=== PATIENT | male | born 1935 | race Caucasian/White ===

== ENCOUNTER → 2019-02-07 16:45 | Outpatient (CLI) | payer OTHER, SELFPAY ==
--- NOTE | 2019-02-07 16:49 | DI.RAD.S_ITS ---
PROCEDURE: XR CHEST 2V INDICATIONS: shortness of breath TECHNIQUE: 2 views of the chest were acquired. COMPARISON: [facility], RG, XR UGI AIR CONTRAST WITH KUB, 05/27/2005, 8:33. [facility], RG, XR CXR 2 VIEW, 08/20/2003, 8:34. FINDINGS: Surgical changes and devices: None. Lungs and pleura: Lungs are clear. No pleural effusions or pneumothorax. The lungs are hyperexpanded, with flattening of the hemidiaphragms seen. Mediastinum: Mediastinal contours are normal. Heart size is normal. There is a large retrocardiac hiatal hernia seen. Bones and chest wall: No suspicious bony abnormalities. Age-appropriate bony degenerative changes are seen. Soft tissues appear unremarkable. IMPRESSION: Hyperexpanded lungs, without an acute cardiopulmonary process identified. Large retrocardiac hiatal hernia again identified. Dictated by: Jaylan James M.D. on 02/07/2019 at 16:04 Approved by: Jaylan James M.D. on 02/07/2019 at 16:04
== END ==
PROVIDERS: Visit Provider Physician Assistant
DX: R06.02 Shortness of breath (principal); K44.9 Diaphragmatic hernia without obstruction or gangrene
CPT/HCPCS: 71046

== ENCOUNTER 2019-02-07 17:51 | Emergency (ER) | payer OTHER, SELFPAY ==
[2019-02-07 17:55] VITALS: BP 108/82; PULSE 82; RESP 15; TEMP 36.7; O2SAT 93; BMI 27.1
--- NOTE | 2019-02-07 18:44 | ED.URI ---
HPI - URI/Sore Throat <STEVE Ziegler - Last Filed: 02/07/19 20:03> General Chief Complaint: Upper Respiratory Symptoms Stated Complaint: SENT BY [facility] Time Seen by Provider: 02/07/19 18:10 Source: patient and family Mode of arrival: ambulatory Limitations: no limitations History of Present Illness HPI Narrative: The patient is an 83-year-old female former smoker who presents with his for chief complaint of generalized fatigue and rhinorrhea. He states that he was seen at the walk-in clinic today, an x-ray was taken. He later received a phone call to come to the emergency department to have his heart evaluated. He denies any chest pain, cough, shortness of breath. He states his primary concern is fatigue, which has been ongoing since he went to a wedding in [place] this weekend. He denies any fevers. Denies any cough. He does complain of nasal congestion. Denies any nausea vomiting or diarrhea. Denies any abdominal pain. Denies any ear pain. Denies any sore throat. Related Data Home Medications Medication Instructions Recorded Confirmed aspirin 81 mg PO QDAY #0 08/13/12 latanoprost [Xalatan] 1 gtt OU HS #0 08/13/12 Allergies Allergy/AdvReac Type Severity Reaction Status Date / Time No Known Drug Allergies Allergy Verified 02/07/19 18:02 Review of Systems <STEVE Ziegler - Last Filed: 02/07/19 20:03> Review of Systems GENERAL: See HPI HEENT: See HPI RESPIRATORY: Denies dyspnea, cough, wheezing, hemoptysis, sputum. CARDIOVASCULAR: Denies chest pain, palpitations, orthopnea, edema, GASTROINTESTINAL: Denies nausea, vomiting, abdominal pain, diarrhea, constipation, melena. : Denies dysuria, frequency, incontinence, hematuria, urinary retention. MUSCULOSKELETAL: denies weakness, joint pain, or bony pain SKIN: Denies rash, skin lesions, or other NEUROLOGIC: Denies weakness, headache, numbness, change in speech, confusion, seizures, incoordination. PSYCHIATRIC: No concerning psychosocial issues. 12 point review of systems is negative except for those stated above PFSH <STEVE Ziegler - Last Filed: 02/07/19 20:03> Social History Smoking Status: Former smoker Social History Smoking Status: Former smoker Exam <STEVE Ziegler - Last Filed: 02/07/19 20:03> Narrative Exam Narrative: GENERAL: This obese patient, in no acute distress HEAD: Atraumatic. Normocephalic. No temporal or scalp tenderness. No pain is sinus palpation EYES: Pupils equal round and reactive. Extraocular motions intact. No scleral icterus. No injection or drainage. ENT: Nose without bleeding, purulent drainage or septal hematoma. Throat without erythema, tonsillar hypertrophy or exudate. Uvula midline. Airway patent. Bilateral TMs pearly og NECK: Trachea midline. No JVD or lymphadenopathy. Supple, nontender, no meningeal signs. CARDIOVASCULAR: Regular rate and rhythm RESPIRATORY: Clear to auscultation. Breath sounds equal bilaterally. No wheezes, rales, or rhonchi. No cough. No increased respiratory effort. No accessory muscle use. No stridor. GASTROINTESTINAL: Abdomen soft, non-tender, nondistended. No hepato-splenomegaly, or palpable masses. No guarding. EXTREMITIES: No clubbing, cyanosis, or edema. No joint tenderness, effusion, or edema noted. BACK: Nontender without deformity or crepitance. No flank tenderness. NEURO: AOx3. SKIN: No rash or erythema. Initial Vital Signs Initial Vital Signs: Vital Signs Temperature 98.1 F 02/07/19 17:55 Pulse Rate 82 02/07/19 17:55 Respiratory Rate 15 02/07/19 17:55 Blood Pressure 108/82 02/07/19 17:55 Pulse Oximetry 93 02/07/19 17:55 <Pablo Emanuel DO - Last Filed: 02/07/19 21:12> Initial Vital Signs Initial Vital Signs: Vital Signs Temperature 98.1 F 02/07/19 17:55 Pulse Rate 82 02/07/19 17:55 Respiratory Rate 15 02/07/19 17:55 Blood Pressure 108/82 02/07/19 17:55 Pulse Oximetry 93 02/07/19 17:55 Course <STEVE Ziegler - Last Filed: 05/22/19 20:03> Orders Ordered: ED Orders 02/07/19 18:26 EKG-12 Lead Stat 02/07/19 19:00 B Type Natriuretic Peptide Stat Complete Blood Count AUTO DIFF Stat Comprehensive Metabolic Panel Stat Prothrombin Time INR Stat Troponin & CK Cardiac Panel Stat Vital Signs - 8 hr 02/07/19 17:55 02/07/19 19:51 Temperature 98.1 F Pulse Rate 82 72 Respiratory Rate 15 20 Blood Pressure 108/82 Blood Pressure [Left Arm] 124/55 L Pulse Oximetry 93 95 <Pablo Emanuel DO - Last Filed: 02/07/19 21:12> Orders Ordered: ED Orders 02/07/19 18:26 EKG-12 Lead Stat 02/07/19 19:00 B Type Natriuretic Peptide Stat Complete Blood Count AUTO DIFF Stat Comprehensive Metabolic Panel Stat Prothrombin Time INR Stat Troponin & CK Cardiac Panel Stat Vital Signs - 8 hr 02/07/19 17:55 02/07/19 19:51 Temperature 98.1 F Pulse Rate 82 72 Respiratory Rate 15 20 Blood Pressure 108/82 Blood Pressure [Left Arm] 124/55 L Pulse Oximetry 93 95 MDM - URI/Sore Throat <ABRAHAM Ziegler-BC - Last Filed: 02/07/19 20:03> Lab Data Result diagrams: 02/07/19 19:00 02/07/19 19:00 Lab Results 02/07/19 02/07/19 02/07/19 Range/Units 19:00 19:00 19:00 WBC 4.9 (4.5-11.0) X10^3/uL RBC 4.96 (4.5-5.9) X10^6/uL Hgb 15.2 (13.5-17.5) g/dL Hct 46.4 (41-53) % MCV 93.5 (80-100) fL MCH 30.6 (26-34) PG MCHC 32.7 (30-36) % RDW 13.7 (11.6-14.8) % Plt Count 134 L (150-400) X10^3/uL Neut % (Auto) 75.4 H (50-75) % Lymph % (Auto) 11.1 L (25-40) % [place] % (Auto) 10.7 (3-14) % Eos % (Auto) 2.3 (2-4) % Baso % (Auto) 0.5 (0-2) % Neut # (Auto) 3700 (1350-3170) /uL Lymph # (Auto) 500 L (4082-4807) /uL [place] # (Auto) 500 (0-900) /uL Eos # (Auto) 100 (0-450) /uL Baso # (Auto) 0 (0-100) /uL PT 13.2 H (10.1-12.7) SECONDS INR 1.1 (0.9-1.3) Sodium 138 (137-145) mmol/L Potassium 4.3 (3.4-5.1) mmol/L Chloride 104 (98-107) mmol/L Carbon Dioxide 25 (22-32) mmol/L BUN 25 H (9-20) mg/dL Creatinine 1.30 H (0.66-1.25) mg/dL Estimated GFR 53.0 L (>60) mL/min BUN/Creatinine Ratio 19.2 (6-22) Glucose 95 (80-110) mg/dL Calcium 8.6 (8.4-10.2) mg/dL Total Bilirubin 0.7 (0.2-1.3) mg/dL AST 22 (17-59) IU/L ALT 20 L (21-72) IU/L Alkaline Phosphatase 63 (38-126) U/L Total Creatine Kinase 64 (55-170) U/L CK-MB (CK-2) TNP CK-MB (CK-2) Rel Index TNP Troponin I < 0.012 (0.01-0.034) ng/mL B-Natriuretic Peptide 140 H (<100) Total Protein 7.1 (6.3-8.2) g/dL Albumin 3.7 (3.5-5.0) g/dL Globulin 3.4 (1.7-4.1) g/dL Albumin/Globulin Ratio 1.1 (1.0-2.8) ECG Data Attestation: I personally reviewed and interpreted this ECG as follows: Interpretation: Sinus rhythm. Ventricular rate 77. Left bundle branch noted. No ectopy noted. viewed by Dr Adelfo ELLSWORTH Narrative Medical decision making narrative: The patient is an 83-year-old male who presents with sinus congestion and fatigue. He was evaluated at the walk-in clinic earlier today, and sent here for further cardiac rule out. His chest x-ray from earlier today had no abnormality other than hyperinflation, as well as his known hiatal hernia. I did not repeat his chest x-ray. I did do basic labs as well as an EKG. The patient and his requested to leave multiple times during his stay in the emergency department. He has some slightly decreased renal function, but no elevation of troponin. I discussed at length that he needs to follow up with primary care physician and gave him contact information for the health district resource officer. Coming going back to the emergency department for chest pain or shortness of breath or other acute concerns. Regarding his URI symptoms, I encouraged trial of nasal rinse as well as Flonase and vakr-kjr-[id number] medications. Encouraged the patient to follow up with a primary care provider multiple times. <Pablo Emanuel DO - Last Filed: 02/07/19 21:12> Lab Data Lab Results 02/07/19 02/07/19 02/07/19 Range/Units 19:00 19:00 19:00 WBC 4.9 (4.5-11.0) X10^3/uL RBC 4.96 (4.5-5.9) X10^6/uL Hgb 15.2 (13.5-17.5) g/dL Hct 46.4 (41-53) % MCV 93.5 (80-100) fL MCH 30.6 (26-34) PG MCHC 32.7 (30-36) % RDW 13.7 (11.6-14.8) % Plt Count 134 L (150-400) X10^3/uL Neut % (Auto) 75.4 H (50-75) % Lymph % (Auto) 11.1 L (25-40) % [place] % (Auto) 10.7 (3-14) % Eos % (Auto) 2.3 (2-4) % Baso % (Auto) 0.5 (0-2) % Neut # (Auto) 3700 (6370-0027) /uL Lymph # (Auto) 500 L (8044-7434) /uL [place] # (Auto) 500 (0-900) /uL Eos # (Auto) 100 (0-450) /uL Baso # (Auto) 0 (0-100) /uL PT 13.2 H (10.1-12.7) SECONDS INR 1.1 (0.9-1.3) Sodium 138 (137-145) mmol/L Potassium 4.3 (3.4-5.1) mmol/L Chloride 104 (98-107) mmol/L Carbon Dioxide 25 (22-32) mmol/L BUN 25 H (9-20) mg/dL Creatinine 1.30 H (0.66-1.25) mg/dL Estimated GFR 53.0 L (>60) mL/min BUN/Creatinine Ratio 19.2 (6-22) Glucose 95 (80-110) mg/dL Calcium 8.6 (8.4-10.2) mg/dL Total Bilirubin 0.7 (0.2-1.3) mg/dL AST 22 (17-59) IU/L ALT 20 L (21-72) IU/L Alkaline Phosphatase 63 (38-126) U/L Total Creatine Kinase 64 (55-170) U/L CK-MB (CK-2) TNP CK-MB (CK-2) Rel Index TNP Troponin I < 0.012 (0.01-0.034) ng/mL B-Natriuretic Peptide 140 H (<100) Total Protein 7.1 (6.3-8.2) g/dL Albumin 3.7 (3.5-5.0) g/dL Globulin 3.4 (1.7-4.1) g/dL Albumin/Globulin Ratio 1.1 (1.0-2.8) Discharge Plan Departure Patient Disposition: Home Clinical Impression: Upper respiratory infection Qualifiers: URI type: unspecified viral URI Qualified Code(s): J06.9 - Acute upper respiratory infection, unspecified Discharge Date/Time: 02/07/19 19:59 Interventions: ED Discharge Assessment Last Done: 02/07/19 19:59 Instructions: DI for Viral Upper Respiratory Infection -- Adult Activity Restrictions/Additional Instructions: Please follow up with primary care provider. I have given you contact information to the health district resource officer at [facility]. They can help you find a primary care provider. Your kidney function is slightly reduced. I suggest a combination of Flonase, Esteban med sinus rinse and/or Neti pot. You can use [id number]-[id number] medications as needed and able. Please come back to the emergency department for any acute concerns such as chest pain, shortness of breath, concern of heart attack or stroke Prescriptions: No Action latanoprost [Xalatan] 0.005 % drops 1 gtt OU HS Qty: 0 RF: 0 aspirin 81 MG tablet,chewable 81 mg PO QDAY Qty: 0 RF: 0 Referrals: [facility] [Outside] <Pablo Emanuel DO - Last Filed: 02/07/19 21:12> Cosign ED Attending Lloyd Attestation: I was available for consultation during this patient's emergency department encounter
[2019-02-07 19:10] LABS: Add Manual Diff / Slide Review NO; Basophils Absolute Auto 0 /uL (0-100); Basophils Percent Auto 0.5 % (0-2); Eosinophils Absolute Auto 100 /uL (0-450); Eosinophils Percent Auto 2.3 % (2-4); Hematocrit 46.4 % (41-53); Hemoglobin 15.2 g/dL (13.5-17.5); Lymphocytes Absolute Auto 500 /uL (1100-4500); Lymphocytes Percent Auto 11.1 % (25-40); Mean Corpuscular HGB Conc 32.7 % (30-36); Mean Corpuscular Hemoglobin 30.6 PG (26-34); Mean Corpuscular Volume 93.5 fL (80-100); Monocytes Absolute Auto 500 /uL (0-900); Monocytes Percent Auto 10.7 % (3-14); Neutrophils Absolute Auto 3700 /uL (1500-7000); Neutrophils Percent Auto 75.4 % (50-75); Platelet Count 134 X10^3/uL (150-400); Red Blood Cell Count 4.96 X10^6/uL (4.5-5.9); Red Cell Distribution Width 13.7 % (11.6-14.8); White Blood Cell Count 4.9 X10^3/uL (4.5-11.0)
--- NOTE | 2019-02-07 19:11 | PC.NURSE ---
Pt states the yoanna huang is working.
[2019-02-07 19:17] LABS: INR 1.1 (0.9-1.3); Prothrombin Time 13.2 SECONDS (10.1-12.7)
[2019-02-07 19:22] LABS: Alanine Aminotransferase 20 IU/L (21-72); Albumin 3.7 g/dL (3.5-5.0); Albumin Globulin Ratio 1.1 (1.0-2.8); Alkaline Phosphatase 63 U/L (38-126); Aspartate Aminotransferase 22 IU/L (17-59); BUN Creatinine Ratio 19.2 (6-22); Bilirubin Total 0.7 mg/dL (0.2-1.3); Blood Urea Nitrogen 25 mg/dL (9-20); Calcium 8.6 mg/dL (8.4-10.2); Carbon Dioxide 25 mmol/L (22-32); Chloride 104 mmol/L (98-107); Creatine Kinase 64 U/L (55-170); Globulin 3.4 g/dL (1.7-4.1); Glucose 95 mg/dL (80-110); HEMOLYSIS < 15 (0-50); Potassium 4.3 mmol/L (3.4-5.1); Sodium 138 mmol/L (137-145); Total Protein 7.1 g/dL (6.3-8.2)
[2019-02-07 19:29] LABS: B Type Natriuretic Peptide 140 (<100)
[2019-02-07 19:34] LABS: Troponin I < 0.012 ng/mL (0.01-0.034)
[2019-02-07 19:51] VITALS: BP 124/55; PULSE 72; RESP 20; O2SAT 95
== END 2019-02-07 19:59 | disposition home or self-care (01) ==
PROVIDERS: Emergency Provider Nurse Practitioner Family
DX: J06.9 Acute upper respiratory infection, unspecified (principal); R53.83 Other fatigue
CPT/HCPCS: 36415; 71046; 80053; 82550; 83880; 84484; 85025; 85610; 93005; 93010; 99282; 99284

== ENCOUNTER 2023-02-08 11:06 | Inpatient (IN) | payer OTHER, SELFPAY ==
[2023-02-08] VITALS (44 sets, daily range): BP systolic 103–158; BP diastolic 58–125; PULSE 61–131; RESP 14–34; TEMP 36.3–36.8; O2SAT 91–98; BMI 28.0
--- NOTE | 2023-02-08 11:27 | DI.RAD.S_ITS ---
PROCEDURE: XR CHEST 1V INDICATIONS: Shortness of breath TECHNIQUE: One view of the chest was acquired. COMPARISON: [facility], CR, XR CHEST 2V, 02/07/2019, 16:52. FINDINGS: Surgical changes and devices: None. Lungs and pleura: [id number] diffuse lung disease. This is increased from prior imaging. Mediastinum: Borderline enlarged heart. Suspected hiatal hernia. Bones and chest wall: No suspicious bony lesions. Overlying soft tissues appear unremarkable. IMPRESSION: [id number]-[id number] infectious or inflammatory lung disease, versus edema. Consider future imaging surveillance to assess for resolution. Dictated by: Damion Porras M.D. on 02/08/2023 at 12:15 Approved by: Damion Porras M.D. on 02/08/2023 at 12:16
[2023-02-08] MEDS: ALBUTEROL/IPRATROPIUM 3 ML AMPUL INH (11:48)
[2023-02-08 11:53] LABS: Add Manual Diff / Slide Review NO; Basophils Absolute Auto 100 /uL (0-100); Basophils Percent Auto 0.7 % (0-2); Eosinophils Absolute Auto 300 /uL (0-450); Eosinophils Percent Auto 4.6 % (2-4); Hematocrit 46.5 % (41-53); Hemoglobin 15.5 g/dL (13.5-17.5); Lymphocytes Absolute Auto 1200 /uL (1100-4500); Lymphocytes Percent Auto 16.6 % (25-40); Mean Corpuscular HGB Conc 33.3 % (30-36); Mean Corpuscular Hemoglobin 31.5 PG (26-34); Mean Corpuscular Volume 94.5 fL (80-100); Monocytes Absolute Auto 700 /uL (0-900); Monocytes Percent Auto 9.7 % (3-14); Neutrophils Absolute Auto 5100 /uL (1500-7000); Neutrophils Percent Auto 68.4 % (50-75); Platelet Count 197 X10^3/uL (150-400); Red Blood Cell Count 4.92 X10^6/uL (4.5-5.9); Red Cell Distribution Width 14.1 % (11.6-14.8); White Blood Cell Count 7.4 X10^3/uL (4.5-11.0)
[2023-02-08 12:00] LABS: D Dimer 971 ng/ml (<500)
[2023-02-08 12:04] LABS: INR 1.2 (0.9-1.3); Prothrombin Time 13.2 SECONDS (10.1-12.7)
[2023-02-08 12:08] LABS: Alanine Aminotransferase 29 IU/L (<50); Albumin 4.1 g/dL (3.5-5.0); Albumin Globulin Ratio 1.2 (1.0-2.8); Alkaline Phosphatase 91 U/L (38-126); Aspartate Aminotransferase 32 IU/L (17-59); BUN Creatinine Ratio 18.9 (6-22); Bilirubin Total 1.1 mg/dL (0.2-1.3); Blood Urea Nitrogen 33 mg/dL (9-20); Calcium 8.9 mg/dL (8.4-10.2); Carbon Dioxide 25 mmol/L (22-32); Chloride 104 mmol/L (98-107); Estimated Glomerular Filt Rate 38 mL/min (>60); Globulin 3.5 g/dL (1.7-4.1); Glucose 128 mg/dL (80-110); Lactate (Lactic Acid) 1.4 mmol/L (0.7-2.1); Potassium 4.8 mmol/L (3.4-5.1); Sodium 140 mmol/L (137-145); Total Protein 7.6 g/dL (6.3-8.2)
[2023-02-08 12:21] LABS: HEMOLYSIS < 15 (0-50); NT-proBNP (BNP-Adult 18+) 10400 pg/mL (<450); Troponin I 0.013 ng/mL (0.01-0.034)
[2023-02-08 13:13] LABS: Adenovirus Not Detected (Not Detect); B. parapertussis Not Detected (Not Detecte); Bordetella pertussis Not Detected (Not Detecte); Chlamydophila pneumoniae Not Detected (Not Detect); Coronavirus 229E Not Detected (Not Detect); Coronavirus HKU1 Not Detected (Not Detect); Coronavirus NL 63 Not Detected (Not Detect); Coronavirus OC43 Not Detected (Not Detect); Human Metapneumovirus Not Detected (Not Detect); Human Rhinovirus/Enterovirus Not Detected (Not Detect); Influenza A Not Detected (Not Detect); Influenza B Not Detected (Not Detect); Mycoplasma pneumoniae Not Detected (Not Detect); Parainfluenza Virus 1 Not Detected (Not Detect); Parainfluenza Virus 2 Not Detected (Not Detect); Parainfluenza Virus 3 Not Detected (Not Detect); Parainfluenza Virus 4 Not Detected (Not Detect); Respiratory Syncytial Virus Not Detected (Not Detect); SARS- CoV-2 Not Detected (Not Detecte)
--- NOTE | 2023-02-08 14:07 | ED_ITS ---
HPI - SOB/Dyspnea General Chief Complaint: Shortness of Breath/Dyspnea Stated Complaint: shortness of breath Time Seen by Provider: 02/08/23 13:53 Source: patient Mode of arrival: Ambulatory Limitations: no limitations History of Present Illness HPI Narrative: This is an 87-year-old male with history of stroke and former tobacco use who presents with complaint of shortness of breath for the past week and a half that has been increasing, orthopnea which is, patient states he is able to ambulate and feels better when he ambulates but has had decreased energy. He is not appreciate a lot of swelling in his lower extremities. He does had chest pain often off intermittently. It is becoming more frequent. He states it is substernal does not radiate. Patient states not present at this moment. He denies cough, he denies fevers or chills. He denies nausea or vomiting, no syncope, no bowel movements or urinary issues. Patient states he is on a baby aspirin daily for his prior stroke. He states no other daily medications. Denies any prior surgeries. No known drug allergies. Quit tobacco around 1999, no active alcohol use, no illicit. Dr. Paulino is his primary care. He is accompanied by his and daughters. Related Data Home Medications Medication Instructions Recorded Confirmed aspirin 81 mg chewable tablet 81 mg PO QDAY ##0 08/13/12 02/08/23 latanoprost 0.005 % eye drops 1 gtt OU HS ##0 08/13/12 02/08/23 (Xalatan) Allergies Allergy/AdvReac Type Severity Reaction Status Date / Time No Known Drug Allergies Allergy Verified 02/08/23 11:23 Review of Systems Review of Systems ROS Unobtainable: All systems reviewed & are unremarkable except as noted in HPI and below Patient History Social History household members: spouse Smoking Status: Former smoker alcohol intake: former Smoking Status: Former smoker alcohol intake frequency: holidays/special occasions only Substance Use Type: does not use Exam Narrative Exam Narrative: GENERAL: Alert and oriented x three, elderly male in mild distress. HEENT: Head normocephalic, atraumatic, EOMI, pupils reactive, face symmetric, moist mucous membranes NECK: Supple, full range of motion CARDIOVASCULAR: Slightly tachycardic, occasionally irregularly irregular rate and rhythm without murmurs, rubs or gallops. No swelling bilateral lower extremities. Mild JVD. RESPIRATORY: Breath sounds equal bilaterally, no wheezes, no rhonchi. Bilateral crackles in the bases. Mild tachypnea. No accessory muscle use. Patient does speak 4-5 word sentences. ABDOMEN: Soft, nontender. Normoactive bowel sounds all 4 quadrants. No guarding or rebound, rigidity, no mass : No CVA tenderness EXTREMITIES: Normal range of motion, no clubbing or edema. Neurovascularly intact NEUROLOGICAL: Cranial nerves II through XII grossly intact. Moving all extremities SKIN: Warm, dry, no petechiae, no rashes or lesions. Initial Vital Signs Initial Vital Signs: Vital Signs Pulse Rate 126 H 02/08/23 11:21 Respiratory Rate 27 H 02/08/23 11:21 Pulse Oximetry 93 02/08/23 11:21 Course Orders Ordered: ED Orders 02/08/23 11:27 XR chest 1V Stat EKG-12 Lead Stat Measure peak expiratory flow ONCE RT Consult Eval and Treat NOW 02/08/23 11:35 EKG-12 Lead Routine 02/08/23 11:45 Complete Blood Count AUTO DIFF Stat Comprehensive Metabolic Panel Stat D Dimer Stat Lactate (Lactic Acid) Stat NT-proBNP (BNP-Adult 18+) Stat Prothrombin Time INR Stat Troponin I Stat 02/08/23 12:06 Respiratory Panel (Film Array) Stat 02/08/23 14:26 CT angio chest PE protocol Stat 02/08/23 14:32 Magnesium Stat Trop I [Troponin I] Stat 02/08/23 15:48 EC echo doppler complete Stat 02/08/23 22:00 PTT Partial Thromboplastin Abisai Q6H 02/09/23 04:00 PTT Partial Thromboplastin Abisai Q6H 02/09/23 05:00 Hemoglobin and Hematocrit DAILY Platelet Count DAILY 02/09/23 10:00 PTT Partial Thromboplastin Abisai Q6H 02/10/23 05:00 Hemoglobin and Hematocrit DAILY Platelet Count DAILY Heparin Sodium/Dextrose (Heparin Drip) 25,000 unit in 500 mls @ 20 mls/hr IV CONT BART; Protocol Last Admin: 02/08/23 17:28 Dose: 1,000 units/hr, 20 mls/hr Documented By: CLP Co-signed By: TLS Discontinued Medications Albuterol/Ipratropium (Albuterol/Ipratropium 3 Ml Ampul) 3 ml INH NOW ONE Stop: 02/08/23 11:44 Last Admin: 02/08/23 11:48 Dose: 3 ml Documented By: REGINE Aspirin (Aspirin 81 Mg Chew Tab) 324 mg PO NOW ONE Stop: 02/08/23 14:27 Last Admin: 02/08/23 14:53 Dose: 324 mg Documented By: NR Heparin Sodium (Porcine) (Heparin 5,000 Unit/Ml Vial) 6,900 unit 80 unit/kg (6900 unit) IV NOW ONE Stop: 02/08/23 15:49 Last Admin: 02/08/23 17:04 Dose: 6,900 unit Documented By: NR Furosemide 60 mg/ Sodium (Chloride) 56 mls @ 112 mls/hr IV NOW ONE Stop: 02/08/23 14:27 Last Infusion: 02/08/23 15:34 Dose: 0 mls/hr Documented By: Admin: 02/08/23 14:54 Dose: 112 mls/hr Documented By: NATALIIA Pantoprazole Sodium (Pantoprazole 40 Mg Vial) 40 mg IV NOW ONE Stop: 02/08/23 15:49 Last Admin: 02/08/23 17:04 Dose: 40 mg Documented By: NATALIIA Vital Signs Vital signs: Vital Signs - 8 hr 02/08/23 11:23 02/08/23 11:53 02/08/23 11:21 Temperature 98.2 F Pulse Rate 126 H 126 H Respiratory Rate 32 H 27 H Blood Pressure 151/85 H Pulse Oximetry 94 91 93 Oxygen Delivery Method Room Air Room Air 02/08/23 11:30 02/08/23 11:30 02/08/23 11:45 Temperature Pulse Rate 127 H 127 H Respiratory Rate 32 H 34 H Blood Pressure 139/78 Pulse Oximetry 94 93 Oxygen Delivery Method 02/08/23 12:00 02/08/23 12:02 02/08/23 12:02 Temperature Pulse Rate 124 H 122 H Respiratory Rate 14 30 H Blood Pressure 118/73 Pulse Oximetry 95 95 Oxygen Delivery Method Room Air 02/08/23 12:15 02/08/23 12:15 02/08/23 12:30 Temperature Pulse Rate 107 H 113 H Respiratory Rate 29 H 29 H Blood Pressure 134/78 Pulse Oximetry 91 91 Oxygen Delivery Method 02/08/23 12:31 02/08/23 12:31 02/08/23 12:45 Temperature Pulse Rate 113 H Respiratory Rate 30 H Blood Pressure 110/84 123/90 Pulse Oximetry 91 Oxygen Delivery Method Room Air 02/08/23 12:45 02/08/23 13:00 02/08/23 13:07 Temperature Pulse Rate 116 H 117 H Respiratory Rate 25 H 27 H Blood Pressure 149/98 H Pulse Oximetry 92 Oxygen Delivery Method 02/08/23 13:07 02/08/23 13:15 02/08/23 13:15 Temperature Pulse Rate 113 H 123 H Respiratory Rate 29 H 28 H Blood Pressure 139/92 H Pulse Oximetry 93 Oxygen Delivery Method 02/08/23 13:30 02/08/23 13:30 02/08/23 13:45 Temperature Pulse Rate 119 H Respiratory Rate 29 H Blood Pressure 125/89 127/94 H Pulse Oximetry 93 Oxygen Delivery Method 02/08/23 13:45 02/08/23 14:00 02/08/23 14:00 Temperature Pulse Rate 121 H 109 H Respiratory Rate 30 H 32 H Blood Pressure 155/125 H Pulse Oximetry 94 94 Oxygen Delivery Method Room Air 02/08/23 14:08 02/08/23 14:08 02/08/23 14:15 Temperature Pulse Rate 122 H 118 H Respiratory Rate 30 H 30 H Blood Pressure 147/80 H Pulse Oximetry 93 94 Oxygen Delivery Method 02/08/23 14:16 02/08/23 14:16 02/08/23 14:30 Temperature Pulse Rate 115 H 120 H Respiratory Rate 29 H 32 H Blood Pressure 151/83 H Pulse Oximetry 94 94 Oxygen Delivery Method 02/08/23 14:43 02/08/23 14:43 02/08/23 14:45 Temperature Pulse Rate 124 H Respiratory Rate 31 H Blood Pressure 103/75 105/84 Pulse Oximetry 95 Oxygen Delivery Method 02/08/23 14:45 02/08/23 15:00 02/08/23 15:00 Temperature Pulse Rate 126 H 125 H Respiratory Rate 29 H 27 H Blood Pressure 117/93 H Pulse Oximetry 94 91 Oxygen Delivery Method 02/08/23 15:15 02/08/23 15:15 02/08/23 15:30 Temperature Pulse Rate 121 H Respiratory Rate 26 H Blood Pressure 129/103 H 145/116 H Pulse Oximetry 94 Oxygen Delivery Method 02/08/23 15:30 02/08/23 15:45 02/08/23 15:45 Temperature Pulse Rate 124 H 110 H Respiratory Rate 32 H 29 H Blood Pressure 158/105 H Pulse Oximetry 93 93 Oxygen Delivery Method Room Air 02/08/23 16:00 02/08/23 16:00 Temperature Pulse Rate 122 H Respiratory Rate 33 H Blood Pressure 155/91 H Pulse Oximetry 95 Oxygen Delivery Method MDM - SOB/Dyspnea Lab Data 02/08/23 11:45 02/08/23 11:45 Labs: Lab Results 02/08/23 02/08/23 02/08/23 Range/Units 11:45 11:45 11:45 WBC 7.4 (4.5-11.0) X10^3/uL RBC 4.92 (4.5-5.9) X10^6/uL Hgb 15.5 (13.5-17.5) g/dL Hct 46.5 (41-53) % MCV 94.5 (80-100) fL MCH 31.5 (26-34) PG MCHC 33.3 (30-36) % RDW 14.1 (11.6-14.8) % Plt Count 197 (150-400) X10^3/uL Neut % (Auto) 68.4 (50-75) % Lymph % (Auto) 16.6 L (25-40) % [place] % (Auto) 9.7 (3-14) % Eos % (Auto) 4.6 H (2-4) % Baso % (Auto) 0.7 (0-2) % Neut # (Auto) 5100 (6242-8191) /uL Lymph # (Auto) 1200 (0183-2493) /uL [place] # (Auto) 700 (0-900) /uL Eos # (Auto) 300 (0-450) /uL Baso # (Auto) 100 (0-100) /uL PT 13.2 H (10.1-12.7) SECONDS INR 1.2 (0.9-1.3) D-Dimer (<500) ng/ml Sodium 140 (137-145) mmol/L Potassium 4.8 (3.4-5.1) mmol/L Chloride 104 (98-107) mmol/L Carbon Dioxide 25 (22-32) mmol/L BUN 33 H (9-20) mg/dL Creatinine 1.75 H (0.66-1.25) mg/dL Estimated GFR 38 L (>60) mL/min BUN/Creatinine Ratio 18.9 (6-22) Glucose 128 H (80-110) mg/dL Lactate (0.7-2.1) mmol/L Calcium 8.9 (8.4-10.2) mg/dL Magnesium (1.6-2.3) mg/dL Total Bilirubin 1.1 (0.2-1.3) mg/dL AST 32 (17-59) IU/L ALT 29 (<50) IU/L Alkaline Phosphatase 91 (38-126) U/L Troponin I 0.013 (0.01-0.034) ng/mL NT-Pro-B Natriuret Pep 72696 H (<450) pg/mL Total Protein 7.6 (6.3-8.2) g/dL Albumin 4.1 (3.5-5.0) g/dL Globulin 3.5 (1.7-4.1) g/dL Albumin/Globulin Ratio 1.2 (1.0-2.8) Chlamy pneumoniae PCR (Not Detect) Adenovirus (PCR) (Not Detect) B. pertussis DNA (PCR) (Not Detecte) B.parapertussis DNA PCR (Not Detecte) Coronavirus OC43 (PCR) (Not Detect) Coronavirus HKU1 (PCR) (Not Detect) Coronavirus 229E (PCR) (Not Detect) SARS-CoV-2 (PCR) (Not Detecte) Coronavirus NL63 (PCR) (Not Detect) Human Metapneumovir PCR (Not Detect) Influenza Type A (PCR) (Not Detect) Influenza Type B (PCR) (Not Detect) M. pneumoniae (PCR) (Not Detect) Parainfluenza 1 (PCR) (Not Detect) Parainfluenza 2 (PCR) (Not Detect) Parainfluenza 3 (PCR) (Not Detect) Parainfluenza 4 (PCR) (Not Detect) RSV (PCR) (Not Detect) Entero/Rhino (PCR) (Not Detect) 02/08/23 02/08/23 02/08/23 Range/Units 11:45 11:45 12:06 WBC (4.5-11.0) X10^3/uL RBC (4.5-5.9) X10^6/uL Hgb (13.5-17.5) g/dL Hct (41-53) % MCV (80-100) fL MCH (26-34) PG MCHC (30-36) % RDW (11.6-14.8) % Plt Count (150-400) X10^3/uL Neut % (Auto) (50-75) % Lymph % (Auto) (25-40) % [place] % (Auto) (3-14) % Eos % (Auto) (2-4) % Baso % (Auto) (0-2) % Neut # (Auto) (7072-2781) /uL Lymph # (Auto) (2952-7220) /uL [place] # (Auto) (0-900) /uL Eos # (Auto) (0-450) /uL Baso # (Auto) (0-100) /uL PT (10.1-12.7) SECONDS INR (0.9-1.3) D-Dimer 971 H (<500) ng/ml Sodium (137-145) mmol/L Potassium (3.4-5.1) mmol/L Chloride (98-107) mmol/L Carbon Dioxide (22-32) mmol/L BUN (9-20) mg/dL Creatinine (0.66-1.25) mg/dL Estimated GFR (>60) mL/min BUN/Creatinine Ratio (6-22) Glucose (80-110) mg/dL Lactate 1.4 (0.7-2.1) mmol/L Calcium (8.4-10.2) mg/dL Magnesium (1.6-2.3) mg/dL Total Bilirubin (0.2-1.3) mg/dL AST (17-59) IU/L ALT (<50) IU/L Alkaline Phosphatase (38-126) U/L Troponin I (0.01-0.034) ng/mL NT-Pro-B Natriuret Pep (<450) pg/mL Total Protein (6.3-8.2) g/dL Albumin (3.5-5.0) g/dL Globulin (1.7-4.1) g/dL Albumin/Globulin Ratio (1.0-2.8) Chlamy pneumoniae PCR Not detected (Not Detect) Adenovirus (PCR) Not detected (Not Detect) B. pertussis DNA (PCR) Not detected (Not Detecte) B.parapertussis DNA PCR Not detected (Not Detecte) Coronavirus OC43 (PCR) Not detected (Not Detect) Coronavirus HKU1 (PCR) Not detected (Not Detect) Coronavirus 229E (PCR) Not detected (Not Detect) SARS-CoV-2 (PCR) Not detected (Not Detecte) Coronavirus NL63 (PCR) Not detected (Not Detect) Human Metapneumovir PCR Not detected (Not Detect) Influenza Type A (PCR) Not detected (Not Detect) Influenza Type B (PCR) Not detected (Not Detect) M. pneumoniae (PCR) Not detected (Not Detect) Parainfluenza 1 (PCR) Not detected (Not Detect) Parainfluenza 2 (PCR) Not detected (Not Detect) Parainfluenza 3 (PCR) Not detected (Not Detect) Parainfluenza 4 (PCR) Not detected (Not Detect) RSV (PCR) Not detected (Not Detect) Entero/Rhino (PCR) Not detected (Not Detect) 02/08/23 02/08/23 Range/Units 14:32 14:32 WBC (4.5-11.0) X10^3/uL RBC (4.5-5.9) X10^6/uL Hgb (13.5-17.5) g/dL Hct (41-53) % MCV (80-100) fL MCH (26-34) PG MCHC (30-36) % RDW (11.6-14.8) % Plt Count (150-400) X10^3/uL Neut % (Auto) (50-75) % Lymph % (Auto) (25-40) % [place] % (Auto) (3-14) % Eos % (Auto) (2-4) % Baso % (Auto) (0-2) % Neut # (Auto) (6433-3706) /uL Lymph # (Auto) (4796-6458) /uL [place] # (Auto) (0-900) /uL Eos # (Auto) (0-450) /uL Baso # (Auto) (0-100) /uL PT (10.1-12.7) SECONDS INR (0.9-1.3) D-Dimer (<500) ng/ml Sodium (137-145) mmol/L Potassium (3.4-5.1) mmol/L Chloride (98-107) mmol/L Carbon Dioxide (22-32) mmol/L BUN (9-20) mg/dL Creatinine (0.66-1.25) mg/dL Estimated GFR (>60) mL/min BUN/Creatinine Ratio (6-22) Glucose (80-110) mg/dL Lactate (0.7-2.1) mmol/L Calcium (8.4-10.2) mg/dL Magnesium 2.1 (1.6-2.3) mg/dL Total Bilirubin (0.2-1.3) mg/dL AST (17-59) IU/L ALT (<50) IU/L Alkaline Phosphatase (38-126) U/L Troponin I 0.014 (0.01-0.034) ng/mL NT-Pro-B Natriuret Pep (<450) pg/mL Total Protein (6.3-8.2) g/dL Albumin (3.5-5.0) g/dL Globulin (1.7-4.1) g/dL Albumin/Globulin Ratio (1.0-2.8) Chlamy pneumoniae PCR (Not Detect) Adenovirus (PCR) (Not Detect) B. pertussis DNA (PCR) (Not Detecte) B.parapertussis DNA PCR (Not Detecte) Coronavirus OC43 (PCR) (Not Detect) Coronavirus HKU1 (PCR) (Not Detect) Coronavirus 229E (PCR) (Not Detect) SARS-CoV-2 (PCR) (Not Detecte) Coronavirus NL63 (PCR) (Not Detect) Human Metapneumovir PCR (Not Detect) Influenza Type A (PCR) (Not Detect) Influenza Type B (PCR) (Not Detect) M. pneumoniae (PCR) (Not Detect) Parainfluenza 1 (PCR) (Not Detect) Parainfluenza 2 (PCR) (Not Detect) Parainfluenza 3 (PCR) (Not Detect) Parainfluenza 4 (PCR) (Not Detect) RSV (PCR) (Not Detect) Entero/Rhino (PCR) (Not Detect) Imaging Data Chest x-ray: Radiologist's Impression: [address] [address] XRay Report Signed Patient: Bhanu Arevalo MR#: [id number] : 1935 Acct:[id number] Age/Sex: 87 / M Date of Service: 02/08/23 Loc: ED Accession Number: [id number] ?? Procedure: XR chest 1V Ordering Provider: Taylor Otero D.O. PROCEDURE:? XR CHEST 1V ? INDICATIONS:? Shortness of breath ? TECHNIQUE:? One view of the chest was acquired.? ? COMPARISON:? [facility], CR, XR CHEST 2V, 02/07/2019, 16:52. ? FINDINGS:? ? Surgical changes and devices:? None.? ? Lungs and pleura:? [id number] diffuse lung disease.? This is increased from prior imaging. ? Mediastinum:? Borderline enlarged heart.? Suspected hiatal hernia. ? Bones and chest wall:? No suspicious bony lesions.? Overlying soft tissues appear unremarkable.? ? IMPRESSION:? [id number] infectious or inflammatory lung disease, versus edema.? Consider future imaging surveillance to assess for resolution. ? ? ? Dictated by: Damion Porras M.D. on 02/08/2023 at 12:15 ? ? Approved by: Damion Porras M.D. on 02/08/2023 at 12:16?? CT scan - chest: Radiologist's Impression: Close Chest CTA (Signed) Jonathan Uriarte - 02/08/23 Chest X-Ray (Signed) Damion Porras - 02/08/23 Chest X-Ray (Signed) Jaylan James - 02/07/19 Launch?[address] [address] [address] Scan Report Signed Patient: Bhanu Arevalo MR#: [id number] : 1935 Acct:[id number] Age/Sex: 87 / M Date of Service: 02/08/23 Loc: ED Accession Number: [id number] ?? Procedure: CT angio chest PE protocol Ordering Provider: Taylor Otero D.O. PROCEDURE:? CT ANGIO CHEST PE PROTOCOL ? INDICATIONS:? chf, afib rvr new, dimer elevated. ? TECHNIQUE:? After the administration of intravenous contrast, 2 mm thick sections acquired from the pulmonary apices to the posterior costophrenic angles.? 3-dimensional maximum intensity projection (MIP) coronal and sagittal reformats were then acquired through the thorax.? For radiation dose reduction, the following was used:? automated exposure control, adjustment of mA and/or kV according to patient size.? ? COMPARISON:? None. ? FINDINGS:? Image quality:? Excellent.? ? Pulmonary arteries:? There is complete lack of contrast within the dependent, bilateral lower lobe pulmonary arteries beyond the segmental level.? For instance, the segmental pulmonary artery of the medial right lower lobe on series 4, image 107).? These vessels appear mildly expanded. ? Lungs and pleura:? Moderate right and trace left pleural effusion.? Confluent centrilobular emphysema.? Bronchial thickening.? Smooth interstitial thickening. ? Mediastinum:? Heart size is enlarged, without pericardial effusion.? No mediastinal or hilar adenopathy.? Thoracic aorta is normal in caliber and enhancement.? Esophagus is normal in caliber, with a large hiatal hernia contains the entire stomach.? The left ventricle is greater in size than the right.? Reflux of contrast into the IVC. ? Bones and chest wall:? No suspicious bony lesions.? Ribs and thoracic spine appear intact throughout.? Thyroid gland is unremarkable.? No axillary or supraclavicular adenopathy.? ? Abdomen:? Cirrhosis. ? IMPRESSION:? There is complete lack of contrast within the dependent, bilateral lower lobe pulmonary arteries beyond the segmental level.? These vessels appear mildly expanded.? While the differential includes early contrast timing, vessel expansion favors pulmonary emboli.? No evidence of infarct or heart strain. ? ? Moderate pulmonary edema, given smooth interstitial thickening, moderate right, trace left pleural effusions and bronchial thickening. ? Large hiatal hernia containing the entire stomach. ? Cirrhosis.? ? Dictated by: Jonathan Uriarte M.D. on 02/08/2023 at 14:06 ? ? Approved by: Jonathan Uriarte M.D. on 02/08/2023 at 14:11?? ECG Data Attestation: I personally reviewed and interpreted this ECG as follows: Interpretation: Sinus tachycardia left bundle-branch block, rate of 118 MT 192 QRS of 140 QTC of 510. Patient has prior from 02/07/2019 with prior left bundle-branch appears similar. AFib with a rate of 103 QRS of 140, QTC 484. Patient has left bundle-branch block with no acute or dynamic EKG changes appreciated otherwise. MDM Narrative Medical decision making narrative: This is an 87-year-old gentleman who has had increasing difficulty with breathing for the past week and a half with orthopnea he does not have a lot of swelling in his lower extremities but do suspect some CHF. He has been on aspirin but no other daily medications. He has a left bundle-branch block which is noted on prior EKGs he has been slightly tachycardic throughout his stay sometimes irregular but sometimes regular. Suspect he is flipping in and out of atrial fibrillation which may be contributing does congestive heart failure. Creatinine today is 1.75 appears bumped up from his baseline of 1.3. Hemoglobin appropriate at 15 with a crit 46, no leukocytosis, normal platelets, jorje ctrolytes do not show major changes. Lactate negative, LFTs are negative. BNP is 10,400 no priors for comparison. Initial troponin is negative and was repeated as he is had intermittent chest pain. Second troponin shows Dimer is elevated even when age adjusted and was obtained secondary to no prior CHF history. CT angio was obtained secondary to this shows possible pulmonary emboli and complete lack of contract in the dependent bilateral lower lobe pulmonary arteries below the segmental level differential includes early contrast timing but vessel expansion favors pulmonary emboli no evidence of infarct or heart strain. Moderate pulmonary edema with smooth interstitial thickening moderate right and trace left pleural effusions and bronchial thickening, large hiatal hernia and cirrhosis. Respiratory panel is negative. Patient's chest x-ray shows possible infiltrate versus inflammatory change versus edema and I suspect more edema. Discussed with Dr. Kang, plan for admission, gentle diuresis. Anticoagulation for possible pulmonary emboli, possibility include issue with contrast timing. Discussed with Dr. Loyola who accepts, will do anticoagulation with possible repeat imaging tomorrow. s rescanning tomorrow versus V/Q scan which would require ordering isotope. Patient's heart rate 120-140s during his stay. Critical Care Time Critical Care Time Attestation: The high probability of a clinically significant, sudden or life threatening deterioration of the [cardiac, pulm] system(s) required my full and direct attention, intervention and personal management. The aggregate critical care time was [] minutes. This time is in addition to time spent performing reported procedures but includes the following: [x] Data Review and interpretation [x] Patient assessment and monitoring of vital signs [x] Documentation [x] Medication orders and management Discharge Plan Departure Patient Disposition: Admitted As Inpatient Clinical Impression: Acute exacerbation of CHF (congestive heart failure), Pulmonary embolism, Atrial fibrillation with rapid ventricular response Admit Date/Time: 02/08/23 16:02 Admit Provider: Shabnam Loyola
--- NOTE | 2023-02-08 14:26 | DI.CT.S_ITS ---
PROCEDURE: CT ANGIO CHEST PE PROTOCOL INDICATIONS: chf, afib rvr new, dimer elevated. TECHNIQUE: After the administration of intravenous contrast, 2 mm thick sections acquired from the pulmonary apices to the posterior costophrenic angles. 3-dimensional maximum intensity projection (MIP) coronal and sagittal reformats were then acquired through the thorax. For radiation dose reduction, the following was used: automated exposure control, adjustment of mA and/or kV according to patient size. COMPARISON: None. FINDINGS: Image quality: Excellent. Pulmonary arteries: There is complete lack of contrast within the dependent, bilateral lower lobe pulmonary arteries beyond the segmental level. For instance, the segmental pulmonary artery of the medial right lower lobe on series 4, image 107). These vessels appear mildly expanded. Lungs and pleura: Moderate right and trace left pleural effusion. Confluent centrilobular emphysema. Bronchial thickening. Smooth interstitial thickening. Mediastinum: Heart size is enlarged, without pericardial effusion. No mediastinal or hilar adenopathy. Thoracic aorta is normal in caliber and enhancement. Esophagus is normal in caliber, with a large hiatal hernia contains the entire stomach. The left ventricle is greater in size than the right. Reflux of contrast into the IVC. Bones and chest wall: No suspicious bony lesions. Ribs and thoracic spine appear intact throughout. Thyroid gland is unremarkable. No axillary or supraclavicular adenopathy. Abdomen: Cirrhosis. IMPRESSION: There is complete lack of contrast within the dependent, bilateral lower lobe pulmonary arteries beyond the segmental level. These vessels appear mildly expanded. While the differential includes early contrast timing, vessel expansion favors pulmonary emboli. No evidence of infarct or heart strain. Moderate pulmonary edema, given smooth interstitial thickening, moderate right, trace left pleural effusions and bronchial thickening. Large hiatal hernia containing the entire stomach. Cirrhosis. Dictated by: Jonathan Uriarte M.D. on 02/08/2023 at 14:06 Approved by: Jonathan Uriarte M.D. on 02/08/2023 at 14:11
[2023-02-08] MEDS: ASPIRIN 81 MG CHEW TAB 324 MG PO (14:53)
[2023-02-08] MEDS: FUROSEMIDE 60 MG in SODIUM CHLORIDE 0.9% 50 ML 112 MG IV (14:54)
[2023-02-08 15:13] LABS: Troponin I 0.014 ng/mL (0.01-0.034)
--- NOTE | 2023-02-08 15:48 | DI.ECHO.S_ITS ---
[facility] +---------+ : : [address] : [place] : : : : [id number] : : : : Phone: [phone]+ Echocardiogram Report + + :Name: MARE HANKINS Study Date: 02/09/2023 Height: 69 in : :[facility] ReadingLocation: Weight: 190 lb : : Gender: Male BSA: 2.0 m2 : :: 1935 Age: 87 yrs BP: 119/77 mmHg: :Reason For Study: CONGESTIVE HEART FAILURE : :Ordering Physician: ZAIRE, : :LEANNA Performed By: Hue Rae : :Referring: LEANNA TAI : + + Interpretation Summary The left ventricle is moderately dilated. The ejection fraction is estimated to be 20-25%. Diastolic function could not be accurately assessed due to atrial fibrillation. The left atrium is severely dilated. The right ventricle is mildly dilated. Right ventricular systolic function is mildly reduced. The right atrium is moderately dilated. There is severe mitral regurgitation. There is mild aortic regurgitation. There is moderate tricuspid regurgitation. The right ventricular systolic pressure is estimated to be at least 53 mmHg based on an estimated right atrial pressure of 15 mm Hg. Compared to prior study dated 08/14/2012, the ejection fraction has not significantly decreased. Procedure: A two-dimensional transthoracic echocardiogram with color flow and Doppler was performed. The study quality was technically adequate. Comparison is made with the echocardiogram of 08/14/2012. The patient was in atrial fibrillation with heart rates between 68-85 bpm during the exam. Left Ventricle: There is normal left ventricular wall thickness. The left ventricle is moderately dilated. The ejection fraction is estimated to be 20- 25%. Diastolic function could not be accurately assessed due to atrial fibrillation. Right Ventricle: The right ventricle is mildly dilated. Right ventricular systolic function is mildly reduced. Atria: The left atrium is severely dilated. The right atrium is moderately dilated. There is no Doppler evidence for an interatrial shunt. Mitral Valve: There is mild mitral annular calcification. The mitral valve leaflets appear moderately thickened, but open well. There is severe mitral regurgitation. Aortic Valve: The aortic valve is trileaflet. The aortic valve is mildly calcified. The peak aortic velocity is 2.0 m/sec. The aortic valve mean gradient is 9 mmHg. There is mild aortic regurgitation. Tricuspid Valve: The tricuspid valve leaflets are thickened and/or calcified, but open well. There is moderate tricuspid regurgitation. The right ventricular systolic pressure is estimated to be at least 53 mmHg based on an estimated right atrial pressure of 15 mm Hg. Pulmonic Valve: The pulmonic valve is not well seen, but is grossly normal. There is mild pulmonic regurgitation. Great Vessels: The aortic root is normal size. The dimensions of the ascending aorta are normal. The IVC is dilated (diameter is greater than 2.1 cm) and it collapses less than 50% with a sniff. This suggests a high right atrial pressure of 15 mm Hg. Pericardium/ Pleura There is no pericardial effusion. There is no pleural effusion. MMode/2D Measurements & Calculations LVIDd: 6.5 cm LVOT diam: 2.1 cm LVIDs: 6.0 cm Ao root diam: 3.0 cm FS: 8.5 % asc Aorta Diam: 3.2 cm EPSS: 2.0 cm Ao Arch Diam (Prox Trans): 2.6 cm IVSd: 0.81 cm LVPWd: 0.66 cm LV justin. diameter/BSA (cm/m^2): 3.2 LV sys. diameter/BSA (cm/m^2): 3.0 LA A2 area: 33.0 cm2 RA long axis: 5.9 cm LA A4 area: 29.2 cm2 RA area: 24.7 cm2 LA length (vol): 7.0 cm RA vol: 88.1 ml LA vol: 116.1 ml RA : 43.6 ml/m2 LA vol index: 57.5 ml/m2 IVC diam: 2.1 cm RVD1 (basal): 3.9 cm RVD2 (mid): 3.6 cm TAPSE: 1.6 cm Doppler Measurements & Calculations Ao V2 max: 200.8 cm/sec LVOT Max Magnus: 66.0 cm/sec Ao V2 mean: 141.1 cm/sec LV V1 max P.8 mmHg Ao max P.3 mmHg LV V1 VTI: 12.2 cm Ao mean P.0 mmHg KEVIN(I,D): 1.2 cm2 Ao V2 VTI: 34.0 cm KEVIN(V,D): 1.1 cm2 sev ratio: 0.36 KEVIN indexed to BSA (cm^2/m^2): 0.61 AI P1/2t: 1003 msec AI dec slope: 98.5 cm/sec2 MV E max magnsu: 145.6 cm/sec TR max magnus: 310.0 cm/sec MV A max magnus: 2.0 cm/sec TR max P.4 mmHg MV E/A: 73.1 Med Peak E' Magnus: 5.5 cm/sec E/E' med: 26.7 Lat Peak E' Magnus: 6.1 cm/sec E/E' lat: 23.7 E/e' average: 25.2 MV dec time: 0.13 sec MR ERO: 0.27 cm2 MR PISA: 3.6 cm2 SV(LVOT): 42.0 ml MR flow rate: 130.9 cm3/sec MR PISA radius: 0.75 cm Reading Physician:12:33 PM
[2023-02-08 16:07] LABS: Magnesium 2.1 mg/dL (1.6-2.3)
[2023-02-08] MEDS: PANTOPRAZOLE 40 MG VIAL IV (17:04)
[2023-02-08] MEDS: HEPARIN 5,000 UNIT/ML VIAL 6900 UNIT IV (17:04)
[2023-02-08] MEDS: HEPARIN DRIP 25,000 UNIT/500 ML IV.SOLN 20 UNIT IV (17:28)
--- NOTE | 2023-02-08 18:23 | PC.NURSE ---
Addendum entered by Mario Brown R.N. 02/08/23 19:34: Patient moved to room 231 for transfer orders to ICU for cardizem gtt. Re oriented to room and call light and urinal placed within reach. Report given to BRAND INSPECTOR to assume care at this time. Original Note: Patient brought up from ER to room 220. Oriented to room and call light. Patient denies pain at this time, states he has been short of breath and unable to lay down for 10 days, unable to sleep very much because he can't lay down. Denies swelling or pain in his legs. Per ER nurse patient received heparin gtt bolus and to be maintained on heparin gtt per non cardiac protocol, infusing as ordered. Dr. Loyola notified of patient's arrival, she is currently at bedside with patient. call light and urinal within reach, continue to monitor.
--- NOTE | 2023-02-08 18:41 | P.HP_ITS ---
History of Present Illness History of Present Illness Date Patient Seen: 02/08/23 Time Patient Seen: 18:41 Date of Onset of Symptoms: 01/30/23 Chief complaint: shortness of breath Narrative: This is a very pleasant fairly healthy 87-year-old male who has seen Dr. Guillaume once in June of 2021. He has had little care from physicians. He apparently had a stroke in 2012 and was cared for by Dr. Mcclain. He was placed on aspirin. He had some word-finding difficulties and difficulties and articulation but otherwise really has no residual from this. When he was seen in June of [address] Guillaume started him on a statin but apparently he did not start this. He lives independently with his in his her caregiver as she has dementia. He lives here in [facility] and does all the work for his house. He is 4 adult sons who live in the area. His son and 1 of his [id number] was present at the time that I met with him and they helped with history. The patient has had approximately 10 day history of progressive worsening in shortness of breath including orthopnea to the point that it is progressively worsened any has not been able to lay in his bed and sleep. He actually says that on the day that he 1st noted shortness of breath it was the worst but then he would just get up and sit upright in his chair to sleep. He is not noticed significant edema in his lower extremities. He is not had any chest pain but does feel some chest tightness and possibly some palpitations. He is not had any lightheadedness or dizziness but has had progressively worsening dyspnea with exertion and was feeling so poorly this morning that he wanted to be seen in the emergency room. Past medical history: 2012 CVA Medications: 81 mg of aspirin a day Allergies: No known drug allergies Past surgical history: Unremarkable Family history: Dad at 60 from an acute [place] Mom at 96 No other known family history of arrhythmias or strokes or diabetes Health related behavior: Patient previously smoked but quit about 20 years ago Patient previously used alcohol but quit about 20 years ago Patient is very active Review of systems: Patient denies any chest pain. Patient denies any lightheadedness dizziness, syncope or presyncope Patient denies any changes in his bowel movements. Denies any constipation, bleeding, bright red blood per rectum, diarrhea Patient denies any fevers or chills Patient denies any headaches or chronic cough Patient denies any leg pain or signs or symptoms of claudication Otherwise 12 point review of systems is negative Patient has not been traveling or sedentary for long periods of time PFSH Social History household members: spouse Smoking Status: Former smoker alcohol intake: former Meds Home Medications and Allergies Home Medications Medication Instructions Recorded Confirmed Type aspirin 81 mg chewable tablet 81 mg PO QDAY ##0 08/13/12 02/08/23 History latanoprost 0.005 % eye drops 1 gtt OU HS ##0 08/13/12 02/08/23 History (Xalatan) Allergies Allergy/AdvReac Type Severity Reaction Status Date / Time No Known Drug Allergies Allergy Verified 02/08/23 11:23 Exam Vital Signs (past 8 hours): - 02/08/23 11:23 02/08/23 11:53 02/08/23 11:21 Temperature 98.2 F Pulse Rate 126 H 126 H Respiratory Rate 32 H 27 H Blood Pressure 151/85 H Pulse Oximetry 94 91 93 Oxygen Delivery Method Room Air Room Air Oxygen Flow Rate 02/08/23 11:30 02/08/23 11:30 02/08/23 11:45 Temperature Pulse Rate 127 H 127 H Respiratory Rate 32 H 34 H Blood Pressure 139/78 Pulse Oximetry 94 93 Oxygen Delivery Method Oxygen Flow Rate 02/08/23 12:00 02/08/23 12:02 02/08/23 12:02 Temperature Pulse Rate 124 H 122 H Respiratory Rate 14 30 H Blood Pressure 118/73 Pulse Oximetry 95 95 Oxygen Delivery Method Room Air Oxygen Flow Rate 02/08/23 12:15 02/08/23 12:15 02/08/23 12:30 Temperature Pulse Rate 107 H 113 H Respiratory Rate 29 H 29 H Blood Pressure 134/78 Pulse Oximetry 91 91 Oxygen Delivery Method Oxygen Flow Rate 02/08/23 12:31 02/08/23 12:31 02/08/23 12:45 Temperature Pulse Rate 113 H Respiratory Rate 30 H Blood Pressure 110/84 123/90 Pulse Oximetry 91 Oxygen Delivery Method Room Air Oxygen Flow Rate 02/08/23 12:45 02/08/23 13:00 02/08/23 13:07 Temperature Pulse Rate 116 H 117 H Respiratory Rate 25 H 27 H Blood Pressure 149/98 H Pulse Oximetry 92 Oxygen Delivery Method Oxygen Flow Rate 02/08/23 13:07 02/08/23 13:15 02/08/23 13:15 Temperature Pulse Rate 113 H 123 H Respiratory Rate 29 H 28 H Blood Pressure 139/92 H Pulse Oximetry 93 Oxygen Delivery Method Oxygen Flow Rate 02/08/23 13:30 02/08/23 13:30 02/08/23 13:45 Temperature Pulse Rate 119 H Respiratory Rate 29 H Blood Pressure 125/89 127/94 H Pulse Oximetry 93 Oxygen Delivery Method Oxygen Flow Rate 02/08/23 13:45 02/08/23 14:00 02/08/23 14:00 Temperature Pulse Rate 121 H 109 H Respiratory Rate 30 H 32 H Blood Pressure 155/125 H Pulse Oximetry 94 94 Oxygen Delivery Method Room Air Oxygen Flow Rate 02/08/23 14:08 02/08/23 14:08 02/08/23 14:15 Temperature Pulse Rate 122 H 118 H Respiratory Rate 30 H 30 H Blood Pressure 147/80 H Pulse Oximetry 93 94 Oxygen Delivery Method Oxygen Flow Rate 02/08/23 14:16 02/08/23 14:16 02/08/23 14:30 Temperature Pulse Rate 115 H 120 H Respiratory Rate 29 H 32 H Blood Pressure 151/83 H Pulse Oximetry 94 94 Oxygen Delivery Method Oxygen Flow Rate 02/08/23 14:43 02/08/23 14:43 02/08/23 14:45 Temperature Pulse Rate 124 H Respiratory Rate 31 H Blood Pressure 103/75 105/84 Pulse Oximetry 95 Oxygen Delivery Method Oxygen Flow Rate 02/08/23 14:45 02/08/23 15:00 02/08/23 15:00 Temperature Pulse Rate 126 H 125 H Respiratory Rate 29 H 27 H Blood Pressure 117/93 H Pulse Oximetry 94 91 Oxygen Delivery Method Oxygen Flow Rate 02/08/23 15:15 02/08/23 15:15 02/08/23 15:30 Temperature Pulse Rate 121 H Respiratory Rate 26 H Blood Pressure 129/103 H 145/116 H Pulse Oximetry 94 Oxygen Delivery Method Oxygen Flow Rate 02/08/23 15:30 02/08/23 15:45 02/08/23 15:45 Temperature Pulse Rate 124 H 110 H Respiratory Rate 32 H 29 H Blood Pressure 158/105 H Pulse Oximetry 93 93 Oxygen Delivery Method Room Air Oxygen Flow Rate 02/08/23 16:00 02/08/23 16:00 02/08/23 16:15 Temperature Pulse Rate 122 H 124 H Respiratory Rate 33 H 33 H Blood Pressure 155/91 H Pulse Oximetry 95 95 Oxygen Delivery Method Oxygen Flow Rate 02/08/23 16:30 02/08/23 17:15 02/08/23 18:16 Temperature 97.3 F L Pulse Rate 124 H 61 Respiratory Rate 30 H 24 Blood Pressure 150/75 H Pulse Oximetry 94 95 Oxygen Delivery Method Room Air Oxygen Flow Rate 0 Oxygen Delivery Method Room Air Oxygen Flow Rate 0 Narrative Exam Narrative: Patient is alert and oriented no apparent distress. Patient is resting comfortably without any tachypnea until I do have him perform neurologic testing and even with this exertion he becomes acutely short of breath. He is slight tachypnea and use of accessory muscles but no intercostal retraction or nasal flaring HEENT is otherwise unremarkable Neck: Supple without adenopathy or thyromegaly but he does have 1+ jugular veno us distention. No carotid bruit Cor: Irregularly irregular rhythm with a rate in the 120s with distant S1-S2 and no audible murmur at this time Chest: Patient with bibasilar crackles and decreased breath sounds right greater than left Abdomen: Positive bowel sounds, soft, nontender, nondistended Extremities show trace pitting edema pretibial. Pulses intact and feet are well-perfused Neurologic exam is nonfocal Cranial nerves 2-12 are grossly intact. Sensations intact to light touch Objective Labs 02/08/23 11:45 02/08/23 11:45 Labs: Laboratory Results - last 24 hr 02/08/23 02/08/23 02/08/23 11:45 11:45 11:45 WBC 7.4 RBC 4.92 Hgb 15.5 Hct 46.5 MCV 94.5 MCH 31.5 MCHC 33.3 RDW 14.1 Plt Count 197 Neut % (Auto) 68.4 Lymph % (Auto) 16.6 L [place] % (Auto) 9.7 Eos % (Auto) 4.6 H Baso % (Auto) 0.7 Neut # (Auto) 5100 Lymph # (Auto) 1200 [place] # (Auto) 700 Eos # (Auto) 300 Baso # (Auto) 100 PT 13.2 H INR 1.2 D-Dimer Sodium 140 Potassium 4.8 Chloride 104 Carbon Dioxide 25 BUN 33 H Creatinine 1.75 H Estimated GFR 38 L BUN/Creatinine Ratio 18.9 Glucose 128 H Lactate Calcium 8.9 Magnesium Total Bilirubin 1.1 AST 32 ALT 29 Alkaline Phosphatase 91 Troponin I 0.013 NT-Pro-B Natriuret Pep 91584 H Total Protein 7.6 Albumin 4.1 Globulin 3.5 Albumin/Globulin Ratio 1.2 Chlamy pneumoniae PCR Adenovirus (PCR) B. pertussis DNA (PCR) B.parapertussis DNA PCR Coronavirus OC43 (PCR) Coronavirus HKU1 (PCR) Coronavirus 229E (PCR) SARS-CoV-2 (PCR) Coronavirus NL63 (PCR) Human Metapneumovir PCR Influenza Type A (PCR) Influenza Type B (PCR) M. pneumoniae (PCR) Parainfluenza 1 (PCR) Parainfluenza 2 (PCR) Parainfluenza 3 (PCR) Parainfluenza 4 (PCR) RSV (PCR) Entero/Rhino (PCR) 02/08/23 02/08/23 02/08/23 11:45 11:45 12:06 WBC RBC Hgb Hct MCV MCH MCHC RDW Plt Count Neut % (Auto) Lymph % (Auto) [place] % (Auto) Eos % (Auto) Baso % (Auto) Neut # (Auto) Lymph # (Auto) [place] # (Auto) Eos # (Auto) Baso # (Auto) PT INR D-Dimer 971 H Sodium Potassium Chloride Carbon Dioxide BUN Creatinine Estimated GFR BUN/Creatinine Ratio Glucose Lactate 1.4 Calcium Magnesium Total Bilirubin AST ALT Alkaline Phosphatase Troponin I NT-Pro-B Natriuret Pep Total Protein Albumin Globulin Albumin/Globulin Ratio Chlamy pneumoniae PCR Not detected Adenovirus (PCR) Not detected B. pertussis DNA (PCR) Not detected B.parapertussis DNA PCR Not detected Coronavirus OC43 (PCR) Not detected Coronavirus HKU1 (PCR) Not detected Coronavirus 229E (PCR) Not detected SARS-CoV-2 (PCR) Not detected Coronavirus NL63 (PCR) Not detected Human Metapneumovir PCR Not detected Influenza Type A (PCR) Not detected Influenza Type B (PCR) Not detected M. pneumoniae (PCR) Not detected Parainfluenza 1 (PCR) Not detected Parainfluenza 2 (PCR) Not detected Parainfluenza 3 (PCR) Not detected Parainfluenza 4 (PCR) Not detected RSV (PCR) Not detected Entero/Rhino (PCR) Not detected 02/08/23 02/08/23 14:32 14:32 WBC RBC Hgb Hct MCV MCH MCHC RDW Plt Count Neut % (Auto) Lymph % (Auto) [place] % (Auto) Eos % (Auto) Baso % (Auto) Neut # (Auto) Lymph # (Auto) [place] # (Auto) Eos # (Auto) Baso # (Auto) PT INR D-Dimer Sodium Potassium Chloride Carbon Dioxide BUN Creatinine Estimated GFR BUN/Creatinine Ratio Glucose Lactate Calcium Magnesium 2.1 Total Bilirubin AST ALT Alkaline Phosphatase Troponin I 0.014 NT-Pro-B Natriuret Pep Total Protein Albumin Globulin Albumin/Globulin Ratio Chlamy pneumoniae PCR Adenovirus (PCR) B. pertussis DNA (PCR) B.parapertussis DNA PCR Coronavirus OC43 (PCR) Coronavirus HKU1 (PCR) Coronavirus 229E (PCR) SARS-CoV-2 (PCR) Coronavirus NL63 (PCR) Human Metapneumovir PCR Influenza Type A (PCR) Influenza Type B (PCR) M. pneumoniae (PCR) Parainfluenza 1 (PCR) Parainfluenza 2 (PCR) Parainfluenza 3 (PCR) Parainfluenza 4 (PCR) RSV (PCR) Entero/Rhino (PCR) Assessment & Plan Assessment & Plan narrative: 87-year-old fairly healthy gentleman with previous history of a stroke on a baby aspirin only presents to the ER with shortness of breath and found to have hypoxemia though not requiring oxygen at this time. Assessment 1. Hypoxemia suspect multifactorial. Suspect related to atrial fibrillation with RVR and pulmonary edema and possible pulmonary embolus Plan: Will go ahead and admit to the hospital to the ICU. At this point no evidence of infectious etiology Assessment 2. AFib with RVR Plan: Will go ahead and transfer patient to the ICU and place him on a diltiazem drip. Clearly do not want to put him on a beta-rory orally or calcium gomez eliza rory due to unknown reaction and concern for development of hypotension etc.. Would like to know what underlying heart structure is and worried beta- rory could exacerbate heart failure. We will do a diltiazem drip so that if needed we can turn this off quickly. We will get an echo in the morning. We will continue to do serial troponin and CKs. Thus far negative. We will continue with heparin for anticoagulation. Patient understands the side effects and the rationale for treatment Assessment 3. Pulmonary edema with concern for cardiomyopathy versus rate related due to atrial fibrillation with RVR Plan: Treat with diltiazem drip. Get an echo. 60 mg of Lasix was given in the ER and patient is feeling better. We will reassess in a.m. but if has worsening symptoms overnight will give more Lasix. Will do daily weights and strict I's and O's but will not put a catheter in this time. At this time will have him use a bedside urinal due to exertional dyspnea Assessment 4. Possible pulmonary embolus. CT scan unclear. Certainly could be timing of the scan. History is more supportive of AFib with RVR and pulmonary edema causing hypoxemia. Plan: Continue with IV heparin. Get echo. Repeat labs in the morning. Get bilateral lower extremity venous Doppler to rule out PE. Will consider repeating CT scan tomorrow versus doing a V/Q scan. Assessment 5. Acute exacerbation of chronic kidney disease suspected given previous readings. Plan: He received Lasix. Will reassess tomorrow. Assessment 6. GI prophylaxis especially given his age and giving him the heparin we will go ahead and place him on Protonix 40 mg IV Q 24 hours Assessment 7. Previous CVA without acute symptoms Plan: Will continue to follow Code status is full code. Lengthy discussion with patient with this in details and rationale and encouraged them to fill out a pulse form 75 minutes was spent with patient and discussing with physicians, reviewing his chart in the clinic as well as in the hospital and diagnostic workup as well as meeting with nursing and discussing with them and meeting with family inpatient and formulating a plan and documentation. Quality VTE Deep Vein Thrombosis/Pulmonary Embolism Present on Admission: No
[2023-02-08] MEDS: DILTIAZEM 125 MG/125 ML PIGGYBACK IV (19:15)
--- NOTE | 2023-02-08 21:11 | PC.NURSE ---
Addendum entered by Divya Wolf R.N. 02/09/23 06:19: Patient back into A-fib at 0400, rate <120, but restarted diltiazem gtt at 2mg/hr. No changes to heparin infusion, PTT 88 and 80 within target range. 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 A/Ox4, mild shortness of breath with activity in bed, able to converse with family. HR A-fib RVR 100-130s, multiple PVCs, denies chest pain, pressure, or palpitations. Diltiazem gtt started at 5mg/hr, Heparin gtt already infusing at 1000ubits/hr as ordered. Patient converted to SR, BBB at 2050, multi-focal PVCs continues.
[2023-02-08 21:51] LABS: MRSA (Nasal) PCR Not Detected (Not Detect)
[2023-02-08 22:49] LABS: Creatine Kinase 47 U/L (55-170)
[2023-02-08 22:50] LABS: PTT Partial Thromboplastin Tim 88 SECONDS (26-36)
[2023-02-08 23:01] LABS: Troponin I 0.029 ng/mL (0.01-0.034)
[2023-02-08 23:57] LABS: Thyroid Stimulating Hormone 4.25 uIU/mL (0.47-4.68)
[2023-02-09] VITALS (25 sets, daily range): BP systolic 98–155; BP diastolic 52–86; PULSE 70–99; RESP 17–34; TEMP 36.4–36.6; O2SAT 90–98
[2023-02-09 05:01] LABS: Add Manual Diff / Slide Review NO; Basophils Absolute Auto 100 /uL (0-100); Basophils Percent Auto 1.1 % (0-2); Eosinophils Absolute Auto 500 /uL (0-450); Eosinophils Percent Auto 6.3 % (2-4); Hematocrit 45.1 % (41-53); Hemoglobin 15.3 g/dL (13.5-17.5); Lymphocytes Absolute Auto 2000 /uL (1100-4500); Lymphocytes Percent Auto 27.2 % (25-40); Mean Corpuscular HGB Conc 33.8 % (30-36); Mean Corpuscular Hemoglobin 31.5 PG (26-34); Monocytes Absolute Auto 800 /uL (0-900); Monocytes Percent Auto 10.4 % (3-14); Neutrophils Absolute Auto 4100 /uL (1500-7000); Platelet Count 170 X10^3/uL (150-400); Red Blood Cell Count 4.85 X10^6/uL (4.5-5.9); Red Cell Distribution Width 14.2 % (11.6-14.8); White Blood Cell Count 7.5 X10^3/uL (4.5-11.0)
[2023-02-09 05:10] LABS: Alanine Aminotransferase 27 IU/L (<50); Albumin 3.9 g/dL (3.5-5.0); Albumin Globulin Ratio 1.2 (1.0-2.8); Alkaline Phosphatase 83 U/L (38-126); Aspartate Aminotransferase 25 IU/L (17-59); BUN Creatinine Ratio 18.5 (6-22); Bilirubin Total 1.4 mg/dL (0.2-1.3); Blood Urea Nitrogen 32 mg/dL (9-20); Calcium 8.8 mg/dL (8.4-10.2); Carbon Dioxide 22 mmol/L (22-32); Chloride 105 mmol/L (98-107); Estimated Glomerular Filt Rate 38 mL/min (>60); Globulin 3.2 g/dL (1.7-4.1); Glucose 96 mg/dL (80-110); HEMOLYSIS < 15 (0-50); PTT Partial Thromboplastin Tim 80 SECONDS (26-36); Potassium 4.2 mmol/L (3.4-5.1); Sodium 139 mmol/L (137-145); Total Protein 7.1 g/dL (6.3-8.2)
[2023-02-09 05:13] LABS: Magnesium 2.1 mg/dL (1.6-2.3)
[2023-02-09 05:18] LABS: NT-proBNP (BNP-Adult 18+) 10600 pg/mL (<450)
[2023-02-09] MEDS: SODIUM CHLORIDE 0.9% FLUSH 10 ML IV ×2 (08:10→21:00)
[2023-02-09] MEDS: PANTOPRAZOLE 40 MG VIAL IV (08:10)
--- NOTE | 2023-02-09 09:00 | DI.US.S_ITS ---
PROCEDURE: US PERIPH VENOUS LOW EXTREM BI INDICATIONS: PULMONARY EMBOLISM TECHNIQUE: Real-time imaging, as well as color and pulse Doppler interrogation, were performed of the deep veins of both legs from the inguinal ligament to the popliteal fossa. COMPARISON: None. FINDINGS: Right: The common femoral, femoral and popliteal veins are normally compressible, and free of intraluminal thrombus. Color and pulse Doppler demonstrate normal phasic intravascular flow. There is normal augmentation response to distal compression maneuver. Left: The common femoral, femoral and popliteal veins are normally compressible, and free of intraluminal thrombus. Color and pulse Doppler demonstrate normal phasic intravascular flow. There is normal augmentation response to distal compression maneuver. IMPRESSION: No deep venous thrombosis in the visualized lower extremity. Dictated by: Jonathan Uriarte M.D. on 02/09/2023 at 9:02 Approved by: Jonathan Uriarte M.D. on 02/09/2023 at 9:02
--- NOTE | 2023-02-09 10:50 | DI.NM.S_ITS ---
PROCEDURE: NM PUL VENT AND PERFUSION RADIOPHARMACEUTICAL: 35.5 mCi Tc-99m DTPA aerosol by inhalation and 10.9 mCi Tc-99m MAA intravenously. INDICATIONS: PE TECHNIQUE: Ventilation images were obtained first with Tc-99m DTPA aerosol. Subsequently, perfusion images were acquired after intravenous injection of Tc-99m MAA. Anterior, posterior, CAMPA, IVAN, RPO, LPO, left and right lateral views were obtained. COMPARISON: [facility], CT, CT ANGIO CHEST PE PROTOCOL, 02/08/2023, 14:37. FINDINGS: There is decreased perfusion seen involving the inferior aspect of the left lower lobe. There is decreased ventilation also seen at this site. IMPRESSION: There is a matched perfusion defect seen involving the inferior aspect of the left lower lobe. This patient has known bilateral pulmonary embolism seen on the CT dated 02/08/2023, which are not well seen on this VQ study. - When clinically appropriate, please consider a follow-up dedicated pulmonary embolism CT for further evaluation. Dictated by: Jaylan James M.D. on 02/10/2023 at 10:55 Approved by: Jaylan James M.D. on 02/10/2023 at 11:00
--- NOTE | 2023-02-09 11:11 | P.PN_ITS ---
Subjective Subjective Date Patient Seen: 02/09/23 Time Patient Seen: 11:11 Interval history: Patient had unremarkable night. He continues on the diltiazem drip. He would a brief period of sinus rhythm but is back in AFib. Feels his breathing is much better. He denies any chest pain. He is not been able to get out of bed. He tolerated p.o. without any difficulty 12 point review of systems is otherwise negative Exam Vital Signs (past 8 hours): - 02/09/23 04:00 02/09/23 04:00 02/09/23 04:00 Temperature 97.6 F Pulse Rate 96 H Respiratory Rate 34 H Blood Pressure 119/86 Pulse Oximetry 96 Oxygen Delivery Method Nasal Cannula Oxygen Flow Rate 3 02/09/23 05:00 02/09/23 05:00 02/09/23 06:00 Temperature Pulse Rate 83 Respiratory Rate 17 Blood Pressure 146/64 H 132/78 Pulse Oximetry 97 Oxygen Delivery Method Oxygen Flow Rate 3 02/09/23 06:00 02/09/23 07:00 02/09/23 07:00 Temperature Pulse Rate 87 90 Respiratory Rate 22 21 Blood Pressure 155/81 H Pulse Oximetry 97 98 Oxygen Delivery Method Oxygen Flow Rate 3 02/09/23 08:00 02/09/23 08:01 02/09/23 08:01 Temperature Pulse Rate 77 77 Respiratory Rate 20 17 Blood Pressure 109/55 L Pulse Oximetry 95 97 Oxygen Delivery Method Oxygen Flow Rate 02/09/23 08:33 02/09/23 08:00 02/09/23 09:00 Temperature 97.8 F Pulse Rate 90 Respiratory Rate 26 H Blood Pressure Pulse Oximetry 92 Oxygen Delivery Method Room Air Oxygen Flow Rate 02/09/23 09:01 02/09/23 09:01 02/09/23 10:00 Temperature Pulse Rate 99 H Respiratory Rate 25 H Blood Pressure 120/61 106/70 Pulse Oximetry 92 Oxygen Delivery Method Oxygen Flow Rate 02/09/23 10:00 02/09/23 08:00 Temperature Pulse Rate 82 Respiratory Rate 28 H Blood Pressure Pulse Oximetry 92 94 Oxygen Delivery Method Oxygen Flow Rate 0 Oxygen Delivery Method Room Air Oxygen Flow Rate 0 Narrative Exam Narrative: Patient is alert and oriented x3. Vital signs are stable except for blood pressures are in the low 100s HEENT unremarkable. Breathing is easier Neck: Supple without jugular venous distention Chest: Bibasilar crackles but improved air exchange. No wheezes or rhonchi Cor: Distant S1-S2, irregularly irregular rhythm Abdomen: Positive bowel sounds, soft, nontender, nondistended Extremities: No further edema, pulses intact Neurologic exam nonfocal Objective Labs 02/09/23 04:10 02/09/23 04:10 Labs: Laboratory Results - last 24 hr 02/08/23 02/08/23 02/08/23 11:45 11:45 11:45 WBC 7.4 RBC 4.92 Hgb 15.5 Hct 46.5 MCV 94.5 MCH 31.5 MCHC 33.3 RDW 14.1 Plt Count 197 Neut % (Auto) 68.4 Lymph % (Auto) 16.6 L [place] % (Auto) 9.7 Eos % (Auto) 4.6 H Baso % (Auto) 0.7 Neut # (Auto) 5100 Lymph # (Auto) 1200 [place] # (Auto) 700 Eos # (Auto) 300 Baso # (Auto) 100 PT 13.2 H INR 1.2 APTT D-Dimer Sodium 140 Potassium 4.8 Chloride 104 Carbon Dioxide 25 BUN 33 H Creatinine 1.75 H Estimated GFR 38 L BUN/Creatinine Ratio 18.9 Glucose 128 H Lactate Calcium 8.9 Magnesium Total Bilirubin 1.1 AST 32 ALT 29 Alkaline Phosphatase 91 Total Creatine Kinase CK-MB (CK-2) CK-MB (CK-2) Rel Index Troponin I 0.013 NT-Pro-B Natriuret Pep 12081 H Total Protein 7.6 Albumin 4.1 Globulin 3.5 Albumin/Globulin Ratio 1.2 TSH Nasal Screen MRSA (PCR) Chlamy pneumoniae PCR Adenovirus (PCR) B. pertussis DNA (PCR) B.parapertussis DNA PCR Coronavirus OC43 (PCR) Coronavirus HKU1 (PCR) Coronavirus 229E (PCR) SARS-CoV-2 (PCR) Coronavirus NL63 (PCR) Human Metapneumovir PCR Influenza Type A (PCR) Influenza Type B (PCR) M. pneumoniae (PCR) Parainfluenza 1 (PCR) Parainfluenza 2 (PCR) Parainfluenza 3 (PCR) Parainfluenza 4 (PCR) RSV (PCR) Entero/Rhino (PCR) 02/08/23 02/08/23 02/08/23 11:45 11:45 12:06 WBC RBC Hgb Hct MCV MCH MCHC RDW Plt Count Neut % (Auto) Lymph % (Auto) [place] % (Auto) Eos % (Auto) Baso % (Auto) Neut # (Auto) Lymph # (Auto) [place] # (Auto) Eos # (Auto) Baso # (Auto) PT INR APTT D-Dimer 971 H Sodium Potassium Chloride Carbon Dioxide BUN Creatinine Estimated GFR BUN/Creatinine Ratio Glucose Lactate 1.4 Calcium Magnesium Total Bilirubin AST ALT Alkaline Phosphatase Total Creatine Kinase CK-MB (CK-2) CK-MB (CK-2) Rel Index Troponin I NT-Pro-B Natriuret Pep Total Protein Albumin Globulin Albumin/Globulin Ratio TSH Nasal Screen MRSA (PCR) Chlamy pneumoniae PCR Not detected Adenovirus (PCR) Not detected B. pertussis DNA (PCR) Not detected B.parapertussis DNA PCR Not detected Coronavirus OC43 (PCR) Not detected Coronavirus HKU1 (PCR) Not detected Coronavirus 229E (PCR) Not detected SARS-CoV-2 (PCR) Not detected Coronavirus NL63 (PCR) Not detected Human Metapneumovir PCR Not detected Influenza Type A (PCR) Not detected Influenza Type B (PCR) Not detected M. pneumoniae (PCR) Not detected Parainfluenza 1 (PCR) Not detected Parainfluenza 2 (PCR) Not detected Parainfluenza 3 (PCR) Not detected Parainfluenza 4 (PCR) Not detected RSV (PCR) Not detected Entero/Rhino (PCR) Not detected 02/08/23 02/08/23 02/08/23 14:32 14:32 20:20 WBC RBC Hgb Hct MCV MCH MCHC RDW Plt Count Neut % (Auto) Lymph % (Auto) [place] % (Auto) Eos % (Auto) Baso % (Auto) Neut # (Auto) Lymph # (Auto) [place] # (Auto) Eos # (Auto) Baso # (Auto) PT INR APTT D-Dimer Sodium Potassium Chloride Carbon Dioxide BUN Creatinine Estimated GFR BUN/Creatinine Ratio Glucose Lactate Calcium Magnesium 2.1 Total Bilirubin AST ALT Alkaline Phosphatase Total Creatine Kinase CK-MB (CK-2) CK-MB (CK-2) Rel Index Troponin I 0.014 NT-Pro-B Natriuret Pep Total Protein Albumin Globulin Albumin/Globulin Ratio TSH Nasal Screen MRSA (PCR) Not detected Chlamy pneumoniae PCR Adenovirus (PCR) B. pertussis DNA (PCR) B.parapertussis DNA PCR Coronavirus OC43 (PCR) Coronavirus HKU1 (PCR) Coronavirus 229E (PCR) SARS-CoV-2 (PCR) Coronavirus NL63 (PCR) Human Metapneumovir PCR Influenza Type A (PCR) Influenza Type B (PCR) M. pneumoniae (PCR) Parainfluenza 1 (PCR) Parainfluenza 2 (PCR) Parainfluenza 3 (PCR) Parainfluenza 4 (PCR) RSV (PCR) Entero/Rhino (PCR) 02/08/23 02/08/23 02/08/23 22:30 22:30 22:30 WBC RBC Hgb Hct MCV MCH MCHC RDW Plt Count Neut % (Auto) Lymph % (Auto) [place] % (Auto) Eos % (Auto) Baso % (Auto) Neut # (Auto) Lymph # (Auto) [place] # (Auto) Eos # (Auto) Baso # (Auto) PT INR APTT 88 H* D-Dimer Sodium Potassium Chloride Carbon Dioxide BUN Creatinine Estimated GFR BUN/Creatinine Ratio Glucose Lactate Calcium Magnesium Total Bilirubin AST ALT Alkaline Phosphatase Total Creatine Kinase 47 L CK-MB (CK-2) TNP CK-MB (CK-2) Rel Index TNP Troponin I 0.029 NT-Pro-B Natriuret Pep Total Protein Albumin Globulin Albumin/Globulin Ratio TSH 4.25 Nasal Screen MRSA (PCR) Chlamy pneumoniae PCR Adenovirus (PCR) B. pertussis DNA (PCR) B.parapertussis DNA PCR Coronavirus OC43 (PCR) Coronavirus HKU1 (PCR) Coronavirus 229E (PCR) SARS-CoV-2 (PCR) Coronavirus NL63 (PCR) Human Metapneumovir PCR Influenza Type A (PCR) Influenza Type B (PCR) M. pneumoniae (PCR) Parainfluenza 1 (PCR) Parainfluenza 2 (PCR) Parainfluenza 3 (PCR) Parainfluenza 4 (PCR) RSV (PCR) Entero/Rhino (PCR) 02/09/23 02/09/23 02/09/23 04:10 04:10 04:10 WBC 7.5 RBC 4.85 Hgb 15.3 Hct 45.1 MCV 93.0 MCH 31.5 MCHC 33.8 RDW 14.2 Plt Count 170 Neut % (Auto) 55.0 Lymph % (Auto) 27.2 [place] % (Auto) 10.4 Eos % (Auto) 6.3 H Baso % (Auto) 1.1 Neut # (Auto) 4100 Lymph # (Auto) 2000 [place] # (Auto) 800 Eos # (Auto) 500 H Baso # (Auto) 100 PT INR APTT 80 H* D-Dimer Sodium 139 Potassium 4.2 Chloride 105 Carbon Dioxide 22 BUN 32 H Creatinine 1.73 H Estimated GFR 38 L BUN/Creatinine Ratio 18.5 Glucose 96 Lactate Calcium 8.8 Magnesium Total Bilirubin 1.4 H AST 25 ALT 27 Alkaline Phosphatase 83 Total Creatine Kinase CK-MB (CK-2) CK-MB (CK-2) Rel Index Troponin I NT-Pro-B Natriuret Pep Total Protein 7.1 Albumin 3.9 Globulin 3.2 Albumin/Globulin Ratio 1.2 TSH Nasal Screen MRSA (PCR) Chlamy pneumoniae PCR Adenovirus (PCR) B. pertussis DNA (PCR) B.parapertussis DNA PCR Coronavirus OC43 (PCR) Coronavirus HKU1 (PCR) Coronavirus 229E (PCR) SARS-CoV-2 (PCR) Coronavirus NL63 (PCR) Human Metapneumovir PCR Influenza Type A (PCR) Influenza Type B (PCR) M. pneumoniae (PCR) Parainfluenza 1 (PCR) Parainfluenza 2 (PCR) Parainfluenza 3 (PCR) Parainfluenza 4 (PCR) RSV (PCR) Entero/Rhino (PCR) 02/09/23 04:10 WBC RBC Hgb Hct MCV MCH MCHC RDW Plt Count Neut % (Auto) Lymph % (Auto) [place] % (Auto) Eos % (Auto) Baso % (Auto) Neut # (Auto) Lymph # (Auto) [place] # (Auto) Eos # (Auto) Baso # (Auto) PT INR APTT D-Dimer Sodium Potassium Chloride Carbon Dioxide BUN Creatinine Estimated GFR BUN/Creatinine Ratio Glucose Lactate Calcium Magnesium 2.1 Total Bilirubin AST ALT Alkaline Phosphatase Total Creatine Kinase CK-MB (CK-2) CK-MB (CK-2) Rel Index Troponin I NT-Pro-B Natriuret Pep 21812 H Total Protein Albumin Globulin Albumin/Globulin Ratio TSH Nasal Screen MRSA (PCR) Chlamy pneumoniae PCR Adenovirus (PCR) B. pertussis DNA (PCR) B.parapertussis DNA PCR Coronavirus OC43 (PCR) Coronavirus HKU1 (PCR) Coronavirus 229E (PCR) SARS-CoV-2 (PCR) Coronavirus NL63 (PCR) Human Metapneumovir PCR Influenza Type A (PCR) Influenza Type B (PCR) M. pneumoniae (PCR) Parainfluenza 1 (PCR) Parainfluenza 2 (PCR) Parainfluenza 3 (PCR) Parainfluenza 4 (PCR) RSV (PCR) Entero/Rhino (PCR) [facility] Social History household members: spouse Smoking Status: Former smoker alcohol intake: former Assessment & Plan Assessment & Plan narrative: Assessment & Plan narrative: 87-year-old fairly healthy gentleman with previous history of a stroke on a baby aspirin only presents to the ER with shortness of breath and found to have hy poxemia though not requiring oxygen at this time. Patient did require oxygen overnight as much as 3 L nasal cannula but currently he is on room air Assessment 1. Hypoxemia suspect multifactorial.? Suspect related to atrial fibrillation with RVR and pulmonary edema and possible pulmonary embolus Plan:? Patient is symptomatically improved. We will continue to support. Will ambulate and monitor oxygenation. Will continue to treat underlying causes of AFib with RVR, pulmonary edema and possible pulmonary embolus At this point no evidence of infectious etiology Assessment 2. AFib with RVR Plan: Patient is stable on diltiazem drip. He did have a brief period of converting to sinus rhythm and now is back in AFib with RVR. But controlled with diltiazem drip. We will go ahead and switch to oral diltiazem 30 mg q.6 hours scheduled. Will wean off diltiazem drip. Will allow him to ambulate and will monitor oxygen and heart rate. Echo is currently being done. CK and troponin x3 was negative. TSH was normal. Will continue with IV heparin and pending if he has a pulmonary embolus or not we will need to discuss anticoagulation for stroke prevention with the AFib. Assessment 3. Pulmonary edema with concern for cardiomyopathy versus rate related due to atrial fibrillation with RVR Plan: Clinically doing much better. Currently on room air. Echo is pending. Will give another 40 mg of Lasix. Will continue to monitor. Assessment 4. Possible pulmonary embolus.? CT scan unclear.? Certainly could be timing of the scan.? History is more supportive of AFib with RVR and pulmonary edema causing hypoxemia. Plan: Continue with IV heparin.? Discuss with Radiology and CT angio yesterday was inconclusive. Patient does have a GFR of 38 so I am reticent to give him more contrast with repeat CT scan today so I will proceed with a V/Q scan. Unfortunately they have to order the isotope and so we will not be able to do this till tomorrow. Echo is being done right now. Bilateral lower extremity Doppler was negative. Assessment 5.? Acute exacerbation of chronic kidney disease suspected given previous readings. Plan:? Cautious diuresis.? Will reassess tomorrow. Assessment 6. GI prophylaxis especially given his age and giving him the heparin we will go ahead and place him on Protonix 40 mg IV Q 24 hours Assessment 7. Previous CVA without acute symptoms Plan: Will continue to follow Code status is full code.? Lengthy discussion with patient with this in details and rationale and encouraged them to fill out a pulse form 55 minutes was spent with patient and discussing with physicians, reviewing his chart in the clinic as well as in the hospital and diagnostic workup as well as meeting with nursing and discussing with them and meeting with family inpatient and formulating a plan and documentation. Met today with his , Kym and his [id number] who recorded my plan of care Quality VTE Deep Vein Thrombosis/Pulmonary Embolism Present on Admission: No
[2023-02-09 11:12] LABS: PTT Partial Thromboplastin Tim 75 SECONDS (26-36)
[2023-02-09] MEDS: dilTIAZem 30 MG TABLET PO ×2 (11:53→17:14)
[2023-02-09] MEDS: FUROSEMIDE 40 MG/4 ML VIAL IV (11:53)
--- NOTE | 2023-02-09 13:57 | CM.DANOTE ---
DCP: Patient is a 87yo M here for shortness of breath and unspecified afib. Payer: Human Medicare and self pay PCP: Dr. 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 Per nursing, patient independent in rooms. SOCIOLOGY INSTRUCTOR team entered room and introduced self and roles. Patient was A/Ox4, sitting up in his chair, and reported being eager to go home. 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 Patient reports Kym is staying with daughter in law for the time while patient is in the hospital. Patient reports he is independent at baseline and cares for himself and . Patient has dentures but rarely uses them at this time. Patient drives and manages most of his needs at home, besides the lawn care that his grandchild assist him with. He has four adult sons, three that live in the area that help him and his if needed. Grand daughter is going to pick him up and drive him home when d/c'ed. LESLIE Balderas provided patient with [employer] booklet for more information regarding hiring care givers to help care for him and spouse at home. LESLIE Balderas answered questions regarding pricing, timing, and other logistical concerns patient had in hiring care givers. Patient reported that he had to use the restroom and couldn't find his call light. SOCIOLOGY INSTRUCTOR team alerted nurse and assisted him in finding his call light button. Plan: home with family when medically stable. transport with grand daughter. Patient and family will inquire into hiring care givers to help patient care give for spouse. CM team to continue to follow. LESLIE Atwood Discharge Planning/Care Management Advanced directive, confirm from FAMILY Start: 02/08/23 17:40 Freq: Q24H Status: Complete Protocol: Document 02/08/23 17:54 CLP (Rec: 02/08/23 17:55 CLP [id number]) Advance Directive, confirm on record Time 17:54 Person contacted pat (son) Copy received No Document 02/09/23 08:31 PARDEEP (Rec: 02/09/23 08:31 PARDEEP [id number]) Advance Directive, confirm on record Time 17:54 Person contacted pat (son) Copy received No Time 08:31 Person contacted pt Copy received No CM Discharge Assessment Start: 02/09/23 13:53 Freq: Status: Active Protocol: Document 02/09/23 13:53 SL (Rec: 02/09/23 13:57 SL [id number]) Discharge Planning Assessment Assigned Assistant Refinery Operator LESLIE Atwood DPOA/Assigned Designee Name Kym Arevalo () Contact Information [phone] Advance Directives? Yes Advance Directives on File No: pt has, family instructed to bring. full code. History Provided By Patient,Medical Record Prior Living Arrangements House Household Members spouse Comment three sons live in area and help with care along with grandchildren. additional emergency contact is Tiffanie Arevalo (daughter in law. ) Type of transporation used prior to Drives own vehicle admit Independent with ADL's Yes Is patient alert and oriented? 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 # of Assistant Refinery Operator Review Status In Process Next Review Type Continued Stay Review
[2023-02-09] MEDS: HEPARIN DRIP 25,000 UNIT/500 ML IV.SOLN 20 UNIT IV (18:24)
[2023-02-10] VITALS (11 sets, daily range): BP systolic 106–130; BP diastolic 56–89; PULSE 62–98; RESP 18–27; TEMP 36.2–36.6; O2SAT 85–96
[2023-02-10 04:55] LABS: Add Manual Diff / Slide Review NO; Basophils Absolute Auto 100 /uL (0-100); Basophils Percent Auto 1.3 % (0-2); Eosinophils Absolute Auto 600 /uL (0-450); Eosinophils Percent Auto 7.3 % (2-4); Hematocrit 44.5 % (41-53); Hemoglobin 15.1 g/dL (13.5-17.5); Lymphocytes Absolute Auto 1600 /uL (1100-4500); Lymphocytes Percent Auto 21.9 % (25-40); Mean Corpuscular HGB Conc 33.9 % (30-36); Mean Corpuscular Hemoglobin 31.4 PG (26-34); Mean Corpuscular Volume 92.8 fL (80-100); Monocytes Absolute Auto 800 /uL (0-900); Monocytes Percent Auto 10.9 % (3-14); Neutrophils Absolute Auto 4400 /uL (1500-7000); Neutrophils Percent Auto 58.6 % (50-75); Platelet Count 158 X10^3/uL (150-400); Red Cell Distribution Width 14.3 % (11.6-14.8); White Blood Cell Count 7.5 X10^3/uL (4.5-11.0)
[2023-02-10 05:05] LABS: Alanine Aminotransferase 36 IU/L (<50); Albumin 3.8 g/dL (3.5-5.0); Albumin Globulin Ratio 1.2 (1.0-2.8); Alkaline Phosphatase 87 U/L (38-126); Aspartate Aminotransferase 36 IU/L (17-59); BUN Creatinine Ratio 21.8 (6-22); Bilirubin Total 1.3 mg/dL (0.2-1.3); Blood Urea Nitrogen 38 mg/dL (9-20); Calcium 8.8 mg/dL (8.4-10.2); Carbon Dioxide 25 mmol/L (22-32); Chloride 101 mmol/L (98-107); Estimated Glomerular Filt Rate 38 mL/min (>60); Globulin 3.3 g/dL (1.7-4.1); Glucose 97 mg/dL (80-110); HEMOLYSIS < 15 (0-50); Sodium 135 mmol/L (137-145); Total Protein 7.1 g/dL (6.3-8.2)
[2023-02-10 05:25] LABS: NT-proBNP (BNP-Adult 18+) 5200 pg/mL (<450)
[2023-02-10] MEDS: dilTIAZem 30 MG TABLET PO ×2 (06:22)
--- NOTE | 2023-02-10 06:31 | PC.NURSE ---
Pt became hypoxic into the mid 80% several times during the night when sleeping with RA O2 sat checks. Unable to titrate him down. Pt is open to using home oxygen when sleeping if ordered. 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 The oxygen sats are documented in the vitals flowsheet.
[2023-02-10 08:36] LABS: PTT Partial Thromboplastin Tim 108 SECONDS (26-36)
--- NOTE | 2023-02-10 09:31 | PM.PN.1 ---
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 Exam Vital Signs (past 8 hours): - 02/10/23 02:00 02/10/23 02:00 02/10/23 04:00 Temperature Pulse Rate 75 Respiratory Rate 18 Blood Pressure 113/64 109/58 L Pulse Oximetry 95 Oxygen Delivery Method Oxygen Flow Rate 2 02/10/23 04:00 02/10/23 06:00 02/10/23 06:01 Temperature 97.2 F L Pulse Rate 81 97 H Respiratory Rate 24 19 Blood Pressure 130/71 Pulse Oximetry 91 93 Oxygen Delivery Method Oxygen Flow Rate 2 02/10/23 06:01 02/10/23 04:00 02/10/23 06:22 Temperature Pulse Rate 85 88 Respiratory Rate 24 Blood Pressure Pulse Oximetry 94 Oxygen Delivery Method Nasal Cannula Oxygen Flow Rate 2 02/10/23 08:09 02/10/23 08:04 02/10/23 08:00 Temperature Pulse Rate Respiratory Rate Blood Pressure 116/72 Pulse Oximetry Oxygen Delivery Method Room Air Room Air Oxygen Flow Rate 02/10/23 08:00 02/10/23 08:00 Temperature 97.5 F L Pulse Rate 98 H Respiratory Rate 23 Blood Pressure Pulse Oximetry Oxygen Delivery Method Oxygen Flow Rate Oxygen Delivery Method Room Air Oxygen Flow Rate 2 Narrative Exam Narrative: cheerful alert elder sitting up in bed conversing with nurse Const General: cooperative and comfortable Nutritional Appearance: well nourished HENMI Head: normocephalic and atraumatic Resp Other: moving air well, mild bibasilar crackles doing ok on RA able to speak in complete sentences Cardio Other: regular rate, regular rhythm with some dropped beats 1/2+ pedal edema GI Other: soft nontender active bowel sounds Neuro General: patient alert, patient awake and patient oriented x3 Psych Mental Status: mental status grossly normal Speech and Movement: speech and movement normal Objective Labs 02/10/23 04:07 02/10/23 04:07 Labs: Laboratory Results - last 24 hr 02/09/23 02/10/23 02/10/23 10:52 04:07 04:07 WBC 7.5 RBC 4.80 Hgb 15.1 Hct 44.5 MCV 92.8 MCH 31.4 MCHC 33.9 RDW 14.3 Plt Count 158 Neut % (Auto) 58.6 Lymph % (Auto) 21.9 L [place] % (Auto) 10.9 Eos % (Auto) 7.3 H Baso % (Auto) 1.3 Neut # (Auto) 4400 Lymph # (Auto) 1600 [place] # (Auto) 800 Eos # (Auto) 600 H Baso # (Auto) 100 APTT 75 H* Sodium Potassium Chloride Carbon Dioxide BUN Creatinine Estimated GFR BUN/Creatinine Ratio Glucose Calcium Total Bilirubin AST ALT Alkaline Phosphatase NT-Pro-B Natriuret Pep 5200 H Total Protein Albumin Globulin Albumin/Globulin Ratio 02/10/23 02/10/23 04:07 07:43 WBC RBC Hgb Hct MCV MCH MCHC RDW Plt Count Neut % (Auto) Lymph % (Auto) [place] % (Auto) Eos % (Auto) Baso % (Auto) Neut # (Auto) Lymph # (Auto) [place] # (Auto) Eos # (Auto) Baso # (Auto) APTT 108 H* D Sodium 135 L Potassium 4.0 Chloride 101 Carbon Dioxide 25 BUN 38 H Creatinine 1.74 H Estimated GFR 38 L BUN/Creatinine Ratio 21.8 Glucose 97 Calcium 8.8 Total Bilirubin 1.3 AST 36 ALT 36 Alkaline Phosphatase 87 NT-Pro-B Natriuret Pep Total Protein 7.1 Albumin 3.8 Globulin 3.3 Albumin/Globulin Ratio 1.2 PFSH Social History household members: spouse Smoking Status: Former smoker alcohol intake: former Assessment & Plan Assessment & Plan narrative: 87-year-old fairly healthy gentleman with previous history of a stroke on a baby aspirin only presents to the ER with shortness of breath and found to have hypoxemia though not requiring oxygen at this time.? He is needing 1-3L via NC at night to sleep but is on RA while awake. #systolic congestive heart failure, acute on chronic, present on admission new finding of EF ~20% on echo yesterday which certainly explains some of this symptomatology etiology unclear likely multifactorial denies prior heart failure issues good response to diruesis, likely some element of diastolic sydfunction present also, will continue diuresis today given crackles on auscultation #Hypoxemia suspect multifactorial.? Suspect related to atrial fibrillation with RVR and pulmonary edema and possible pulmonary embolus Patient is symptomatically improved.? We will continue to support.? Will ambulate and monitor oxygenation.? Will continue to treat underlying causes of AFib with RVR, pulmonary edema and possible pulmonary embolus At this point no evidence of infectious etiology #hx of aFib with RVR Rate doing well, converting today from drip to orals 60mg dilt q12.? Will allow him to ambulate and will monitor oxygen and heart rate.? CK and troponin x3 was negative.? TSH was normal.? Will continue with IV heparin and pending V/Q depending if he has a pulmonary embolus or not we will need to discuss anticoagulation for stroke prevention with the AFib. #Pulmonary edema likely 2/2 CHF Clinically doing much better.? Currently on room air.? BNP improving. Will give another 40 mg of Lasix and continue to monitor. #Possible pulmonary embolus.? continue heparin until V/Q scan. ? Bilateral lower extremity Doppler was negative. #Acute exacerbation of chronic kidney disease suspected given previous readings. stable Cr with cautious diuresis. #GI prophylaxis considering we are giving him the heparin continue Protonix 40 mg IV Q 24 hours #Previous CVA without acute symptoms hx note, continue home meds dispo: still needing cardiac monitoring, will need cardiac rehab on d/c, plans are pending V/Q scan today Code status: full PCP: [facility] MDM: Kym Quality VTE Deep Vein Thrombosis/Pulmonary Embolism Present on Admission: No
[2023-02-10] MEDS: FUROSEMIDE 40 MG/4 ML VIAL IV (10:47)
[2023-02-10] MEDS: dilTIAZem SR 60 MG PO (10:47)
[2023-02-10] MEDS: PANTOPRAZOLE 40 MG VIAL IV (10:47)
[2023-02-10] MEDS: SODIUM CHLORIDE 0.9% FLUSH 10 ML IV (10:47)
--- NOTE | 2023-02-10 11:35 | PT.IIE ---
Current Diagnoses Unspecified atrial fibrillation (02/08/23) Physical Therapy Inpatient Evaluation/Re-Eval M1 PT/OT-IP Prior Functional Status Start: 02/10/23 09:18 Freq: NEEDED Status: Active Protocol: Document 02/10/23 11:35 AB (Rec: 02/10/23 13:49 AB [id number]) Medical Review Prior Functional Status Medical History Reviewed Yes Communication able to make needs known Mobility and Gait pt stated that he is independent with all mobilities and ambulation without AD Social History Household Members spouse Living Arrangements House Number of Floors (Floors) One Floor Number of Stairs To Enter/Railing? 2 steps without rails to enter the house Home Environment High Toilet,Tub/Shower Home Equipment Straight Cane,Shower Seat without Backrest,Grab Bars In Shower Additional Social History Comment pt's son/ALEM lives close by and DIL stated that she usually checks on them daily and brings them meals M2 PT-IP Current Condition Start: 02/10/23 09:18 Freq: NEEDED Status: Active Protocol: Document 02/10/23 11:35 AB (Rec: 02/10/23 13:49 AB [email or web address]) Physical Therapy Current Condition Current Condition Evaluation Date 02/10/23 Treatment Diagnosis CHF; PE; difficulty in walking Onset Date 02/08/23 M3 PT-IP Subjective Start: 02/10/23 09:18 Freq: NEEDED Status: Active Protocol: Document 02/10/23 11:35 AB (Rec: 02/10/23 13:49 AB [email or web address]) Subjective Physical Therapy Visit Type Type Initial Evaluation Visit Start Time 11:35 Visit Stop Time 12:05 Total Visit Minutes 30 Number of FIELD WORKER Visits 0 Physical Therapy Visit Comments Patient Comments agreeable to do PT; wants to go home M4 PT-IP Mobility and Gait Start: 02/10/23 09:18 Freq: NEEDED Status: Active Protocol: Document 02/10/23 11:35 AB (Rec: 02/10/23 13:49 AB [email or web address]) PT-Bed Mobility Assessment Supine to Sit Supine to Sit Independent Sit to Supine Sit to Supine Independent PT-Transfer Assessment Sit to and From Stand Sit to and from Stand Standby Assistance Equipment Transfer Assistive Device Gait Belt Orthotic/Prosthetic Devices or Brace: No Transfers Transfer Destination Toilet Transfer Technique ambulated Transfer Ability Level of Assist Standby Assistance,1 Person Assistance,Use of Upper Extremities Comments Mobility Comments pt sitting on the chair and wanting to use the toilet. O2 sat at RA 95%. completed sit to stand SBA and ambulated to the toilet without AD SBA. slightly unsteady gait but without LOB. able to stand SBA while using the toilet. ambulated to the sink without AD SBA and completed handwashing SBA. pt ambulated back to chair without AD SBA. (+) SOB. O2 sat: 90-93%. pt rested. sit to stand from chair SBA and demonstrated bed mobility mod I. pt completed up/down step stool CGA and cues. pt educated on stability and techniques for stair climbing. completed again x 2 SBA. pt sat back on chair. call light and table placed within reach . spouse and daughter in law in room with pt . family stated that they are going to be able to assist pt at home. Gait Assessment Gait Gait Assistance Required: Standby Assistance Distance (Feet) 30 Able to Maintain Weight Bearing Status Yes During Gait Assistive Devices Assistive Device None,Gait Belt Orthotic/Prosthetic Devices or Brace: No Gait Deviations General Gait Pattern Decreased Stride Length, Decreased Feet Clearance,Step- to Gait,Wide Based Gait Factors Limiting Gait Function Factors Limiting Gait Function Decreased Activity Tolerance, Decreased Strength,Poor Balance,Poor Safety Awareness, Respiratory Distress Stair Climbing Assessment Evaluation Level of Assist On Stairs Contact Guard Assistance,1 Person Assistance Technique/Endurance Stair Climbing Direction Ascend and Descend Stair Climbing Technique Step to Step Number of Steps Climbed 1 Query Text: Stair Climbing Set # Repetitions (reps) 3 PT-Balance Assessment Sitting Balance and Reactions Static Sitting Balance Ability Normal Dynamic Sitting Balance Ability Normal Standing Balance and Reactions Static Standing Balance Ability Good Dynamic Standing Balance Ability Fair Device Used FWW M5 PT-IP Objective Assessments Start: 02/10/23 09:18 Freq: NEEDED Status: Active Protocol: Document 02/10/23 11:35 AB (Rec: 02/10/23 13:49 AB [id number]) Orientation Orientation/Cognition Level of Alertness Alert Orientation Name,Place,Situation Language Function Ability Hard of Hearing Safety Awareness Decreased Safety Awareness Memory Description No Deficits Noted Gross Range of Motion Lower Extremity ROM Assessment Within Functional Limits Strength Lower Extremity Strength Hip 4-/5 Knee 4-/5 Coordination Assessment Gross Coordination Gross Coordination WNL Muscle Tone Muscle Tone WNL Yes M6 PT-IP Treatment Start: 02/10/23 09:18 Freq: NEEDED Status: Active Protocol: Document 02/10/23 11:35 AB (Rec: 02/10/23 13:49 AB [id number]) Physical Therapy Treatment Education Education Provided Safety M7 PT-IP Assessment and Plan Start: 02/10/23 09:18 Freq: NEEDED Status: Active Protocol: Document 02/10/23 11:35 AB (Rec: 02/10/23 13:49 AB [email or web address]) PT Summary Assessment and Plan Potential Rehabilitation Potential Good Status of Condition at Evaluation Stable Summary Impairments Strength,Balance,Cognition,Bed Mobility,Transfers,Gait, Activity Tolerance Assessment Summary pt requiring SBA to CGA with mobility without AD. (+) SOB with activities but O2 sat at 90-95% at RA. pt will have family at home to assist hime. pt may go home when medically stable. Goals Transfer Goal Independent Gait Goal Independent Gait Distance 150 Other Goals up/down 2 steps without AD mod I Days to Meet Goals 5 Frequency of Treatment Frequency Of Treatment Once a Day Treatment Plan Physical Therapy Treatment Plan Bed Mobility Training,Transfer Training,Gait Training, Therapeutic Exercise,Balance Retraining,Discharge Planning, Hot or Cold Pack,Neuromuscular Re-ed,Coordination Retraining Precautions Other Precautions O2 sat Recommendations To Nursing Amount of Assist Needed Standby Assistance Discharge Recommendations PT Discharge Recommendations Home with Assistance,Home Health Transportation Needs at Discharge Private Vehicle
--- NOTE | 2023-02-10 13:05 | P.DS_ITS ---
History of Present Illness History of Present Illness Date Patient Seen: 02/10/23 Time Patient Seen: 13:05 Chief complaint: shortness of breath Narrative: chief complaint: fatigue, shortness of breath VQ scan shows same issue noted on CT suggestive of an active PE - symptomatically doing well on heparin feels like he can go home - lots of family support - discussed need for cardiac rehab in outpatient setting to recover systolic function if possible. heart rate stable on diltiazem oral. Discharge Providers Provider Date of admission: 02/08/23 16:02 Discharge Date: 02/10/23 Primary care physician: Beny Kang MD Consults: 02/08/23 18:38 Consult to ENGLISH [employer]Y - Research Microbiologist Routine Comment: 02/10/23 08:44 Consult to Occupational Therapy Evaluate & Treat Comment: Physician Instructions: Evaluate and treat Consult to Physical Therapy Evaluate & Treat Comment: Physician Instructions: Evaluate and Treat Discharge provider: Beny Kang MD Summary Hospital Course Discharge Diagnosis: #systolic congestive heart failure, acute on chronic, present on admission #Hypoxemia #hx of aFib with RVR #Pulmonary edema #Pulmonary embolus? #Acute exacerbation of chronic kidney disease #GI prophylaxis #hx of CVA Hospital Course: Mr Arevalo was admitted with extreme fatigue and hypoxemia and was found to have systolic CHF with EF 20% as well as a VQ confirmed PE as well as afib/RVR. He was treated with a diltiazem drip which he converted on and then continued on oral diltiazem. He was heparinized with a heparin drip and converted to oral eliquis at full PE treatment dose. He will get set up for cardiopulmonary rehab in outpatient setting. By DOD he was eating ambulating taking oral meds only doing well. Status at Discharge Cognitive/behavioral status at discharge: at baseline, oriented Functional status at discharge: independent ambulation Overall status at discharge: patient is progressing back to baseline Exam Vital Signs (past 8 hours): - 02/10/23 06:00 02/10/23 06:01 02/10/23 06:01 Temperature Pulse Rate 97 H 85 Respiratory Rate 19 24 Blood Pressure 130/71 Pulse Oximetry 93 94 Oxygen Delivery Method Oxygen Flow Rate 2 02/10/23 06:22 02/10/23 08:09 02/10/23 08:04 Temperature Pulse Rate 88 Respiratory Rate Blood Pressure Pulse Oximetry Oxygen Delivery Method Room Air Room Air Oxygen Flow Rate 02/10/23 08:00 02/10/23 08:00 02/10/23 08:00 Temperature 97.5 F L Pulse Rate 98 H Respiratory Rate 23 Blood Pressure 116/72 Pulse Oximetry Oxygen Delivery Method Oxygen Flow Rate 02/10/23 11:04 Temperature 97.6 F Pulse Rate 98 H Respiratory Rate 27 H Blood Pressure 106/56 L Pulse Oximetry 95 Oxygen Delivery Method Oxygen Flow Rate Oxygen Delivery Method Room Air Oxygen Flow Rate 2 Narrative Exam Narrative: cheerful elder laying in bed with family at bedside Const General: cooperative, healthy appearing, comfortable and well developed [facility] Head: normocephalic and atraumatic Resp Other: clear to auscultation bilaterally Cardio Other: regular rate, regular rhythm with skipped beats, S1/S2 GI Other: soft nontender nondistended Extrem Other: 1/0+ pedal edema bilateally Objective Labs 02/10/23 04:07 02/10/23 04:07 Labs: Laboratory Results - last 24 hr 02/10/23 02/10/23 02/10/23 04:07 04:07 04:07 WBC 7.5 RBC 4.80 Hgb 15.1 Hct 44.5 MCV 92.8 MCH 31.4 MCHC 33.9 RDW 14.3 Plt Count 158 Neut % (Auto) 58.6 Lymph % (Auto) 21.[address] [place] % (Auto) 10.9 Eos % (Auto) 7.3 H Baso % (Auto) 1.3 Neut # (Auto) 4400 Lymph # (Auto) 1600 [place] # (Auto) 800 Eos # (Auto) 600 H Baso # (Auto) 100 APTT Sodium 135 L Potassium 4.0 Chloride 101 Carbon Dioxide 25 BUN 38 H Creatinine 1.74 H Estimated GFR 38 L BUN/Creatinine Ratio 21.8 Glucose 97 Calcium 8.8 Total Bilirubin 1.3 AST 36 ALT 36 Alkaline Phosphatase 87 NT-Pro-B Natriuret Pep 5200 H Total Protein 7.1 Albumin 3.8 Globulin 3.3 Albumin/Globulin Ratio 1.2 02/10/23 07:43 WBC RBC Hgb Hct MCV MCH MCHC RDW Plt Count Neut % (Auto) Lymph % (Auto) [place] % (Auto) Eos % (Auto) Baso % (Auto) Neut # (Auto) Lymph # (Auto) [place] # (Auto) Eos # (Auto) Baso # (Auto) APTT 108 H* D Sodium Potassium Chloride Carbon Dioxide BUN Creatinine Estimated GFR BUN/Creatinine Ratio Glucose Calcium Total Bilirubin AST ALT Alkaline Phosphatase NT-Pro-B Natriuret Pep Total Protein Albumin Globulin Albumin/Globulin Ratio PFSH Social History household members: spouse Smoking Status: Former smoker alcohol intake: former Discharge Assessment & Plan Assessment and Plan Assessment: 87-year-old fairly healthy gentleman with previous history of a stroke on a baby aspirin only presents to the ER with shortness of breath and found to have hypoxemia though not requiring oxygen at this time.? #systolic congestive heart failure, acute on chronic, present on admission new finding of EF ~20% on echo yesterday which certainly explains some of this symptomatology etiology unclear likely multifactorial denies prior heart failure issues likely some element of diastolic dysfunction present also, responded well to some minimal diuresis, will f/u outpatient #Hypoxemia suspect multifactorial.? Suspect related to atrial fibrillation with RVR and pulmonary edema and pulmonary embolus which are all improving as is his breathing Patient is symptomatically improved, VSS today, will f/u as outpatient. Consider sleep apnea workup. #hx of aFib with RVR s/p conversion on drip, rate doing well, continue oral 60mg dilt q12.? CK and troponin x3 was negative.? TSH was normal.? Will need AC regardless of VQ #Pulmonary edema likely 2/2 CHF Clinically doing much better.? Currently on room air.? BNP improving. Will reevaluate at f/u and see if he needs oral loops. #Pulmonary embolus.? V/Q scan today confirms PE c/w CT findings. ? Bilateral lower extremity Doppler was negative. will initiate eliquis at full treatment dose - start eliquis 10mg then turn of heparin drip 2 hours later, then ok to dc #Acute exacerbation of chronic kidney disease suspected given previous readings. stable Cr with cautious diuresis. #GI prophylaxis considering we are giving him the heparin continue Protonix 40 mg IV Q 24 hours #Previous CVA without acute symptoms hx note, continue home meds dispo: s/p VQ scan will dc on treatment eliquis kit - updated prescription sent to pharmacy via outpt EMR Code status: full PCP: Pearl MDM: Radha Mejía time spent: more than 30 min Discharge Plan Discharge Plan Patient Disposition: Home Health Service Provider Discharge Comment: eliquis discharge plan is 10mg bid for 7 days then finish out the month at 5mg bid for treatment dose - no renal reduction Discharge orders & Medications Prescriptions: New diltiazem HCl 60 mg Capsule,Extended Release 12 Hr 60 mg PO BID Qty: 60 0RF Eliquis 5 mg tablet 5 mg PO BID Qty: 60 0RF Continued latanoprost [Xalatan] 0.005 % drops 1 gtt OU HS Qty: 0 aspirin 81 MG tablet,chewable 81 mg PO QDAY Qty: 0 Follow up/Referrals: Beny Kang MD [Primary Care Provider] - 02/18/23 3:15 pm (APPT:02/18 @ 3:[address] Kang ) Diet/Activity/Treatments Diet: Diet as Tolerated Visit Report/Discharge Packet Instructions: DI for Heart Failure, DI for Atrial Fibrillation, Diltiazem, Apixaban Stand Alone Forms: Congestive Heart Failure, Patient Portal/API, Stroke Signs & Symptoms Discharge Data Primary Care Provider: Beny Kang Discharges patient from system. Discharge Date/Time: 02/10/23 16:21 Quality VTE Deep Vein Thrombosis/Pulmonary Embolism Present on Admission: No
--- NOTE | 2023-02-10 13:13 | CM.DPNOTE ---
DC Note Discharge home today w/family to assist and close outpatient follow up with PCP and at Cardiac Pulmonary [facility] No addtl needs from this CM team JW
[2023-02-10] MEDS: APIXABAN 5 MG TABLET 10 MG PO (13:49)
--- NOTE | 2023-02-10 14:07 | OT.IPNOTE ---
Pt being discharged home with his family to assist and states has no OT needs. Able to give pt information for energy conservation, no charge.
== END 2023-02-10 16:21 | disposition home or self-care (01) | DRG 175 ==
LOC: ED 15:55 → AC 16:03 → ICU 16:44 → AC 16:51 → ICU 19:00
PROVIDERS: Admitting Provider Family Medicine; Emergency Provider Emergency Medicine; PCP Family Medicine; Referring Provider Emergency Medicine; Visit Provider Family Medicine
DX: I26.99 Other pulmonary embolism without acute cor pulmonale (principal); I50.23 Acute on chronic systolic (congestive) heart failure; I48.91 Unspecified atrial fibrillation; R09.02 Hypoxemia; N18.9 Chronic kidney disease, unspecified; Z20.822 Contact with and (suspected) exposure to COVID-19; Z86.73 Personal history of transient ischemic attack (TIA), and cerebral infarction without residual deficits
CPT/HCPCS: 36415; 71045; 71275; 78582; 80053; 82550; 83605; 83735; 83880; 84443; 84484; 85025; 85379; 85610; 85730; 87633; 87797; 93005; 93010; 93306; 93970; 94150; 94640; 96365; 96375; 97162; 99285; 99291; A9539; A9540; C9113; J1644; J1940

== ENCOUNTER 2023-03-04 04:58 | Inpatient (IN) | payer OTHER, SELFPAY ==
[2023-02-08 16:04] VITALS: BMI 28.0
[2023-03-04] VITALS (12 sets, daily range): BP systolic 104–165; BP diastolic 72–100; PULSE 64–117; RESP 16–35; TEMP 35.9–36.4; O2SAT 88–98; BMI 28.7
--- NOTE | 2023-03-04 05:01 | ED_ITS ---
HPI - General Adult General Chief complaint: Shortness of Breath/Dyspnea Stated complaint: cant sleep, sob Time Seen by Provider: 03/04/23 04:59 Source: patient and family Mode of arrival: Ambulatory Limitations: no limitations History of Present Illness HPI narrative: Patient is a 87-year-old male. History of atrial fibrillation. Also has a history of a pulmonary embolism that was just diagnosed when he was here in the hospital a few weeks ago. He is on anticoagulation he also has a history of heart failure. Review his medical record shows that his ejection fraction is in the 30% range. He is on a diuretic but he does not know the name of it and does not know how much that he takes. He states that since he was discharged from the hospital he is become progressively more short of breath to the point where he is unable to lay down at night. He is having lower extremity swelling. He does have very small amount of chest discomfort. No coughing. No fevers. Related Data Home Medications Medication Instructions Recorded Confirmed aspirin 81 mg chewable tablet 81 mg PO QDAY ##0 08/13/12 02/08/23 latanoprost 0.005 % eye drops 1 gtt OU HS ##0 08/13/12 02/08/23 (Xalatan) Previous Rx's Medication Instructions Recorded apixaban 5 mg tablet (Eliquis) 5 mg PO BID #60 tabs 02/10/23 diltiazem HCl 60 mg 60 mg PO BID #60 caps 02/10/23 capsule,extended release 12 hr Allergies Allergy/AdvReac Type Severity Reaction Status Date / Time No Known Drug Allergies Allergy Verified 02/08/23 11:23 Review of Systems Review of Systems ROS Unobtainable: All systems reviewed & are unremarkable except as noted in HPI and below Patient History Social History household members: spouse Smoking Status: Former smoker alcohol intake: former Smoking Status: Former smoker alcohol intake frequency: holidays/special occasions only Substance Use Type: does not use Exam Initial Vital Signs Initial Vital Signs: Vital Signs Pulse Rate 117 H 03/04/23 05:14 Respiratory Rate 32 H 03/04/23 05:14 Pulse Oximetry 93 03/04/23 05:14 Const General: cooperative HENMT Head: normal to inspection and normocephalic Resp Effort & Inspection: labored, no retractions and tachypneic Auscultation: rhonchi and wheezes Cardio Rate: tachycardic Rhythm: regular rhythm GI Inspection: normal to inspection and non-distended Skin General: no rashes or lesions noted Neuro General: patient alert, patient awake, patient oriented x3 and moves all extremities Extrem General: edema Course Orders Ordered: ED Orders 03/04/23 05:02 XR chest 1V Stat EKG-12 Lead Stat 03/04/23 05:20 Complete Blood Count AUTO DIFF Stat Comprehensive Metabolic Panel Stat Lipase Stat Magnesium Stat NT-proBNP (BNP-Adult 18+) Stat PTT Partial Thromboplastin Abisai Stat Prothrombin Time INR Stat Troponin & CK Cardiac Panel Stat 03/04/23 06:06 Consult to Physician Stat 03/04/23 06:12 Consult to Physician Urgent Discontinued Medications Furosemide 60 mg/ Sodium (Chloride) 56 mls @ 112 mls/hr IV NOW ONE Stop: 03/04/23 05:22 Last Infusion: 03/04/23 06:10 Dose: 0 mls/hr Documented By: Admin: 03/04/23 05:39 Dose: 112 mls/hr Documented By: BENJIE Vital Signs Vital signs: Vital Signs - 8 hr 03/04/23 05:26 03/04/23 05:14 03/04/23 05:30 Temperature 96.7 F L Pulse Rate 116 H 117 H Respiratory Rate 32 H 32 H Blood Pressure 150/100 H 165/90 H Pulse Oximetry 88 L 93 Oxygen Delivery Method Room Air Oxygen Flow Rate 03/04/23 05:30 03/04/23 06:00 03/04/23 06:00 Temperature Pulse Rate 111 H 109 H Respiratory Rate 31 H 30 H Blood Pressure 151/100 H Pulse Oximetry 93 94 Oxygen Delivery Method Nasal Cannula Nasal Cannula Oxygen Flow Rate 2 2 Medical Decision Making Medical Records Medical records reviewed: Yes I reviewed the patient's medical records. Lab Data 03/04/23 05:20 03/04/23 05:20 Labs: Lab Results 03/04/23 03/04/23 Range/Units 05:20 05:20 WBC 8.9 (4.5-11.0) X10^3/uL RBC 4.94 (4.5-5.9) X10^6/uL Hgb 15.9 (13.5-17.5) g/dL Hct 46.4 (41-53) % MCV 93.9 (80-100) fL MCH 32.2 (26-34) PG MCHC 34.3 (30-36) % RDW 15.2 H (11.6-14.8) % Plt Count 207 (150-400) X10^3/uL Neut % (Auto) 76.6 H (50-75) % Lymph % (Auto) 11.7 L (25-40) % [place] % (Auto) 8.5 (3-14) % Eos % (Auto) 2.6 (2-4) % Baso % (Auto) 0.6 (0-2) % Neut # (Auto) 6900 (7264-4090) /uL Lymph # (Auto) 1000 L (8450-3966) /uL [place] # (Auto) 800 (0-900) /uL Eos # (Auto) 200 (0-450) /uL Baso # (Auto) 100 (0-100) /uL Sodium 125 L (137-145) mmol/L Potassium 4.3 (3.4-5.1) mmol/L Chloride 90 L (98-107) mmol/L Carbon Dioxide 24 (22-32) mmol/L BUN 35 H (9-20) mg/dL Creatinine 1.70 H (0.66-1.25) mg/dL Estimated GFR 39 L (>60) mL/min BUN/Creatinine Ratio 20.6 (6-22) Glucose 132 H (80-110) mg/dL Calcium 8.9 (8.4-10.2) mg/dL Magnesium 2.1 (1.6-2.3) mg/dL Total Bilirubin 2.0 H (0.2-1.3) mg/dL AST 36 (17-59) IU/L ALT 50 H (<50) IU/L Alkaline Phosphatase 123 (38-126) U/L Total Creatine Kinase 74 (55-170) U/L CK-MB (CK-2) TNP CK-MB (CK-2) Rel Index TNP Troponin I 0.015 (0.01-0.034) ng/mL NT-Pro-B Natriuret Pep 9480 H (<450) pg/mL Total Protein 8.0 (6.3-8.2) g/dL Albumin 4.4 (3.5-5.0) g/dL Globulin 3.6 (1.7-4.1) g/dL Albumin/Globulin Ratio 1.2 (1.0-2.8) Lipase 350 H (23-300) U/L Imaging Data Chest x-ray: My Impression: Pulmonary edema, worse than prior ECG Data Attestation: I personally reviewed and interpreted this ECG as follows: Interpretation: Atrial fibrillation Ventricular rate 106 PVCs Left bundle-branch block Left axis deviation Relatively unchanged from EKG dated 02/08/2023 [facility] Narrative Medical decision making narrative: Patient has a known history of atrial fibrillation. He is in AFib here in the d epartment and relatively rate controlled. Is not hypotensive. Was hypoxic on room air upon entering the room. This improved with the oxygen by nasal cannula. He is a known history of heart failure with an ejection fraction of 30%. Patient's chest x-ray looks like fluid overload. He does have bilateral lower extremity swelling. He has orthopnea. Dyspnea on exertion. Patient was given Lasix. He is on a diuretic but does not know how much he takes. His kidney function is at baseline. His EKG is unchanged. Troponin is negative. Low suspicion for an infectious etiology. No indication for antibiotics. Discussed the case with Dr. Maciel on-call for the patient's primary doctor who will admit for further evaluation treatment. Discussed the need for admission with the patient. He expressed understanding and agreement. Discharge Plan Departure Patient Disposition: Admitted As Inpatient Clinical Impression: Acute exacerbation of CHF (congestive heart failure), Hypoxia, Atrial fibrillation with rapid ventricular response Admit Date/Time: 03/04/23 06:12 Admit Provider: Beny Kang
--- NOTE | 2023-03-04 05:02 | DI.RAD.S_ITS ---
PROCEDURE: XR CHEST 1V INDICATIONS: SOB with hx of CHF TECHNIQUE: One view of the chest was acquired. COMPARISON: [facility], CR, XR CHEST 1V, 02/08/2023, 11:36. FINDINGS: Surgical changes and devices: None. Lungs and pleura: Bilateral interstitial and airspace infiltrates consistent with pulmonary edema. Small pleural effusions. Bibasilar opacities are most likely atelectasis. No pneumothorax. Mediastinum: Mediastinal contours appear normal. Heart size is moderately increased. Bones and chest wall: No suspicious bony lesions. Overlying soft tissues appear unremarkable. IMPRESSION: 1. Congestive heart failure. 2. Bilateral pleural effusions and bibasilar atelectasis. Superimposed lower lobe pneumonia cannot be excluded. No significant discrepancy with the restaurant shift supervisor radiology preliminary report. Dictated by: Brittany Vences M.D. on 03/04/2023 at 8:43 Approved by: Brittany Vences M.D. on 03/04/2023 at 8:45
[2023-03-04] MEDS: FUROSEMIDE 60 MG in SODIUM CHLORIDE 0.9% 50 ML 112 MG IV (05:39)
[2023-03-04 05:42] LABS: Add Manual Diff / Slide Review NO; Alanine Aminotransferase 50 IU/L (<50); Albumin 4.4 g/dL (3.5-5.0); Albumin Globulin Ratio 1.2 (1.0-2.8); Alkaline Phosphatase 123 U/L (38-126); Aspartate Aminotransferase 36 IU/L (17-59); BUN Creatinine Ratio 20.6 (6-22); Basophils Absolute Auto 100 /uL (0-100); Basophils Percent Auto 0.6 % (0-2); Blood Urea Nitrogen 35 mg/dL (9-20); Calcium 8.9 mg/dL (8.4-10.2); Carbon Dioxide 24 mmol/L (22-32); Chloride 90 mmol/L (98-107); Creatine Kinase 74 U/L (55-170); Eosinophils Absolute Auto 200 /uL (0-450); Eosinophils Percent Auto 2.6 % (2-4); Estimated Glomerular Filt Rate 39 mL/min (>60); Globulin 3.6 g/dL (1.7-4.1); Glucose 132 mg/dL (80-110); HEMOLYSIS < 15 (0-50); Hematocrit 46.4 % (41-53); Hemoglobin 15.9 g/dL (13.5-17.5); Lipase 350 U/L (23-300); Lymphocytes Absolute Auto 1000 /uL (1100-4500); Lymphocytes Percent Auto 11.7 % (25-40); Magnesium 2.1 mg/dL (1.6-2.3); Mean Corpuscular HGB Conc 34.3 % (30-36); Mean Corpuscular Hemoglobin 32.2 PG (26-34); Mean Corpuscular Volume 93.9 fL (80-100); Monocytes Absolute Auto 800 /uL (0-900); Monocytes Percent Auto 8.5 % (3-14); Neutrophils Absolute Auto 6900 /uL (1500-7000); Neutrophils Percent Auto 76.6 % (50-75); Platelet Count 207 X10^3/uL (150-400); Potassium 4.3 mmol/L (3.4-5.1); Red Blood Cell Count 4.94 X10^6/uL (4.5-5.9); Red Cell Distribution Width 15.2 % (11.6-14.8); Sodium 125 mmol/L (137-145); White Blood Cell Count 8.9 X10^3/uL (4.5-11.0)
[2023-03-04 05:53] LABS: NT-proBNP (BNP-Adult 18+) 9480 pg/mL (<450); Troponin I 0.015 ng/mL (0.01-0.034)
[2023-03-04 07:07] LABS: INR 1.7 (0.9-1.3); Prothrombin Time 19.2 SECONDS (10.1-12.7)
[2023-03-04 07:10] LABS: PTT Partial Thromboplastin Tim 34 SECONDS (26-36)
--- NOTE | 2023-03-04 08:14 | PC.NURSE ---
Day shift: In room at 0800. Very SOB at rest and worse with any activity. Dr Kang informed and on his way to see Pt. VS WNL. 95% 3L NC. Desats with activity, talking, movement. Also c/o chest discomfort when breathing. Oriented to room and call light. 1 person assist to BSC if needed. He is able to use urinal. States he voided 4 times in ED. Agrees to not get OOB w/o help from staff. High fall risk for now.
[2023-03-04] MEDS: dilTIAZem SR 60 MG PO ×2 (10:16→21:59)
[2023-03-04] MEDS: BUMETANIDE 1 MG/4 ML VIAL 2 MG IV (10:22)
[2023-03-04] MEDS: APIXABAN 5 MG TABLET PO ×2 (10:30→21:00)
--- NOTE | 2023-03-04 10:41 | DI.ECHO.S_ITS ---
[facility] +---------+ : : [address] : : : : [id number] : : : : Phone: [phone]+ Echocardiogram Report + + :Name: MARE HANKINS Study Date: 03/04/2023 Height: 70 in : :[facility] ReadingLocation: Weight: 200 lb : : Gender: Male BSA: 2.1 m2 : :: 1935 Age: 87 yrs BP: 113/78 mmHg: :Reason For Study: CONGESTIVE HEART FAILURE : :Ordering Physician: ALEJA, : :TAHMINA Naqvi Performed By: Hue Rae : :Referring: TAHMINA MASTRESON : + + Interpretation Summary The left ventricle is moderately dilated. Left ventricular systolic function is severely reduced. The ejection fraction is estimated to be 15-20%. The left atrium is moderately dilated. The right atrium is moderately dilated. There is severe mitral regurgitation. There is moderate tricuspid regurgitation. Procedure: Images were not obtained from all of the standard acoustic windows due to the limited scope of the study. The study quality was technically adequate. Comparison is made with the echocardiogram of 02/09/2023. The heart rate ranged between 75-99 bpm during the study. Left Ventricle: The left ventricle is moderately dilated. There is normal left ventricular wall thickness. Left ventricular systolic function is severely reduced. The ejection fraction is estimated to be 15-20%. Atria: The left atrium is moderately dilated. The right atrium is moderately dilated. Mitral Valve: The mitral valve leaflets appear moderately thickened, but open well. There is mild mitral annular calcification. There is severe mitral regurgitation. Tricuspid Valve: Tricuspid leaflets are thickened. The right ventricular systolic pressure is estimated to be at least 58 mmHg based on an estimated right atrial pressure of 15 mm Hg. There is moderate tricuspid regurgitation. Great Vessels: The IVC is dilated (diameter is greater than 2.1 cm) and it collapses less than 50% with a sniff. This suggests a high right atrial pressure of 15 mm Hg. Pericardium/ Pleura There is no pericardial effusion. There is no pleural effusion. MMode/2D Measurements & Calculations LVIDd: 6.5 cm LA A2 area: 31.8 cm2 LVIDs: 6.1 cm LA A4 area: 26.7 cm2 FS: 5.0 % LA length (vol): 7.0 cm EPSS: 2.6 cm LA vol: 102.0 ml IVSd: 0.80 cm LA vol index: 48.9 ml/m2 LVPWd: 0.70 cm LV jutsin. diameter/BSA (cm/m^2): 3.1 LV sys. diameter/BSA (cm/m^2): 2.9 RA long axis: 6.2 cm TAPSE: 1.6 cm RA area: 25.5 cm2 RA vol: 88.9 ml RA : 42.6 ml/m2 IVC diam: 2.7 cm Doppler Measurements & Calculations MR ERO: 0.23 cm2 TR max carmen: 328.4 cm/sec TR max P.1 mmHg MR PISA: 2.5 cm2 MR flow rate: 108.2 cm3/sec MR PISA radius: 0.63 cm Reading Physician:04:57 PM
--- NOTE | 2023-03-04 11:09 | P.HP_ITS ---
History of Present Illness History of Present Illness Date Patient Seen: 03/04/23 Time Patient Seen: 10:05 Date of Onset of Symptoms: 03/03/23 Chief complaint: cant sleep, sob Narrative: Pt presented to ED with acute SOB noting increasing orthopnea found to be in acute CHF exacerbation with BNP 10k, otherwise generally reassuring labs, no signs of [place] or infection. I saw him outpatient and started torsemide a week or two ago - they feel like he has only worsened since then. reports he hasn't been able to get more than an hour or so of sleep at night d/t choking sensation. [facility] Social History household members: spouse Smoking Status: Former smoker alcohol intake: former Meds Home Medications and Allergies Home Medications Medication Instructions Recorded Confirmed Type aspirin 81 mg chewable tablet 81 mg PO QDAY ##0 08/13/12 02/08/23 History latanoprost 0.005 % eye drops 1 gtt OU HS ##0 08/13/12 02/08/23 History (Xalatan) apixaban 5 mg tablet (Eliquis) 5 mg PO BID #60 tabs 02/10/23 03/04/23 Rx diltiazem HCl 60 mg 60 mg PO BID #60 caps 02/10/23 03/04/23 Rx capsule,extended release 12 hr torsemide 20 mg tablet 20 mg PO DAILY 03/04/23 03/04/23 History Allergies Allergy/AdvReac Type Severity Reaction Status Date / Time No Known Drug Allergies Allergy Verified 02/08/23 11:23 Review of Systems Review of Systems Narrative: all systems reviewed and negative except as otherwise documented in HPI Exam Vital Signs (past 8 hours): - 03/04/23 05:26 03/04/23 05:14 03/04/23 05:30 Temperature 96.7 F L Pulse Rate 116 H 117 H Respiratory Rate 32 H 32 H Blood Pressure 150/100 H 165/90 H Pulse Oximetry 88 L 93 Oxygen Delivery Method Room Air Oxygen Flow Rate 03/04/23 05:30 03/04/23 06:00 03/04/23 06:00 Temperature Pulse Rate 111 H 109 H Respiratory Rate 31 H 30 H Blood Pressure 151/100 H Pulse Oximetry 93 94 Oxygen Delivery Method Nasal Cannula Nasal Cannula Oxygen Flow Rate 2 2 03/04/23 06:30 03/04/23 07:00 03/04/23 07:00 Temperature Pulse Rate 109 H 107 H Respiratory Rate 35 H 26 H Blood Pressure 130/72 Pulse Oximetry 92 93 Oxygen Delivery Method Nasal Cannula Oxygen Flow Rate 2 03/04/23 07:30 03/04/23 07:30 03/04/23 08:00 Temperature 97.6 F Pulse Rate 105 H 83 Respiratory Rate 29 H 24 Blood Pressure 140/75 129/73 Pulse Oximetry 93 98 Oxygen Delivery Method Oxygen Flow Rate 3 Oxygen Delivery Method Nasal Cannula Oxygen Flow Rate 3 Narrative Exam Narrative: elder snoozing in bed Const General: comfortable, well developed and ill appearing HENVA Head: normocephalic and atraumatic Resp Other: moving air ok, 4L via NC, moderate bibasilar crackles Cardio Rate: regular rate Rhythm: abnormal rhythm Heart Sounds: S1 normal and S2 normal Other: pedal edema 2/3+ GI Auscultation: normal bowel sounds Neuro General: patient alert, patient awake, patient oriented x3 and moves all extremities Objective Labs 03/04/23 05:20 03/04/23 05:20 Labs: Laboratory Results - last 24 hr 03/04/23 03/04/23 03/04/23 05:20 05:20 05:20 WBC 8.9 RBC 4.94 Hgb 15.9 Hct 46.4 MCV 93.9 MCH 32.2 MCHC 34.3 RDW 15.2 H Plt Count 207 Neut % (Auto) 76.6 H Lymph % (Auto) 11.7 L [place] % (Auto) 8.5 Eos % (Auto) 2.6 Baso % (Auto) 0.6 Neut # (Auto) 6900 Lymph # (Auto) 1000 L [place] # (Auto) 800 Eos # (Auto) 200 Baso # (Auto) 100 PT 19.2 H INR 1.7 H APTT 34 Sodium 125 L Potassium 4.3 Chloride 90 L Carbon Dioxide 24 BUN 35 H Creatinine 1.70 H Estimated GFR 39 L BUN/Creatinine Ratio 20.6 Glucose 132 H Calcium 8.9 Magnesium 2.1 Total Bilirubin 2.0 H AST 36 ALT 50 H Alkaline Phosphatase 123 Total Creatine Kinase 74 CK-MB (CK-2) TNP CK-MB (CK-2) Rel Index TNP Troponin I 0.015 NT-Pro-B Natriuret Pep 9480 H Total Protein 8.0 Albumin 4.4 Globulin 3.6 Albumin/Globulin Ratio 1.2 Lipase 350 H Assessment & Plan Assessment & Plan narrative: #acute exacerbation of chronic heart failure, systolic AND diastolic, present on admission - last EF ~20% S/p some diuresis in ED, will continue now with PRN oxygen and get echo which had been planned for outpatient. #hyponatremia holding IVF for now - encourage PO intake and monitor - certainly he is fluid overloaded #rate controlled afib #hx of PE stable continue eliquis and diltiazem 60 bid dispo: requiring diuresis and oxygen, admit inpatient code: full MDM: Son: contact Nicole Carmona [phone] PCP: Pearl diet: heart healthy time spent: 60 min
--- NOTE | 2023-03-04 13:55 | PC.NURSE ---
Day shift: Pt OOB to SBC and had very small BM and passed flatus. Extremely SOB with this. Gown changed because satured with sweat or fluid leaking from skin. Dr Kang notified and he has just assessed Pt. telemarketer Darlin has also assessed Pt. BLE's appear more edematous than when Pt arrived. Pt did tolerate his lumch. Remains on tele and 4L NC 95%. Pt sitting in chair now and he states he is more comfortable in it. Bladder scan Pt and if >400mls place Borrero cath now per Dr Kang. Will continue to monitor. Chair alarm in place for now. Call light in reach.
--- NOTE | 2023-03-04 14:07 | PC.NURSE ---
Day shift: Bladder scan just now (1405) shows 170mls. Will continue to monitor.
[2023-03-04] MEDS: FUROSEMIDE 40 MG/4 ML VIAL IV (17:03)
--- NOTE | 2023-03-04 21:18 | PC.NURSE ---
Tiffanie RN coordinator notified that Cardizem SR 60 mg. 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 Not administer @ 2100 & will admin. when pharmacist will provide the medication.
[2023-03-04] MEDS: HYDROCODONE/ACET 5/325 TABLET 1 TAB PO (22:41)
[2023-03-05] VITALS (8 sets, daily range): BP systolic 103–126; BP diastolic 47–75; PULSE 78–101; RESP 15–20; TEMP 36.2–36.7; O2SAT 93–96
[2023-03-05] MEDS: SODIUM CHLORIDE 0.9% FLUSH 10 ML IV ×3 (00:19→20:05)
[2023-03-05] MEDS: FUROSEMIDE 40 MG/4 ML VIAL IV ×3 (00:20→20:05)
[2023-03-05 09:59] LABS: Alanine Aminotransferase 42 IU/L (<50); Albumin 3.9 g/dL (3.5-5.0); Albumin Globulin Ratio 1.2 (1.0-2.8); Alkaline Phosphatase 90 U/L (38-126); Aspartate Aminotransferase 28 IU/L (17-59); BUN Creatinine Ratio 25.8 (6-22); Bilirubin Total 1.9 mg/dL (0.2-1.3); Blood Urea Nitrogen 41 mg/dL (9-20); Calcium 8.6 mg/dL (8.4-10.2); Carbon Dioxide 31 mmol/L (22-32); Chloride 85 mmol/L (98-107); Estimated Glomerular Filt Rate 42 mL/min (>60); Globulin 3.2 g/dL (1.7-4.1); Glucose 115 mg/dL (80-110); HEMOLYSIS 17 (0-50); Potassium 3.9 mmol/L (3.4-5.1); Sodium 125 mmol/L (137-145); Total Protein 7.1 g/dL (6.3-8.2)
[2023-03-05 10:08] LABS: NT-proBNP (BNP-Adult 18+) 8370 pg/mL (<450)
[2023-03-05] MEDS: APIXABAN 5 MG TABLET PO ×2 (10:10→20:04)
--- NOTE | 2023-03-05 12:14 | PM.PN.1 ---
Subjective Subjective Date Patient Seen: 03/05/23 Interval history: The pt this morning reports feeling improved. He was able to sleep more comfortably last night. He states that his breathing is easier, although he remains more SOB than baseline. He feels his swelling is going down. He continues to deny any chest pain. He is looking forward to when he gets to return home. Exam Vital Signs (past 8 hours): - 03/05/23 07:00 03/05/23 09:00 03/05/23 11:00 Pulse Oximetry 96 95 93 Oxygen Delivery Method Nasal Cannula Oxygen Flow Rate 2 2 3 Oxygen Delivery Method Nasal Cannula Oxygen Flow Rate 3 Narrative Exam Narrative: Gen: NAD, sitting comfortably in bed, able to speak in short sentences, appears well, NC in place CV: irregularly irregular rhythm, normal rate, no murmurs Resp: clear to auscultation bilaterally, no crackles or wheezes Ext: 2+ pitting edema bilaterally Objective Labs 03/04/23 05:20 03/05/23 09:37 Labs: Laboratory Results - last 24 hr 03/05/23 09:37 Sodium 125 L Potassium 3.9 Chloride 85 L Carbon Dioxide 31 BUN 41 H Creatinine 1.59 H Estimated GFR 42 L BUN/Creatinine Ratio 25.8 H Glucose 115 H Calcium 8.6 Total Bilirubin 1.9 H AST 28 ALT 42 Alkaline Phosphatase 90 NT-Pro-B Natriuret Pep 8370 H Total Protein 7.1 Albumin 3.9 Globulin 3.2 Albumin/Globulin Ratio 1.2 PFSH Social History household members: spouse Smoking Status: Former smoker alcohol intake: former Assessment & Plan Assessment & Plan narrative: Pt is an 87yo man with chronic systolic and diastolic CHF, atrial fibrillation on chronic anticoagulation, and hx of PE who presented with SOB and profound orthopnea. 1) Acute CHF exacerbation: EF 20-25% 02/08/23. Net negative 2200 thus far s/p Lasix and Bumex. BNP trending down minimally. Swelling improving, O2 requirement falling. Cr stable. - Continue Lasix 40mg q8hr today - Will need f/u with Cardiology as an outpatient 2) Hyponatremia: Stable. - Fluid restriction - Continue to trend 3) Atrial fibrillation: Rate controlled - Continue home Eliquis, Diltiazem Code: Full Diet: Cardiac DVT ppx: Eliquis as above Dispo: Pending continued improvement in respiratory status. Potentially ready for discharge tomorrow if adequate ongoing diuresis. Quality VTE Deep Vein Thrombosis/Pulmonary Embolism Present on Admission: No
--- NOTE | 2023-03-05 13:40 | PT.IIE ---
Current Diagnoses Acute on chronic combined systolic (congestive) and diastolic (congestive) heart failure (03/04/23) Physical Therapy Inpatient Evaluation/Re-Eval M1 PT/OT-IP Prior Functional Status Start: 03/05/23 14:18 Freq: NEEDED Status: Active Protocol: Document 03/05/23 13:40 AB (Rec: 03/05/23 14:35 AB [id number]) Medical Review Prior Functional Status Medical History Reviewed Yes Communication able to make needs known Mobility and Gait pt stated that he is modified independent with all mobilities and ambulation without AD Prior Functional Level (Other details) pt admitted in the hospital to 02/10/23 for CHF and went home. pt stated that he was not been able to move much at home since d/c and now admitted back for CHF exacerbation. Social History Household Members spouse Living Arrangements House Number of Floors (Floors) One Floor Number of Stairs To Enter/Railing? 2 steps without rails to enter Home Environment High Toilet,Tub/Shower Home Equipment Front Wheel Walker,Straight Cane,Shower Seat without Backrest,Grab Bars In Shower Additional Social History Comment spouse will not be able to assist pt but son and DIL lives close by and can provide assistance M2 PT-IP Current Condition Start: 03/05/23 14:18 Freq: NEEDED Status: Active Protocol: Document 03/05/23 13:40 AB (Rec: 03/05/23 14:35 AB [email or web address]) Physical Therapy Current Condition Current Condition Evaluation Date 03/05/23 Treatment Diagnosis CHF; difficulty in walking Onset Date 03/04/23 M3 PT-IP Subjective Start: 03/05/23 14:18 Freq: NEEDED Status: Active Protocol: Document 03/05/23 13:40 AB (Rec: 03/05/23 14:35 AB [id number]) Subjective Physical Therapy Visit Type Type Initial Evaluation Visit Start Time 13:40 Visit Stop Time 14:17 Total Visit Minutes 37 Number of ADDICTION SPECIALIST Visits 0 M4 PT-IP Mobility and Gait Start: 03/05/23 14:18 Freq: NEEDED Status: Active Protocol: Document 03/05/23 13:40 AB (Rec: 03/05/23 14:35 AB [email or web address]) PT-Bed Mobility Assessment Supine to Sit Supine to Sit Standby Assistance PT-Transfer Assessment Sit to and From Stand Sit to and from Stand Contact Guard Assistance,1 Person Assistance,Use of Upper Extremities Equipment Transfer Assistive Device Gait Belt,Front Wheeled Walker Orthotic/Prosthetic Devices or Brace: No Transfers Transfer Destination Chair Transfer Technique ambulated Transfer Ability Level of Assist Standby Assistance,Contact Guard Assistance,1 Person Assistance,Use of Upper Extremities Comments Mobility Comments BP in supine: 120/72 GA: varies: 86 to 109; O2 sat with 2L/min O2: 93-96% completed supine to sti SBA. able to sit on EOB SBA. (+) SOB. O2 sat 86% but increased to ~ 89-90% in ~ 10 sec. GA initially 65 bpm but also increased to 70s after seated rest. pt continues to have labored breathing but able to talk and respond to question and pt no complaints. completed sit to stand CGA and ambulated in room using FWW ~ 45 ft SBA to CGA. slow paced gait and cued for deep breathing in between activities. continue to have SOB. pt sat on the chair. BP checked: 121/71 O2 sat : 87-88 % GA: 109, O2 sat increased to 90-91% after resting for ~ 10 -15 sec. pt agreed to stay up on the chair. positiioned on the chair. call light and table placed within reach. Gait Assessment Gait Gait Assistance Required: Standby Assistance,Contact Guard Assist Distance (Feet) 45 Able to Maintain Weight Bearing Status Yes During Gait Assistive Devices Assistive Device Gait Belt,Front Wheeled Walker Orthotic/Prosthetic Devices or Brace: No Factors Limiting Gait Function Factors Limiting Gait Function Decreased Activity Tolerance, Decreased Strength,Poor Safety Awareness PT-Balance Assessment Sitting Balance and Reactions Static Sitting Balance Ability Normal Dynamic Sitting Balance Ability Good Standing Balance and Reactions Static Standing Balance Ability Fair Dynamic Standing Balance Ability Fair Device Used FWW M5 PT-IP Objective Assessments Start: 03/05/23 14:18 Freq: NEEDED Status: Active Protocol: Document 03/05/23 13:40 AB (Rec: 03/05/23 14:35 AB [id number]) Orientation Orientation/Cognition Level of Alertness Alert Orientation Name,Place,Situation Language Function Ability No Deficits Noted Safety Awareness Decreased Safety Awareness Memory Description No Deficits Noted Gross Range of Motion Lower Extremity ROM Assessment Within Functional Limits Strength Lower Extremity Strength Hip 3-/5 Knee 3-/5 Muscle Tone Muscle Tone WNL Yes M6 PT-IP Treatment Start: 03/05/23 14:18 Freq: NEEDED Status: Active Protocol: Document 03/05/23 13:40 AB (Rec: 03/05/23 14:35 AB [id number]) Physical Therapy Treatment Education Education Provided Safety M7 PT-IP Assessment and Plan Start: 03/05/23 14:18 Freq: NEEDED Status: Active Protocol: Document 03/05/23 13:40 AB (Rec: 03/05/23 14:35 AB [id number]) PT Summary Assessment and Plan Potential Rehabilitation Potential Fair Status of Condition at Evaluation Evolving Summary Impairments Pain,ROM,Strength,Balance, Coordination,Sensation,Tone, Cognition,Bed Mobility, Transfers,Gait,Activity Tolerance Assessment Summary pt admitted for CHF exacerbation. Pt requiring SBA to CGA with ambulation using FWW but has decreased activity tolerance with (+) SOB during activities. O2 sat decreased to 87-88% with 2L/ min O2. Pt has not been using any O2 at home. pt plans to go home and family will be able to assist pt at home. will continue to assess progress. pt also needs to complete stair climbing training prior to dc. Goals Bed Mobility Goal Independent Transfer Goal Independent,Front Wheeled Walker Gait Goal Independent,Front Wheel Walker Gait Distance 200 Other Goals ambulation without AD 250 ft SBA up/down 2 steps without rails SBA Days to Meet Goals 10 Frequency of Treatment Frequency Of Treatment Once a Day Treatment Plan Physical Therapy Treatment Plan Bed Mobility Training,Transfer Training,Gait Training, Therapeutic Exercise,Balance Retraining,Discharge Planning, Neuromuscular Re-ed, Coordination Retraining Precautions Other Precautions O2 sat Recommendations To Nursing Amount of Assist Needed 1 Person Assist Discharge Recommendations PT Discharge Recommendations Home with Assistance, Outpatient PT Other Discharge Recommendations pt may benefit from outpt cardiopulmonary rehab Transportation Needs at Discharge Private Vehicle,Wheelchair/ Cabulance
--- NOTE | 2023-03-05 16:02 | CM.DANOTE ---
DCP: Chart review for case, met with patient at bedside, they agree to case management assessment. Completed DCP assessment based on information available. Patient is an 87 year old presented to ER by private auto admitted to care of hospitalist team. PCP: Beny Kang, new referral to [facility] apt for April 14, as per Lillian Arevalo already had a referral for cardiac rehab. Payor: Raheem ALTAMIRANO CC: Met with patient in room 209. 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 He state that his son and (Mame GOINS/DPRAMBO and Tiffanie) are staying with Kym. Patient wants to stay in his own home, but understands increasing care needs for his . He has considered assisted living, but concerned about the expense. Daughter in law Lillian ( to patient?s son Jamil) left message on VM. Returned call to her at [phone]. She relays many long conversations with patient and his about concerns, but he has not made decisions yet. CM encouraged family to come together and have family discussions in support of a safe home plan with paid caregivers OR consider resources (provided to patient at bedside) for local assisted living facilities. P: IV diuresis, 02, PT (rec cardiac rehab and/or OP PT) DCP: Agrees to the idea of HH RN and will consider zoo caretaker at least 4 hours/day. Home with family support. Su Torres RN, CM Discharge Planning/Care Management Advanced directive, confirm from FAMILY Start: 03/04/23 11:15 Freq: Q24H Status: Active Protocol: Document 03/04/23 11:19 YAD (Rec: 03/04/23 11:20 YAD [id number]) Advance Directive, confirm on record Time 11:19 Person contacted Pt Copy received No CM Discharge Assessment Start: 03/05/23 14:38 Freq: Status: Active Protocol: Document 03/05/23 14:39 BQ (Rec: 03/05/23 14:52 BQ [id number]) Discharge Planning Assessment Assigned Liquid Flavor Compounder Su Torres RN, CM DPOA/Assigned Designee Name Son Mame Arevalo Contact Information [phone] Advance Directives? Yes Advance Directives on File No: pt has, family instructed to bring. full code. History Provided By Patient,Medical Record Has Patient been admitted in last 30 Yes days? Comment Prior admission February 14 Prior Living Arrangements House Household Members spouse Type of transporation used prior to Drives own vehicle admit Independent with ADL's Yes Is patient alert and oriented? Yes Needs Assistance With Home Chores / Shopping Comment States has manager traffic every other week. Caregiver for Another Yes Patient/Family Preference Home with Home Health Barriers to Discharge Yes Comment Shortness of breath with walking less than one block. Discharge Plan Home with Home Health Referrals Initiated Home Health Medicare Choice List Provided Yes Medicare choice list reviewed on patient electronic tablet with Whiteboard Updated in Patient Room with Yes name and ext. # of Liquid Flavor Compounder Review Status In Process Next Review Type Continued Stay Review
--- NOTE | 2023-03-05 17:52 | PC.NURSE ---
0700 - 1900 Pt A/O, sat in chair most day. SpO2 95% 2L O2 Denies discomfort. HL intact/patent. Condition remains essentially unchanged. Call light w/in reach, pt calls appropriately for needs. Continue w/planm of care.
[2023-03-05] MEDS: dilTIAZem SR 60 MG PO (20:04)
[2023-03-06] VITALS (7 sets, daily range): BP systolic 108–124; BP diastolic 62–82; PULSE 50–92; RESP 17–18; TEMP 36.2–36.6; O2SAT 91–96
[2023-03-06] MEDS: FUROSEMIDE 40 MG/4 ML VIAL IV ×3 (04:16→20:06)
[2023-03-06 05:49] LABS: BUN Creatinine Ratio 24.3 (6-22); Blood Urea Nitrogen 42 mg/dL (9-20); Calcium 8.6 mg/dL (8.4-10.2); Carbon Dioxide 32 mmol/L (22-32); Chloride 84 mmol/L (98-107); Estimated Glomerular Filt Rate 38 mL/min (>60); Glucose 95 mg/dL (80-110); HEMOLYSIS < 15 (0-50); Potassium 3.7 mmol/L (3.4-5.1); Sodium 124 mmol/L (137-145)
[2023-03-06] MEDS: dilTIAZem SR 60 MG PO ×2 (08:16→20:06)
[2023-03-06] MEDS: SODIUM CHLORIDE 0.9% FLUSH 10 ML IV ×2 (08:16→20:06)
[2023-03-06] MEDS: APIXABAN 5 MG TABLET PO ×2 (08:16→20:06)
--- NOTE | 2023-03-06 09:54 | PM.PN.1 ---
Subjective Subjective Date Patient Seen: 03/06/23 Interval history: The pt reports that his breathing continues to improve. He denies any specific concerns today. He didn't get much sleep because he was urinating so frequently overnight. Exam Vital Signs (past 8 hours): - 03/06/23 04:23 03/06/23 08:26 03/06/23 08:00 Temperature 97.9 F 97.1 F L Pulse Rate 72 59 L Respiratory Rate 17 17 Blood Pressure 124/82 109/65 Pulse Oximetry 96 93 91 Oxygen Delivery Method Nasal Cannula Oxygen Flow Rate 1 1 1 Oxygen Delivery Method Nasal Cannula Oxygen Flow Rate 1 Narrative Exam Narrative: Gen:? NAD, sitting comfortably in bed, able to speak in short sentences, appears well, NC in place CV:? irregularly irregular rhythm, normal rate, no murmurs Resp:? clear to auscultation bilaterally, no crackles or wheezes Ext:? 1+ pitting edema bilaterally, improved significantly from yesterday Objective Labs 03/04/23 05:20 03/06/23 05:15 Labs: Laboratory Results - last 24 hr 03/05/23 03/06/23 09:37 05:15 Sodium 125 L 124 L Potassium 3.9 3.7 Chloride 85 L 84 L Carbon Dioxide 31 32 BUN 41 H 42 H Creatinine 1.59 H 1.73 H Estimated GFR 42 L 38 L BUN/Creatinine Ratio 25.8 H 24.3 H Glucose 115 H 95 Calcium 8.6 8.6 Total Bilirubin 1.9 H AST 28 ALT 42 Alkaline Phosphatase 90 NT-Pro-B Natriuret Pep 8370 H Total Protein 7.1 Albumin 3.9 Globulin 3.2 Albumin/Globulin Ratio 1.2 PFSH Social History household members: spouse Smoking Status: Former smoker alcohol intake: former Assessment & Plan Assessment & Plan narrative: Pt is an 87yo man with chronic systolic and diastolic CHF, atrial fibrillation on chronic anticoagulation, and hx of PE who presented with SOB and profound orthopnea. 1) Acute CHF exacerbation: EF 20-25% 02/08/23. Net negative 3200 thus far s/p Lasix and Bumex. Swelling improving, O2 requirement falling now at 1L. Cr stable. - Continue Lasix 40mg q8hr today - Will need f/u with Cardiology as an outpatient 2) Hyponatremia: Sodium 124 this morning. Asymptomatic. - Fluid restriction to 1L/day - Continue to trend 3) Atrial fibrillation: Rate controlled - Continue home Eliquis Diltiazem Code: Full Diet: Cardiac DVT ppx: Eliquis as above Dispo: Pending continued improvement in respiratory status. Should be able to discharge off oxygen. Hopeful for d/c tomorrow. Quality VTE Deep Vein Thrombosis/Pulmonary Embolism Present on Admission: No
--- NOTE | 2023-03-06 10:59 | PT.IPTN ---
Current Diagnoses Acute on chronic combined systolic (congestive) and diastolic (congestive) heart failure (03/04/23) Physical Therapy Treatment Note M2 PT-IP Current Condition Start: 03/05/23 14:18 Freq: NEEDED Status: Active Protocol: Document 03/05/23 13:40 AB (Rec: 03/05/23 14:35 AB [id number]) Physical Therapy Current Condition Current Condition Evaluation Date 03/05/23 Treatment Diagnosis CHF; difficulty in walking Onset Date 03/04/23 M3 PT-IP Subjective Start: 03/05/23 14:18 Freq: NEEDED Status: Active Protocol: Document 03/06/23 10:38 KS (Rec: 03/06/23 11:47 KS [id number]) Subjective Physical Therapy Visit Type Type Treatment Note Visit Start Time 10:38 Visit Stop Time 10:59 Total Visit Minutes 21 Notes O2 after ambulation 95% on 1L. Number of PIN CLEANER Visits 1 M4 PT-IP Mobility and Gait Start: 03/05/23 14:18 Freq: NEEDED Status: Active Protocol: Document 03/06/23 10:38 KS (Rec: 03/06/23 11:47 KS [id number]) PT-Transfer Assessment Sit to and From Stand Sit to and from Stand Contact Guard Assistance,1 Person Assistance,Use of Upper Extremities Equipment Transfer Assistive Device Gait Belt,Front Wheeled Walker Orthotic/Prosthetic Devices or Brace: No Transfers Transfer Destination Chair Transfer Technique ambulated Transfer Ability Level of Assist Standby Assistance,Contact Guard Assistance,1 Person Assistance,Use of Upper Extremities Comments Mobility Comments Pt in chair upon arrival, eager to ambulate. CGA for sit <>stand w/ FWW. Pt ambulated ~ 25 ft before taking seated rest break for O2 monitor, portable O2 not reading at this time. Pt then ambulated to sink and performed hygiene while maintaining standing balance ~2 min before ambulating additional 45 ft w/ FWW CGA. Pt returned to chair and O2 was 95% on 1L. Pt left in chair w/ all needs in reach. Gait Assessment Gait Gait Assistance Required: Contact Guard Assist,1 Person Assist Distance (Feet) 45 Able to Maintain Weight Bearing Status Yes During Gait Assistive Devices Assistive Device Gait Belt,Front Wheeled Walker Orthotic/Prosthetic Devices or Brace: No Gait Deviations General Gait Pattern Decreased Stride Length, Decreased Feet Clearance Factors Limiting Gait Function Factors Limiting Gait Function Decreased Activity Tolerance, Decreased Strength,Poor Balance,Respiratory Distress Comments Gait Comments Slightly labored breathing but denied SOB. 1L O2. PT-Balance Assessment Sitting Balance and Reactions Static Sitting Balance Ability Normal Dynamic Sitting Balance Ability Good Standing Balance and Reactions Static Standing Balance Ability Fair Dynamic Standing Balance Ability Fair Device Used FWW M5 PT-IP Objective Assessments Start: 03/05/23 14:18 Freq: NEEDED Status: Active Protocol: Document 03/05/23 13:40 AB (Rec: 03/05/23 14:35 AB [email or web address]) Orientation Orientation/Cognition Level of Alertness Alert Orientation Name,Place,Situation Language Function Ability No Deficits Noted Safety Awareness Decreased Safety Awareness Memory Description No Deficits Noted Gross Range of Motion Lower Extremity ROM Assessment Within Functional Limits Strength Lower Extremity Strength Hip 3-/5 Knee 3-/5 Muscle Tone Muscle Tone WNL Yes M6 PT-IP Treatment Start: 03/05/23 14:18 Freq: NEEDED Status: Active Protocol: Document 03/06/23 10:38 KS (Rec: 03/06/23 11:47 KS [id number]) Physical Therapy Treatment Education Education Provided Safety M7 PT-IP Assessment and Plan Start: 03/05/23 14:18 Freq: NEEDED Status: Active Protocol: Document 03/06/23 10:38 KS (Rec: 03/06/23 11:47 KS [id number]) PT Summary Assessment and Plan Potential Rehabilitation Potential Fair Summary Impairments Pain,ROM,Strength,Balance, Coordination,Sensation,Tone, Cognition,Bed Mobility, Transfers,Gait,Activity Tolerance Progress Towards Goals Slow Progress due to Medical Issues,Slow Progress due to Activity Tolerance Assessment Summary Pt continues to require SBA to CGA throughout treatment and is limited by SOB and low activity tolerance. He ambulated 25 ft, 45 ft, and stood for 2 min this AM and reported slight fatigue following. His O2 was 95% after treatmnet while on 1L. Anticipate pt will be safe to go home w/ family support and would benefit from HHPT. He will also need to complete stair training, will continue to assess progress. Goals Bed Mobility Goal Independent Transfer Goal Independent,Front Wheeled Walker Gait Goal Independent,Front Wheel Walker Gait Distance 200 Other Goals ambulation without AD 250 ft SBA up/down 2 steps without rails SBA Days to Meet Goals 10 Frequency of Treatment Frequency Of Treatment Once a Day Treatment Plan Physical Therapy Treatment Plan Bed Mobility Training,Transfer Training,Gait Training, Therapeutic Exercise,Balance Retraining,Discharge Planning, Neuromuscular Re-ed, Coordination Retraining Precautions Other Precautions O2 sat Recommendations To Nursing Amount of Assist Needed 1 Person Assist Discharge Recommendations PT Discharge Recommendations Home with Assistance,Home Health,Outpatient PT Other Discharge Recommendations pt may benefit from outpt cardiopulmonary rehab Transportation Needs at Discharge Private Vehicle,Wheelchair/ Cabulance
[2023-03-07 02:09] VITALS: PULSE 75; O2SAT 95
[2023-03-07 03:45] VITALS: BP 106/73; PULSE 84; RESP 17; TEMP 36.2; O2SAT 95
[2023-03-07] MEDS: FUROSEMIDE 40 MG/4 ML VIAL IV (04:41)
[2023-03-07 05:45] LABS: BUN Creatinine Ratio 30.9 (6-22); Blood Urea Nitrogen 46 mg/dL (9-20); Calcium 8.3 mg/dL (8.4-10.2); Carbon Dioxide 32 mmol/L (22-32); Chloride 85 mmol/L (98-107); Estimated Glomerular Filt Rate 46 mL/min (>60); Glucose 104 mg/dL (80-110); HEMOLYSIS 21 (0-50); Potassium 3.3 mmol/L (3.4-5.1); Sodium 124 mmol/L (137-145)
[2023-03-07 08:00] VITALS: BP 104/63; PULSE 95; RESP 17; TEMP 36.4; O2SAT 93
[2023-03-07] MEDS: APIXABAN 5 MG TABLET PO (08:21)
[2023-03-07] MEDS: SODIUM CHLORIDE 0.9% FLUSH 10 ML IV (08:22)
[2023-03-07] MEDS: dilTIAZem SR 60 MG PO (08:22)
--- NOTE | 2023-03-07 08:55 | PT.IPTN ---
Current Diagnoses Acute on chronic combined systolic (congestive) and diastolic (congestive) heart failure (03/04/23) Physical Therapy Treatment Note M2 PT-IP Current Condition Start: 03/05/23 14:18 Freq: NEEDED Status: Active Protocol: Document 03/05/23 13:40 AB (Rec: 03/05/23 14:35 AB [id number]) Physical Therapy Current Condition Current Condition Evaluation Date 03/05/23 Treatment Diagnosis CHF; difficulty in walking Onset Date 03/04/23 M3 PT-IP Subjective Start: 03/05/23 14:18 Freq: NEEDED Status: Active Protocol: Document 03/07/23 09:21 TS (Rec: 03/07/23 09:45 TS [id number]) Subjective Physical Therapy Visit Type Type Treatment Note Visit Start Time 08:55 Visit Stop Time 09:16 Total Visit Minutes 21 Notes Spo2: 93% RA at rest, 82%RA Number of SALES TRAINER Visits 2 M4 PT-IP Mobility and Gait Start: 03/05/23 14:18 Freq: NEEDED Status: Active Protocol: Document 03/07/23 09:21 TS (Rec: 03/07/23 09:45 TS [id number]) PT-Bed Mobility Assessment Supine to Sit Supine to Sit Independent Sit to Supine Sit to Supine Independent Scooting Scooting to Edge of Bed Independent Scooting Up and Down in Bed Independent PT-Transfer Assessment Sit to and From Stand Sit to and from Stand Standby Assistance Equipment Transfer Assistive Device Gait Belt,Front Wheeled Walker Orthotic/Prosthetic Devices or Brace: No Comments Mobility Comments Pt found resting in bed, agreeable to PT. Supine to sit Ind with HOB elevated uses BUE support to sit EOB. He performed sit to stand SBA with FWW, maintains good posture with no retrolean. He ambulated ~300' SBA with FWW, some SOB, Spo2 86 after ~150'. Pt performed stairs x6 SBA with single handrail step over step, no buckling or LOB. Pt ambulated back to room, stand to sit into chair SBA with FWW with no UE support. After mobility Spo2 82%, ~2mins to recover to low 90's. PT was left in chair with call light nearby, chair alarm on, RN notified. Gait Assessment Gait Gait Assistance Required: Standby Assistance,1 Person Assist Distance (Feet) 300 Able to Maintain Weight Bearing Status Yes During Gait Assistive Devices Assistive Device Gait Belt,Front Wheeled Walker Orthotic/Prosthetic Devices or Brace: No Factors Limiting Gait Function Factors Limiting Gait Function Decreased Activity Tolerance, Respiratory Distress Comments Gait Comments See mobility comments. Stair Climbing Assessment Evaluation Level of Assist On Stairs Standby Assistance Devices Stair Climbing Assistive Devices Right Railing Technique/Endurance Stair Climbing Direction Ascend and Descend Stair Climbing Technique Step Over Step Number of Steps Climbed 6 Comments Stair Climbing Comments See mobility comments. PT-Balance Assessment Sitting Balance and Reactions Static Sitting Balance Ability Normal Dynamic Sitting Balance Ability Good Standing Balance and Reactions Static Standing Balance Ability Good Dynamic Standing Balance Ability Good M5 PT-IP Objective Assessments Start: 03/05/23 14:18 Freq: NEEDED Status: Active Protocol: Document 03/05/23 13:40 AB (Rec: 03/05/23 14:35 AB [id number]) Orientation Orientation/Cognition Level of Alertness Alert Orientation Name,Place,Situation Language Function Ability No Deficits Noted Safety Awareness Decreased Safety Awareness Memory Description No Deficits Noted Gross Range of Motion Lower Extremity ROM Assessment Within Functional Limits Strength Lower Extremity Strength Hip 3-/5 Knee 3-/5 Muscle Tone Muscle Tone WNL Yes M6 PT-IP Treatment Start: 03/05/23 14:18 Freq: NEEDED Status: Active Protocol: Document 03/07/23 09:21 TS (Rec: 03/07/23 09:45 TS [id number]) Physical Therapy Treatment Education Education Provided Safety M7 PT-IP Assessment and Plan Start: 03/05/23 14:18 Freq: NEEDED Status: Active Protocol: Document 03/07/23 09:21 TS (Rec: 03/07/23 09:45 TS [id number]) PT Summary Assessment and Plan Potential Rehabilitation Potential Good Summary Impairments Pain,ROM,Strength,Balance, Coordination,Sensation,Tone, Cognition,Bed Mobility, Transfers,Gait,Activity Tolerance Progress Towards Goals Progressing Toward Goals Assessment Summary Pt is progressing well with his mobility and is on RA at start of treatment. Spo2 at rest 93% on RA, after mobility 82% RA, ~2mins to recover bakc to low 90's. He is Ind with all bed mobility this session. He progressed his gait to ~300' SBA with FWW with normal steps. He performed stairs x6 with R handrail assit step over step, pt attempted no handrail but was unsafe with balance. PT is recommending home with assist and HHPT. Goals Bed Mobility Goal Independent Transfer Goal Independent,Front Wheeled Walker Gait Goal Independent,Front Wheel Walker Gait Distance 200 Other Goals ambulation without AD 250 ft SBA up/down 2 steps without rails SBA Days to Meet Goals 10 Frequency of Treatment Frequency Of Treatment Once a Day Treatment Plan Physical Therapy Treatment Plan Bed Mobility Training,Transfer Training,Gait Training, Therapeutic Exercise,Balance Retraining,Discharge Planning, Neuromuscular Re-ed, Coordination Retraining Precautions Other Precautions O2 sat Recommendations To Nursing Amount of Assist Needed Standby Assistance Discharge Recommendations PT Discharge Recommendations Home with Assistance,Home Health,Outpatient PT Other Discharge Recommendations pt may benefit from outpt cardiopulmonary rehab Transportation Needs at Discharge Private Vehicle,Wheelchair/ Cabulance
--- NOTE | 2023-03-07 08:59 | P.DS_ITS ---
History of Present Illness History of Present Illness Date Patient Seen: 03/07/23 Time Patient Seen: 08:59 Date of Onset of Symptoms: 02/20/23 Chief complaint: cant sleep, sob Narrative: Off oxygen supplementation this morning good UOP noted over weekend good appetite feeling ready to go home discussed increased diuretic doses and need for close follow up Discharge Providers Provider Date of admission: 03/04/23 06:12 Discharge Date: 03/07/23 Primary care physician: Beny Kang MD Consults: 03/04/23 06:06 Consult to Physician Stat Comment: Consulting Provider: Hill Maciel Reason for consultation: admission Has provider been notified: Yes 03/04/23 06:12 Consult to Physician Urgent Comment: Consulting Provider: Beny Kang Reason for consultation: admission Has provider been notified: No 03/05/23 12:23 Consult to Physical Therapy Evaluate & Treat Comment: Physician Instructions: Evaluate and Treat Discharge provider: Beny Kang MD Summary Hospital Course Discharge Diagnosis: #acute on chronic systolic and diastolic chronic congestive heart failure #hyponatremia #atrial fibrillation rate controlled #chronic kidney failure 3a Hospital Course: Pt with hx of recently diagnosed CHF with EF 25% s/p recent admission presented to ED with acute SOB noting increasing orthopnea found to be in acute CHF exacerbation with BNP 10k, otherwise generally reassuring labs, no signs of ME or infection. I saw him outpatient and started torsemide a week or two ago - feels like he has only worsened since then. He reports he hasn't been able to get more than an hour or so of sleep at night d/t choking sensation. Over admission here he has been diuresed and has been able to come off oxygen as a result. He already has appointments with cardiology and cardiac rehab to establish from last visit. Will plan on increased torsemide dosing on discharge witih close follow up as outpatient. Advise fluid restriction to 1500mL. Status at Discharge Cognitive/behavioral status at discharge: at baseline, oriented Functional status at discharge: uses cane/walker Overall status at discharge: patient is progressing back to baseline Exam Vital Signs (past 8 hours): - 03/07/23 02:09 03/07/23 03:45 Temperature 97.2 F L Pulse Rate 75 84 Respiratory Rate 17 Blood Pressure 106/73 Pulse Oximetry 95 95 Oxygen Delivery Method Nasal Cannula Oxygen Flow Rate 1 1 Fraction of Inspired Oxygen 24 Fraction of Inspired Oxygen 24 SaO2/FiO2 Ratio 395 Oxygen Delivery Method Nasal Cannula Oxygen Flow Rate 1 Narrative Exam Narrative: sitting up in bed without oxygen Resp Other: clear to auscultation bilaterally Cardio Rate: regular rate Heart Sounds: S1 normal and S2 normal GI Auscultation: normal bowel sounds Neuro General: patient alert, patient awake, patient oriented x3 and moves all ext remities Extrem Other: pedal edema 2+ to calves bilaterally Objective Labs 03/04/23 05:20 03/07/23 05:07 Labs: Laboratory Results - last 24 hr 03/07/23 05:07 Sodium 124 L Potassium 3.3 L Chloride 85 L Carbon Dioxide 32 BUN 46 H Creatinine 1.49 H Estimated GFR 46 L BUN/Creatinine Ratio 30.9 H Glucose 104 Calcium 8.3 L PFSH Social History household members: spouse Smoking Status: Former smoker alcohol intake: former Discharge Assessment & Plan Assessment and Plan Assessment: #acute on chronic systolic and diastolic chronic congestive heart failure EF down from 20-25% to 15-20%. Reponding to diruesis with good output - will increase oral torsemide doses to 40 bid on discharge with close follow up has appts to begin seeing cardiology and cardiac rehab as outpatient #hyponatremia Fluid restriction on d/c to 1500mL trend on d/c - encourage salt in meals good oral intake #atrial fibrillation rate controlled stable continue home eliquis and diltiazem #chronic kidney failure improved to CKD 3A avoid nephrotoxics Code:? Full Diet:? Cardiac DVT ppx:? Eliquis as above Dispo:? Improved respiratory status - will dc home with and increased oral diuretic doses to f/u as outpt time spent: 40 min Discharge Plan Discharge Plan Patient Disposition: Home Health Service Discharge orders & Medications Prescriptions: New torsemide 20 mg tablet 40 mg PO 0900,1600 30 Days Qty: 120 0RF Continued diltiazem HCl 60 mg Capsule,Extended Release 12 Hr 60 mg PO BID Qty: 60 0RF Eliquis 5 mg tablet 5 mg PO BID Qty: 60 0RF Discontinued torsemide 20 mg tablet 20 mg PO DAILY Patient Comments: take 1 tablet by mouth every morning Follow up/Referrals: Beny Kang MD [Primary Care Provider] - Visit Report/Discharge Packet Instructions: Heart Failure Stand Alone Forms: Patient Portal/API, Stroke Signs & Symptoms Discharge Data Primary Care Provider: Beny Kang VTE Deep Vein Thrombosis/Pulmonary Embolism Present on Admission: No
--- NOTE | 2023-03-07 09:17 | CM.DPC ---
Addendum entered by Annmarie Chiu R.N. 03/07/23 12:40: Qamar at [facility] called back and indicated that they can see patient Tuesday. Gave him Tiffanie, [id number]'s phone number, she was not concerned about patient being seen right away. Addendum entered by Annmarie Chiu R.N. 03/07/23 12:31: Went ahead and sent referral to [facility], pending hearing back from Qamar regarding when nursing can open, since this if patient's first choice. Faxed over DC Summary, orders, and face to face. Ordered RN, P.T, O.T, and ELECTRONICS ENGINEERING TECHNICIAN. Addendum entered by Annmarie Chiu R.N. 03/07/23 11:40: Spoke with patient's [id number], Tiffanie. She is picking up patient today. Her number is: [phone]. Her alternate number is: [phone]. Let her and patient know that it is unclear as to when [facility] can start, but do have [facility] who can start tomorrow. Left Qamar at [facility] a message and asked him to update this DC Pencils Washer when he knows about nursing schedule. Tiffanie asked to update her, since [facility] is first choice, to see what their schedule is before using [facility]. Will await sending [facility] referral until Qamar calls back. Original Note: DCP Cont: Spoke to Dr. Kang, plans on discharging patient. [facility] was ordered, but noted that patient has [employer], [facility] does not accept. Went over choice list with patient, is ok with [facility]. Called Qamar at [facility], he will have his meeting to see the soonest that they can see patient. It is noted that [facility] has availabilities tomorrow. Confirmed with Angy at [facility]. Awaiting to hear back from Qamar, if [facility] can see first, may give [facility] the referral. Patient did not have special preferences, just wants to go home today. Stated that his [id number] will be staying with him today when he gets home. P: Patient is supposed to discharge home today, was working with TIM Mcclellan, this morning. Sent referral initiall to [facility], but will depend when they can see patient, if they are booked out, will go with [facility]. Annmarie Chiu RN/Appliquer
[2023-03-07] MEDS: TORSEMIDE 10 MG TABLET 40 MG PO (10:01)
[2023-03-07] MEDS: FUROSEMIDE 80 MG in SODIUM CHLORIDE 0.9% 50 ML 116 MG IV (10:02)
== END 2023-03-07 12:03 | disposition home health service (06) | DRG 291 ==
LOC: ED 05:23 → AC 06:13
PROVIDERS: Family Medicine; Admitting Provider Family Medicine; Emergency Provider Emergency Medicine; PCP Family Medicine; Referring Provider Emergency Medicine; Visit Provider Family Medicine
DX: I50.43 Acute on chronic combined systolic (congestive) and diastolic (congestive) heart failure (principal); J96.01 Acute respiratory failure with hypoxia; E87.1 Hypo-osmolality and hyponatremia; N18.31 Chronic kidney disease, stage 3a; I48.91 Unspecified atrial fibrillation; Z86.718 Personal history of other venous thrombosis and embolism; Z20.822 Contact with and (suspected) exposure to COVID-19; Z87.891 Personal history of nicotine dependence; Z79.01 Long term (current) use of anticoagulants
CPT/HCPCS: 36415; 71045; 80048; 80053; 82550; 83690; 83735; 83880; 84484; 85025; 85610; 85730; 93005; 93307; 94762; 96365; 97116; 97162; 99232; 99284; 99285; J1940

== ENCOUNTER → 2023-03-21 08:25 | Outpatient (CLI) | payer OTHER, SELFPAY ==
[2023-03-04 11:10] VITALS: BMI 28.7
[2023-03-21 09:19] LABS: Alanine Aminotransferase 56 IU/L (<50); Albumin Globulin Ratio 1.3 (1.0-2.8); Alkaline Phosphatase 102 U/L (38-126); Aspartate Aminotransferase 35 IU/L (17-59); BUN Creatinine Ratio 24.6 (6-22); Bilirubin Total 1.6 mg/dL (0.2-1.3); Blood Urea Nitrogen 74 mg/dL (9-20); Calcium 9.5 mg/dL (8.4-10.2); Carbon Dioxide 31 mmol/L (22-32); Chloride 98 mmol/L (98-107); Cholesterol 112 mg/dL (140-199); Estimated Glomerular Filt Rate 20 mL/min (>60); Globulin 3.1 g/dL (1.7-4.1); Glucose 123 mg/dL (80-110); HDL Cholesterol 43 mg/dL (40-60); HEMOLYSIS < 15 (0-50); LDL Cholesterol Calculated 52 mg/dL (<100); Potassium 4.5 mmol/L (3.4-5.1); Sodium 139 mmol/L (137-145); Total Protein 7.1 g/dL (6.3-8.2); Triglycerides 83 mg/dL (35-150)
[2023-03-21 09:35] LABS: Free T4, Direct Thyroxine 1.51 ng/dL (0.78-2.19)
[2023-03-21 09:49] LABS: Thyroid Stimulating Hormone 3.08 uIU/mL (0.47-4.68)
== END ==
PROVIDERS: PCP Family Medicine; Referring Provider Internal Medicine Cardiovascular Disease; Visit Provider Internal Medicine Cardiovascular Disease
DX: I50.20 Unspecified systolic (congestive) heart failure (principal); I48.91 Unspecified atrial fibrillation; Z13.220 Encounter for screening for lipoid disorders
CPT/HCPCS: 36415; 80053; 80061; 84439; 84443

== ENCOUNTER → 2023-04-05 09:32 | Outpatient (CLI) | payer OTHER, SELFPAY ==
[2023-03-04 11:10] VITALS: BMI 28.7
[2023-04-05 10:53] LABS: BUN Creatinine Ratio 27.7 (6-22); Blood Urea Nitrogen 92 mg/dL (9-20); Calcium 8.8 mg/dL (8.4-10.2); Carbon Dioxide 28 mmol/L (22-32); Chloride 96 mmol/L (98-107); Estimated Glomerular Filt Rate 17 mL/min (>60); Glucose 112 mg/dL (80-110); HEMOLYSIS < 15 (0-50); Potassium 4.7 mmol/L (3.4-5.1); Sodium 135 mmol/L (137-145)
== END ==
PROVIDERS: PCP Family Medicine; Referring Provider Internal Medicine Cardiovascular Disease; Visit Provider Internal Medicine Cardiovascular Disease
DX: I50.20 Unspecified systolic (congestive) heart failure (principal)
CPT/HCPCS: 36415; 80048

== ENCOUNTER 2023-04-11 10:15 | Outpatient (RCR) | payer OTHER, SELFPAY ==
[2023-02-08 16:04] VITALS: BMI 28.0
[2023-03-04 11:10] VITALS: BMI 28.7
== END 2023-04-11 12:15 ==
LOC: CAR 10:15
PROVIDERS: PCP Family Medicine; Referring Provider Family Medicine; Visit Provider Family Medicine
DX: I50.22 Chronic systolic (congestive) heart failure (principal)
CPT/HCPCS: 93798

== ENCOUNTER → 2023-05-03 11:51 | Outpatient (ROUT) | payer OTHER, SELFPAY ==
[2023-03-04 11:10] VITALS: BMI 28.7
[2023-05-03 12:09] LABS: BUN Creatinine Ratio 23.5 (6-22); Blood Urea Nitrogen 44 mg/dL (9-20); Calcium 8.4 mg/dL (8.4-10.2); Carbon Dioxide 27 mmol/L (22-32); Chloride 97 mmol/L (98-107); Estimated Glomerular Filt Rate 35 mL/min (>60); Glucose 110 mg/dL (80-110); HEMOLYSIS < 15 (0-50); Potassium 3.9 mmol/L (3.4-5.1); Sodium 132 mmol/L (137-145)
== END ==
PROVIDERS: PCP Family Medicine; Visit Provider Family Medicine
DX: R57.0 Cardiogenic shock (principal)
CPT/HCPCS: 80048

== ENCOUNTER → 2023-09-01 18:28 | Outpatient (ROUT) | payer OTHER, SELFPAY ==
[2023-03-04 11:10] VITALS: BMI 28.7
[2023-09-01 19:44] LABS: BUN Creatinine Ratio 15.1 (6-22); Blood Urea Nitrogen 37 mg/dL (9-20); Carbon Dioxide 23 mmol/L (22-32); Chloride 105 mmol/L (98-107); Estimated Glomerular Filt Rate 25 mL/min (>60); Glucose 107 mg/dL (80-110); HEMOLYSIS 18 (0-50); Potassium 4.3 mmol/L (3.4-5.1); Sodium 138 mmol/L (137-145)
== END ==
PROVIDERS: PCP Family Medicine; Visit Provider Internal Medicine
DX: I50.23 Acute on chronic systolic (congestive) heart failure (principal)
CPT/HCPCS: 80048

== ENCOUNTER → 2023-09-15 16:35 | Outpatient (ROUT) | payer OTHER, SELFPAY ==
[2023-03-04 11:10] VITALS: BMI 28.7
[2023-09-15 17:02] LABS: BUN Creatinine Ratio 17.6 (6-22); Blood Urea Nitrogen 40 mg/dL (9-20); Calcium 9.1 mg/dL (8.4-10.2); Carbon Dioxide 22 mmol/L (22-32); Chloride 106 mmol/L (98-107); Estimated Glomerular Filt Rate 27 mL/min (>60); Glucose 101 mg/dL (80-110); HEMOLYSIS < 15 (0-50); Potassium 4.7 mmol/L (3.4-5.1); Sodium 137 mmol/L (137-145)
== END ==
PROVIDERS: PCP Family Medicine; Visit Provider Internal Medicine
DX: I50.23 Acute on chronic systolic (congestive) heart failure (principal)
CPT/HCPCS: 80048

== ENCOUNTER → 2023-09-22 17:33 | Outpatient (ROUT) | payer OTHER, SELFPAY ==
[2023-03-04 11:10] VITALS: BMI 28.7
[2023-09-22 17:54] LABS: BUN Creatinine Ratio 17.2 (6-22); Blood Urea Nitrogen 36 mg/dL (9-20); Calcium 8.8 mg/dL (8.4-10.2); Carbon Dioxide 23 mmol/L (22-32); Chloride 106 mmol/L (98-107); Estimated Glomerular Filt Rate 30 mL/min (>60); Glucose 92 mg/dL (80-110); HEMOLYSIS < 15 (0-50); Potassium 5.1 mmol/L (3.4-5.1); Sodium 136 mmol/L (137-145)
== END ==
PROVIDERS: PCP Family Medicine; Visit Provider Internal Medicine
DX: I50.23 Acute on chronic systolic (congestive) heart failure (principal)
CPT/HCPCS: 80048

== ENCOUNTER → 2023-09-29 16:50 | Outpatient (ROUT) | payer OTHER, SELFPAY ==
[2023-03-04 11:10] VITALS: BMI 28.7
[2023-09-29 17:29] LABS: BUN Creatinine Ratio 17.3 (6-22); Blood Urea Nitrogen 46 mg/dL (9-20); Carbon Dioxide 24 mmol/L (22-32); Chloride 105 mmol/L (98-107); Estimated Glomerular Filt Rate 23 mL/min (>60); Glucose 92 mg/dL (80-110); HEMOLYSIS < 15 (0-50); Potassium 4.5 mmol/L (3.4-5.1); Sodium 138 mmol/L (137-145)
== END ==
PROVIDERS: PCP Family Medicine; Visit Provider Internal Medicine
DX: I50.23 Acute on chronic systolic (congestive) heart failure (principal)
CPT/HCPCS: 80048

== ENCOUNTER → 2023-10-06 18:01 | Outpatient (ROUT) | payer OTHER, SELFPAY ==
[2023-03-04 11:10] VITALS: BMI 28.7
[2023-10-06 18:45] LABS: BUN Creatinine Ratio 15.9 (6-22); Blood Urea Nitrogen 34 mg/dL (9-20); Carbon Dioxide 22 mmol/L (22-32); Chloride 106 mmol/L (98-107); Estimated Glomerular Filt Rate 29 mL/min (>60); Glucose 98 mg/dL (80-110); HEMOLYSIS < 15 (0-50); Potassium 4.9 mmol/L (3.4-5.1); Sodium 134 mmol/L (137-145)
== END ==
PROVIDERS: PCP Family Medicine; Visit Provider Internal Medicine
DX: I50.23 Acute on chronic systolic (congestive) heart failure (principal)
CPT/HCPCS: 80048

== ENCOUNTER → 2023-10-13 16:27 | Outpatient (ROUT) | payer OTHER, SELFPAY ==
[2023-03-04 11:10] VITALS: BMI 28.7
[2023-10-13 16:39] LABS: BUN Creatinine Ratio 16.3 (6-22); Blood Urea Nitrogen 32 mg/dL (9-20); Calcium 8.8 mg/dL (8.4-10.2); Carbon Dioxide 22 mmol/L (22-32); Chloride 106 mmol/L (98-107); Estimated Glomerular Filt Rate 33 mL/min (>60); Glucose 113 mg/dL (80-110); HEMOLYSIS 20 (0-50); Potassium 4.7 mmol/L (3.4-5.1); Sodium 137 mmol/L (137-145)
== END ==
PROVIDERS: PCP Family Medicine; Visit Provider Internal Medicine
DX: I50.23 Acute on chronic systolic (congestive) heart failure (principal)
CPT/HCPCS: 80048

== ENCOUNTER → 2023-11-03 20:28 | Outpatient (ROUT) | payer OTHER, SELFPAY ==
[2023-03-04 11:10] VITALS: BMI 28.7
[2023-11-03 20:42] LABS: BUN Creatinine Ratio 14.2 (6-22); Blood Urea Nitrogen 28 mg/dL (9-20); Calcium 8.5 mg/dL (8.4-10.2); Carbon Dioxide 22 mmol/L (22-32); Chloride 106 mmol/L (98-107); Estimated Glomerular Filt Rate 32 mL/min (>60); Glucose 98 mg/dL (80-110); Potassium 4.4 mmol/L (3.4-5.1); Sodium 139 mmol/L (137-145)
[2023-11-03 20:51] LABS: HEMOLYSIS 19 (0-50)
== END ==
PROVIDERS: PCP Family Medicine; Visit Provider Internal Medicine
DX: I50.23 Acute on chronic systolic (congestive) heart failure (principal)
CPT/HCPCS: 80048

== ENCOUNTER → 2023-12-01 09:14 | Outpatient (CLI) | payer OTHER, SELFPAY ==
[2023-03-04 11:10] VITALS: BMI 28.7
--- NOTE | 2023-12-01 | DI.ECHO.S_ITS ---
[facility] +---------+ [facility] +---------+ : : [address] : : : : [id number] : : : : Phone: [phone]+ Echocardiogram Report + + :Name: MARE HANKINS Study Date: 12/01/2023 Height: 68 in : :[facility] ReadingLocation: Weight: 170 lb : : Gender: Male BSA: 1.9 m2 : :: 1935 Age: 88 yrs BP: 146/74 mmHg: :Reason For Study: ACUTE SYSTOLIC HEART FAILURE : :Ordering Physician: LIV HONG : :L Performed By: Hill Singh : :Referring: LIV HONG L : + + Interpretation Summary The ejection fraction is estimated to be 20-25%.Grade II diastolic dysfunction. There is severe mitral regurgitation. There is moderate to severe tricuspid regurgitation. The right ventricular systolic pressure is estimated to be at least 67 mmHg based on an estimated right atrial pressure of 8 mm Hg. The left atrium is severely dilated. The right atrium is moderately dilated. Procedure: A two-dimensional transthoracic echocardiogram with color flow and Doppler was performed. The study quality was technically adequate. Comparison is made with the echocardiogram of 04/13/2023. The patient was in normal sinus rhythm during the exam. The heart rate ranged between 67-82 bpm during the study. Left Ventricle: The left ventricle is mild-moderately dilated. There is normal left ventricular wall thickness. The ejection fraction is estimated to be 20-25%. Grade II diastolic dysfunction. Right Ventricle: The right ventricle is moderately dilated. The right ventricular systolic function is normal. Atria: The left atrium is severely dilated. The right atrium is moderately dilated. The interatrial septum grossly appears intact with no obvious evidence for an atrial septal defect. Mitral Valve: The mitral valve is normal in structure and function. There is no mitral valve stenosis. There is severe mitral regurgitation. Aortic Valve: The aortic valve is trileaflet. There is no aortic valve stenosis. There is mild aortic regurgitation. Tricuspid Valve: The tricuspid valve is normal in structure and function. There is no tricuspid stenosis. There is moderate to severe tricuspid regurgitation. The right ventricular systolic pressure is estimated to be at least 67 mmHg based on an estimated right atrial pressure of 8 mm Hg. Pulmonic Valve: The pulmonic valve is not well visualized. There is no pulmonic valvular stenosis. There is mild pulmonic regurgitation. Great Vessels: The aortic root is normal size. The dimensions of the ascending aorta are normal. The IVC is of normal diameter and collapses less than 50% with a sniff. This suggests a right atrial pressure of 8 mm Hg. Pericardium/ Pleura There is no pericardial effusion. There is no pleural effusion. MMode/2D Measurements & Calculations LVIDd: 6.4 cm LVOT diam: 2.0 cm LVIDs: 5.5 cm Ao root diam: 2.9 cm FS: 13.2 % asc Aorta Diam: 3.2 cm IVSd: 0.76 cm Ao Arch Diam (Prox Trans): 2.6 cm LVPWd: 0.72 cm LV justin. diameter/BSA (cm/m^2): 3.3 LV sys. diameter/BSA (cm/m^2): 2.9 LA A2 area: 33.4 cm2 RA long axis: 6.2 cm LA A4 area: 35.5 cm2 RA area: 22.8 cm2 LA length (vol): 7.1 cm RA vol: 71.6 ml LA vol: 140.7 ml RA : 37.5 ml/m2 LA vol index: 73.8 ml/m2 IVC diam: 2.0 cm RVD1 (basal): 4.7 cm RVD2 (mid): 3.9 cm TAPSE: 1.9 cm Doppler Measurements & Calculations Ao V2 max: 191.1 cm/sec LVOT Max Magnus: 101.8 cm/sec Ao V2 mean: 142.5 cm/sec LV V1 max P.1 mmHg Ao max P.6 mmHg LV V1 VTI: 19.5 cm Ao mean P.7 mmHg KEVIN(I,D): 1.5 cm2 Ao V2 VTI: 40.1 cm KEVIN(V,D): 1.6 cm2 sev ratio: 0.49 KEVIN indexed to BSA (cm^2/m^2): 0.78 AI P1/2t: 401.3 msec AI dec slope: 290.9 cm/sec2 MV E max magnus: 125.6 cm/sec TR max magnus: 384.4 cm/sec MV A max magnus: 106.7 cm/sec TR max P.1 mmHg MV E/A: 1.2 PA V2 max: 116.7 cm/sec MV dec time: 0.16 sec PA V2 mean: 71.0 cm/sec MR ERO: 0.41 cm2 PA mean P.4 mmHg PA pr(Accel): 43.0 mmHg PISA: 6.3 cm2 SV(LVOT): 59.8 ml MR flow rate: 220.4 cm3/sec MR PISA radius: 1.00 cm Reading Physician:PM
== END ==
LOC: ECHO 09:14
PROVIDERS: PCP Family Medicine; Referring Provider Internal Medicine; Visit Provider Internal Medicine
DX: I08.0 Rheumatic disorders of both mitral and aortic valves (principal); I50.21 Acute systolic (congestive) heart failure
CPT/HCPCS: 93306

== ENCOUNTER → 2023-12-08 14:57 | Outpatient (ROUT) | payer OTHER, SELFPAY ==
[2023-03-04 11:10] VITALS: BMI 28.7
[2023-12-08 15:26] LABS: Blood Urea Nitrogen 27 mg/dL (9-20); Calcium 8.6 mg/dL (8.4-10.2); Carbon Dioxide 25 mmol/L (22-32); Chloride 106 mmol/L (98-107); Estimated Glomerular Filt Rate 31 mL/min (>60); Glucose 99 mg/dL (80-110); HEMOLYSIS < 15 (0-50); Potassium 4.5 mmol/L (3.4-5.1); Sodium 138 mmol/L (137-145)
== END ==
PROVIDERS: PCP Family Medicine; Visit Provider Internal Medicine
DX: I50.23 Acute on chronic systolic (congestive) heart failure (principal)
CPT/HCPCS: 80048

== ENCOUNTER → 2023-12-15 14:15 | Outpatient (ROUT) | payer OTHER, SELFPAY ==
[2023-03-04 11:10] VITALS: BMI 28.7
[2023-12-15 14:56] LABS: BUN Creatinine Ratio 13.3 (6-22); Blood Urea Nitrogen 28 mg/dL (9-20); Calcium 8.6 mg/dL (8.4-10.2); Carbon Dioxide 23 mmol/L (22-32); Chloride 109 mmol/L (98-107); Estimated Glomerular Filt Rate 30 mL/min (>60); Glucose 116 mg/dL (80-110); HEMOLYSIS < 15 (0-50); Potassium 4.6 mmol/L (3.4-5.1); Sodium 139 mmol/L (137-145)
== END ==
PROVIDERS: PCP Family Medicine; Visit Provider Internal Medicine
DX: I50.23 Acute on chronic systolic (congestive) heart failure (principal)
CPT/HCPCS: 80048

== ENCOUNTER → 2024-01-05 17:58 | Outpatient (ROUT) | payer OTHER, SELFPAY ==
[2023-03-04 11:10] VITALS: BMI 28.7
[2024-01-05 18:24] LABS: Blood Urea Nitrogen 35 mg/dL (9-20); Calcium 8.7 mg/dL (8.4-10.2); Carbon Dioxide 24 mmol/L (22-32); Chloride 110 mmol/L (98-107); Estimated Glomerular Filt Rate 24 mL/min (>60); Glucose 90 mg/dL (80-110); HEMOLYSIS 21 (0-50); Potassium 4.6 mmol/L (3.4-5.1); Sodium 141 mmol/L (137-145)
== END ==
PROVIDERS: PCP Family Medicine; Visit Provider Internal Medicine
DX: I50.23 Acute on chronic systolic (congestive) heart failure (principal)
CPT/HCPCS: 80048

== ENCOUNTER → 2024-01-13 11:23 | Outpatient (ROUT) | payer OTHER, SELFPAY ==
[2023-03-04 11:10] VITALS: BMI 28.7
[2024-01-13 11:44] LABS: BUN Creatinine Ratio 16.9 (6-22); Blood Urea Nitrogen 45 mg/dL (9-20); Calcium 9.1 mg/dL (8.4-10.2); Carbon Dioxide 23 mmol/L (22-32); Chloride 111 mmol/L (98-107); Estimated Glomerular Filt Rate 23 mL/min (>60); Glucose 87 mg/dL (80-110); HEMOLYSIS 20 (0-50); Potassium 4.8 mmol/L (3.4-5.1); Sodium 143 mmol/L (137-145)
== END ==
PROVIDERS: PCP Family Medicine; Visit Provider Internal Medicine
DX: I50.23 Acute on chronic systolic (congestive) heart failure (principal)
CPT/HCPCS: 80048

== ENCOUNTER → 2024-01-19 17:53 | Outpatient (ROUT) | payer OTHER, SELFPAY ==
[2023-03-04 11:10] VITALS: BMI 28.7
[2024-01-19 18:22] LABS: BUN Creatinine Ratio 19.7 (6-22); Blood Urea Nitrogen 69 mg/dL (9-20); Calcium 9.1 mg/dL (8.4-10.2); Carbon Dioxide 27 mmol/L (22-32); Chloride 109 mmol/L (98-107); Estimated Glomerular Filt Rate 16 mL/min (>60); Glucose 78 mg/dL (80-110); HEMOLYSIS < 15 (0-50); Potassium 4.7 mmol/L (3.4-5.1); Sodium 142 mmol/L (137-145)
== END ==
PROVIDERS: PCP Family Medicine; Visit Provider Nurse Practitioner
DX: I50.23 Acute on chronic systolic (congestive) heart failure (principal)
CPT/HCPCS: 80048

== ENCOUNTER → 2024-01-26 18:50 | Outpatient (ROUT) | payer OTHER, SELFPAY ==
[2023-03-04 11:10] VITALS: BMI 28.7
[2024-01-26 20:19] LABS: BUN Creatinine Ratio 14.7 (6-22); Blood Urea Nitrogen 39 mg/dL (9-20); Calcium 8.8 mg/dL (8.4-10.2); Carbon Dioxide 25 mmol/L (22-32); Chloride 107 mmol/L (98-107); Estimated Glomerular Filt Rate 23 mL/min (>60); Glucose 116 mg/dL (80-110); HEMOLYSIS < 15 (0-50); Potassium 4.4 mmol/L (3.4-5.1); Sodium 139 mmol/L (137-145)
== END ==
PROVIDERS: PCP Family Medicine; Visit Provider Nurse Practitioner
DX: I50.23 Acute on chronic systolic (congestive) heart failure (principal)
CPT/HCPCS: 80048

== ENCOUNTER → 2024-02-02 17:43 | Outpatient (ROUT) | payer OTHER, SELFPAY ==
[2023-03-04 11:10] VITALS: BMI 28.7
[2024-02-02 21:35] LABS: BUN Creatinine Ratio 20.3 (6-22); Blood Urea Nitrogen 60 mg/dL (9-20); Calcium 8.6 mg/dL (8.4-10.2); Carbon Dioxide 23 mmol/L (22-32); Chloride 110 mmol/L (98-107); Estimated Glomerular Filt Rate 20 mL/min (>60); Glucose 114 mg/dL (80-110); HEMOLYSIS 36 (0-50); Sodium 142 mmol/L (137-145)
== END ==
PROVIDERS: PCP Family Medicine; Visit Provider Internal Medicine
DX: I50.23 Acute on chronic systolic (congestive) heart failure (principal)
CPT/HCPCS: 80048

== ENCOUNTER → 2024-02-09 19:53 | Outpatient (ROUT) | payer OTHER, SELFPAY ==
[2023-03-04 11:10] VITALS: BMI 28.7
[2024-02-09 20:17] LABS: BUN Creatinine Ratio 19.5 (6-22); Blood Urea Nitrogen 80 mg/dL (9-20); Calcium 8.8 mg/dL (8.4-10.2); Carbon Dioxide 20 mmol/L (22-32); Chloride 109 mmol/L (98-107); Estimated Glomerular Filt Rate 13 mL/min (>60); Glucose 86 mg/dL (80-110); HEMOLYSIS 25 (0-50); Sodium 142 mmol/L (137-145)
== END ==
PROVIDERS: PCP Family Medicine; Visit Provider Internal Medicine
DX: I50.23 Acute on chronic systolic (congestive) heart failure (principal)
CPT/HCPCS: 80048

== ENCOUNTER → 2024-02-14 11:25 | Outpatient (CLI) | payer OTHER, SELFPAY ==
[2023-03-04 11:10] VITALS: BMI 28.7
[2024-02-14 13:34] LABS: BUN Creatinine Ratio 19.6 (6-22); Blood Urea Nitrogen 66 mg/dL (9-20); Calcium 8.5 mg/dL (8.4-10.2); Carbon Dioxide 26 mmol/L (22-32); Chloride 106 mmol/L (98-107); Estimated Glomerular Filt Rate 17 mL/min (>60); Glucose 81 mg/dL (80-110); HEMOLYSIS < 15 (0-50); Potassium 4.6 mmol/L (3.4-5.1); Sodium 141 mmol/L (137-145)
== END ==
LOC: LAB 11:27
PROVIDERS: PCP Family Medicine; Referring Provider Internal Medicine; Visit Provider Internal Medicine
DX: I50.22 Chronic systolic (congestive) heart failure (principal)
CPT/HCPCS: 36415; 80048

== ENCOUNTER → 2024-02-27 10:34 | Outpatient (CLI) | payer OTHER, SELFPAY ==
[2023-03-04 11:10] VITALS: BMI 28.7
[2024-02-27 11:41] LABS: Blood Urea Nitrogen 50 mg/dL (9-20); Calcium 8.4 mg/dL (8.4-10.2); Carbon Dioxide 31 mmol/L (22-32); Chloride 103 mmol/L (98-107); Estimated Glomerular Filt Rate 19 mL/min (>60); Glucose 122 mg/dL (80-110); HEMOLYSIS < 15 (0-50); Potassium 4.2 mmol/L (3.4-5.1); Sodium 138 mmol/L (137-145)
== END ==
LOC: LAB 10:35
PROVIDERS: PCP Family Medicine; Referring Provider Internal Medicine; Visit Provider Internal Medicine
DX: I50.22 Chronic systolic (congestive) heart failure (principal)
CPT/HCPCS: 36415; 80048

== ENCOUNTER → 2024-04-21 09:28 | Outpatient (CLI) | payer OTHER, SELFPAY ==
[2023-03-04 11:10] VITALS: BMI 28.7
[2024-04-21 10:38] LABS: Add Manual Diff / Slide Review NO; Basophils Absolute Auto 100 /uL (0-100); Basophils Percent Auto 1.1 % (0-2); Eosinophils Absolute Auto 600 /uL (0-450); Eosinophils Percent Auto 10.7 % (2-4); Hematocrit 39.7 % (41-53); Hemoglobin 13.3 g/dL (13.5-17.5); Lymphocytes Absolute Auto 800 /uL (1100-4500); Lymphocytes Percent Auto 15.1 % (25-40); Mean Corpuscular HGB Conc 33.5 % (30-36); Mean Corpuscular Hemoglobin 32.1 PG (26-34); Mean Corpuscular Volume 96.1 fL (80-100); Monocytes Absolute Auto 600 /uL (0-900); Monocytes Percent Auto 10.7 % (3-14); Neutrophils Absolute Auto 3400 /uL (1500-7000); Neutrophils Percent Auto 62.4 % (50-75); Platelet Count 170 X10^3/uL (150-400); Red Blood Cell Count 4.13 X10^6/uL (4.5-5.9); Red Cell Distribution Width 14.3 % (11.6-14.8); White Blood Cell Count 5.5 X10^3/uL (4.5-11.0)
[2024-04-21 10:59] LABS: HEMOLYSIS < 15 (0-50); Iron 112 ug/dL (49-181)
[2024-04-21 11:02] LABS: Albumin 3.7 g/dL (3.5-5.0); BUN Creatinine Ratio 15.5 (6-22); Blood Urea Nitrogen 48 mg/dL (9-20); Carbon Dioxide 29 mmol/L (22-32); Chloride 100 mmol/L (98-107); Estimated Glomerular Filt Rate 19 mL/min (>60); Glucose 89 mg/dL (80-110); HEMOLYSIS < 15 (0-50); Phosphorous 3.3 mg/dL (2.3-3.7); Potassium 5.1 mmol/L (3.4-5.1); Sodium 135 mmol/L (137-145)
[2024-04-21 11:10] LABS: Percent Iron Saturation 53 % (20-50); Total Iron Binding Capacity 210 ug/dL (261-462); Transferrin 157 mg/dL (206-381)
[2024-04-21 11:38] LABS: Ferritin 110 ng/mL (18-464)
[2024-04-21 14:20] LABS: Creatinine Urine Random 91.64 mg/dL; Protein (Total) Urine Random 13 mg/dL (0-12); Protein Creatinine Ratio Urine 0.14 GRAM/24H
[2024-04-21 14:24] LABS: Microalbumin Urine Random 0.8 mg/dL (0-1.6)
[2024-04-22 10:40] LABS: Parathyroid Hormone Int 65 pg/mL (15-65)
== END ==
PROVIDERS: PCP Family Medicine; Referring Provider Internal Medicine Nephrology; Visit Provider Internal Medicine Nephrology
DX: N18.4 Chronic kidney disease, stage 4 (severe) (principal); I50.23 Acute on chronic systolic (congestive) heart failure; N17.9 Acute kidney failure, unspecified; N18.9 Chronic kidney disease, unspecified
CPT/HCPCS: 36415; 80069; 82043; 82306; 82570; 82728; 83540; 83550; 83970; 84156; 85025

== ENCOUNTER → 2024-07-05 10:22 | Outpatient (CLI) | payer OTHER, SELFPAY ==
[2023-03-04 11:10] VITALS: BMI 28.7
--- NOTE | 2024-07-05 10:24 | DI.ECHO.S_ITS ---
[facility] : : [address] : : [place] : : [id number] : : Phone: [phone] Echocardiogram Report + + :Name: MARE HANKINS Study Date: 07/05/2024 Height: 70 in : :[facility] ReadingLocation: Weight: 170 lb : : Gender: Male BSA: 1.9 m2 : :: 1935 Age: 89 yrs BP: 120/55 mmHg: :Reason For Study: SYSTOLIC HEART FAILURE : :Ordering Physician: CLAYTON, : :MANUEL Performed By: Hill Singh : :Referring: UNSPECIFIED : + + Interpretation Summary 1. The left ventricular contractility is moderately compromised. Estimate ejection fraction is approximate 30 to 35% with paradoxical septal motion and the remaining segments being moderately hypokinetic. There is moderate concentric LVH. Grade 1 diastolic dysfunction. 2. The right ventricle contractility is normal. 3. Biatrial enlargement noted. 4. Moderate eccentric mitral regurgitation. 5. Mild aortic insufficiency. 6. Mild to moderate tricuspid regurgitation with estimated pulm systolic artery pressure of 38 mmHg. 7. Mild pulmonic insufficiency. 8. No obvious intracardiac shunts. 9. No obvious intracardiac masses nor thrombi. 10. No hemodynamically significant pericardial effusion. 11. Low right-sided filling pressures. Conclusion: Moderately compromised left ventricular systolic function with mild to moderate valvular heart disease. Procedure: A two-dimensional transthoracic echocardiogram with color flow and Doppler was performed. The study quality was technically good. Comparison is made with the echocardiogram of 12/01/2023. The patient was in normal sinus rhythm during the exam. Left Ventricle: The left ventricle is normal in size. Left ventricular wall thickness is mildly increased. Left ventricular systolic function is severely reduced. The ejection fraction is estimated to be 30-35%. There are regional wall motion abnormalities as specified. Diastolic parameters suggest a relaxation abnormality of the left ventricle, consistent with probable normal filling pressures. Right Ventricle: The right ventricle is normal size. Right ventricular systolic function is mildly reduced. Atria: The left atrium is moderately dilated. The right atrium is mild to moderately dilated. There is no Doppler evidence for an atrial septal defect. The interatrial septum bows toward right atrium consistent with elevated left atrial pressure. Mitral Valve: The mitral valve is normal in structure and function. There is moderate mitral regurgitation. Aortic Valve: The aortic valve is trileaflet. The aortic valve is mildly calcified. There is minimally reduced leaflet mobility. There is mild aortic regurgitation. Tricuspid Valve: The tricuspid valve is normal in structure and function. There is moderate tricuspid regurgitation. The right ventricular systolic pressure is estimated to be at least 38 mmHg based on an estimated right atrial pressure of 3 mm Hg. Pulmonic Valve: The pulmonic valve is normal in structure and function. There is mild pulmonic regurgitation. Great Vessels: The aortic root is normal size. The dimensions of the ascending aorta are normal. The pulmonary artery is normal size. The IVC is of normal diameter and collapses greater than 50% with a sniff. This suggests a low right atrial pressure of 3 mm Hg. Pericardium/ Pleura There is no pericardial effusion. There is no pleural effusion. MMode/2D Measurements & Calculations LVIDd: 4.8 cm LVOT diam: 2.0 cm LVIDs: 4.2 cm Ao root diam: 3.2 cm FS: 12.9 % asc Aorta Diam: 3.1 cm EPSS: 1.1 cm Ao Arch Diam (Prox Trans): 2.7 cm IVSd: 1.4 cm LVPWd: 0.97 cm LV justin. diameter/BSA (cm/m^2): 2.5 LV sys. diameter/BSA (cm/m^2): 2.2 LA A2 area: 24.7 cm2 RA long axis: 6.1 cm LA A4 area: 26.4 cm2 RA area: 19.0 cm2 LA length (vol): 5.8 cm RA vol: 50.0 ml LA vol: 95.9 ml RA : 25.7 ml/m2 LA vol index: 49.3 ml/m2 IVC diam: 1.3 cm RVD1 (basal): 3.8 cm RVD2 (mid): 3.4 cm TAPSE: 1.6 cm Doppler Measurements & Calculations Ao V2 max: 178.1 cm/sec LVOT Max Magnus: 82.6 cm/sec Ao V2 mean: 125.4 cm/sec LV V1 max P.7 mmHg Ao max P.7 mmHg LV V1 VTI: 17.7 cm Ao mean P.8 mmHg KEVIN(I,D): 1.6 cm2 Ao V2 VTI: 36.3 cm KEVIN(V,D): 1.5 cm2 sev ratio: 0.49 KEVIN indexed to BSA (cm^2/m^2): 0.81 AI P1/2t: 854.1 msec AI dec slope: 111.3 cm/sec2 MV E max magnus: 58.4 cm/sec TR max magnus: 297.0 cm/sec MV A max magnus: 99.1 cm/sec TR max P.3 mmHg MV E/A: 0.59 PA V2 max: 92.7 cm/sec Med Peak E' Magnus: 4.6 cm/sec PA V2 mean: 57.4 cm/sec E/E' med: 12.7 PA mean P.5 mmHg Lat Peak E' Magnus: 5.8 cm/sec PA pr(Accel): 36.2 mmHg E/E' lat: 10.0 E/e' average: 11.3 MV dec time: 0.28 sec MR PISA: 3.0 cm2 SV(LVOT): 56.9 ml MR flow rate: 111.1 cm3/sec MR PISA radius: 0.69 cm Reading Physician:
== END ==
PROVIDERS: PCP Family Medicine; Referring Provider Registered Nurse; Visit Provider Registered Nurse
DX: I50.22 Chronic systolic (congestive) heart failure (principal); I08.3 Combined rheumatic disorders of mitral, aortic and tricuspid valves
CPT/HCPCS: 93306

== ENCOUNTER → 2024-10-22 14:28 | Outpatient (CLI) | payer MEDICARE, SELFPAY ==
[2023-03-04 11:10] VITALS: BMI 28.7
--- NOTE | 2024-10-22 14:32 | DI.ECHO.S_ITS ---
[facility]+ [facility] : : [address] : : [place] : : [id number] : : Phone: [phone] Echocardiogram Report + + :Name: MARE HANKINS Study Date: 10/22/2024 Height: 69 in : :[facility] ReadingLocation: Weight: 179 lb : : Gender: Male BSA: 2.0 m2 : :: 1935 Age: 89 yrs BP: 131/64 mmHg: :Reason For Study: CONGESTIVE HEART FAILURE : :Ordering Physician: LIV HONG : : Performed By: Hill Singh : :Referring: UNSPECIFIED : + + Interpretation Summary Left ventricular wall thickness is mildly increased. There is moderate global hypokinesis of the left ventricle. Septal motion is consistent with conduction abnormality. The ejection fraction is estimated to be 25-30%. There is moderate mitral regurgitation. The mitral regurgitant jet is eccentrically directed. The aortic valve is mildly calcified. The right ventricular systolic pressure is estimated to be at least 35 mmHg based on an estimated right atrial pressure of 3 mm Hg. Procedure: A two-dimensional transthoracic echocardiogram with color flow and Doppler was performed. The study quality was technically good. Comparison is made with the echocardiogram of 07/05/2024. The patient was in normal sinus rhythm during the exam. Left Ventricle: The left ventricle is normal in size. Left ventricular wall thickness is mildly increased. There is no ventricular septal defect visualized. The ejection fraction is estimated to be 25-30%. There is moderate global hypokinesis of the left ventricle. Septal motion is consistent with conduction abnormality. Diastolic parameters suggest a relaxation abnormality of the left ventricle, consistent with probable normal filling pressures. Right Ventricle: The right ventricle is normal in size and function. Atria: The left atrium is moderately dilated. Right atrial size is normal. There is no Doppler evidence for an interatrial shunt. Mitral Valve: There is mild mitral annular calcification. The mitral valve leaflets appear mildly thickened, but open well. There is no evidence of mitral valve prolapse. There is moderate mitral regurgitation. The mitral regurgitant jet is eccentrically directed. Aortic Valve: The aortic valve is trileaflet. The aortic valve is mildly calcified. There is minimally reduced leaflet mobility. No aortic regurgitation is present. Tricuspid Valve: The tricuspid valve leaflets are thin and pliable. The right ventricular systolic pressure is estimated to be at least 35 mmHg based on an estimated right atrial pressure of 3 mm Hg. There is mild tricuspid regurgitation. Pulmonic Valve: The pulmonic valve leaflets are thin and pliable; valve motion is normal. There is mild pulmonic regurgitation. Great Vessels: The aortic root is normal size. The dimensions of the ascending aorta are normal. The pulmonary artery is normal size. The IVC is of normal diameter and collapses greater than 50% with a sniff. This suggests a low right atrial pressure of 3 mm Hg. Pericardium/ Pleura There is no pericardial effusion. There is no pleural effusion. MMode/2D Measurements & Calculations LVIDd: 4.9 cm LVOT diam: 1.9 cm LVIDs: 3.5 cm Ao root diam: 3.1 cm FS: 28.1 % asc Aorta Diam: 3.3 cm EPSS: 1.2 cm Ao Arch Diam (Prox Trans): 2.6 cm IVSd: 1.2 cm LVPWd: 1.1 cm LV justin. diameter/BSA (cm/m^2): 2.5 LV sys. diameter/BSA (cm/m^2): 1.8 LA A2 area: 17.4 cm2 RA long axis: 5.1 cm LA A4 area: 23.6 cm2 RA area: 13.7 cm2 LA length (vol): 5.8 cm RA vol: 31.5 ml LA vol: 59.9 ml RA : 16.0 ml/m2 LA vol index: 30.4 ml/m2 IVC diam: 1.2 cm RVD1 (basal): 3.8 cm RVD2 (mid): 3.2 cm TAPSE: 1.9 cm Doppler Measurements & Calculations Ao V2 max: 167.6 cm/sec LVOT Max Magnus: 86.0 cm/sec Ao V2 mean: 122.2 cm/sec LV V1 max P.0 mmHg Ao max P.2 mmHg LV V1 VTI: 17.2 cm Ao mean P.5 mmHg KEVIN(I,D): 1.4 cm2 Ao V2 VTI: 34.4 cm KEVIN(V,D): 1.4 cm2 sev ratio: 0.50 KEVIN indexed to BSA (cm^2/m^2): 0.70 MV E max magnus: 45.7 cm/sec TR max magnus: 282.7 cm/sec MV A max magnus: 84.5 cm/sec TR max P.0 mmHg MV E/A: 0.54 PA V2 max: 107.2 cm/sec Med Peak E' Magnus: 3.6 cm/sec PA V2 mean: 67.9 cm/sec E/E' med: 12.7 PA mean P.1 mmHg Lat Peak E' Magnus: 4.2 cm/sec PA pr(Accel): 43.0 mmHg E/E' lat: 10.9 E/e' average: 11.8 MV dec time: 0.20 sec SV(LVOT): 47.5 ml Reading Physician:05:22 PM
== END ==
PROVIDERS: PCP Family Medicine; Referring Provider Internal Medicine; Visit Provider Internal Medicine
DX: I50.21 Acute systolic (congestive) heart failure (principal); I08.1 Rheumatic disorders of both mitral and tricuspid valves
CPT/HCPCS: 93306

== ENCOUNTER → 2025-03-08 14:09 | Outpatient (CLI) | payer MEDICARE, SELFPAY ==
[2023-03-04 11:10] VITALS: BMI 28.7
[2025-03-08 14:29] LABS: BUN Creatinine Ratio 18.3 (6-22); Blood Urea Nitrogen 45 mg/dL (9-20); Carbon Dioxide 27 mmol/L (22-32); Chloride 104 mmol/L (98-107); Estimated Glomerular Filt Rate 25 mL/min (>60); Glucose 105 mg/dL (70-99); HEMOLYSIS < 15 (0-50); Sodium 138 mmol/L (137-145)
[2025-03-08 14:31] LABS: Potassium 5.6 mmol/L (3.4-5.1)
== END ==
PROVIDERS: PCP Family Medicine; Referring Provider Internal Medicine; Visit Provider Internal Medicine
DX: I50.23 Acute on chronic systolic (congestive) heart failure (principal)
CPT/HCPCS: 80048

== ENCOUNTER 2025-08-27 12:45 | Emergency (ER) | payer MEDICARE, SELFPAY ==
[2025-05-09 11:44] VITALS: BMI 28.7
[2025-08-27] VITALS (9 sets, daily range): BP systolic 82–126; BP diastolic 51–64; PULSE 82–102; RESP 18–29; TEMP 36.7; O2SAT 90–97; BMI 27.6
--- NOTE | 2025-08-27 13:08 | DI.RAD.S_ITS ---
PROCEDURE: XR CHEST 1V INDICATIONS: Shortness of breath TECHNIQUE: One view of the chest was acquired. COMPARISON: [facility], CR, XR CHEST 1V, 03/04/2023, 5:25. FINDINGS: Surgical changes and devices: None. Lungs and pleura: No pneumothorax. Query trace bilateral pleural effusions. Bibasilar atelectasis.. Mediastinum: Mediastinal contours appear normal. Heart size is normal. Large hiatal hernia. Bones and chest wall: No suspicious bony lesions. Overlying soft tissues appear unremarkable. IMPRESSION: Query trace bilateral pleural effusions. Bibasilar atelectasis. Large hiatal hernia. Approved by: Era Sinclair M.D.,Ph.D. on 08/27/2025 at 13:50
[2025-08-27 13:32] LABS: Add Manual Diff / Slide Review NO; Hematocrit 39.7 % (41-53); Hemoglobin 13.2 g/dL (13.5-17.5); Lymphocytes Absolute Auto 800 /uL (1100-4500); Mean Corpuscular HGB Conc 33.2 % (30-36); Mean Corpuscular Hemoglobin 31.1 PG (26-34); Mean Corpuscular Volume 93.7 fL (80-100); Platelet Count 280 X10^3/uL (150-400)
[2025-08-27 13:39] LABS: INR 1.5 (0.9-1.3); Prothrombin Time 16.4 SECONDS (9.4-12.5)
[2025-08-27 13:43] LABS: Alanine Aminotransferase 39 IU/L (<50); Albumin 3.9 g/dL (3.5-5.0); Albumin Globulin Ratio 1.0 (1.0-2.8); Alkaline Phosphatase 113 U/L (38-126); Blood Urea Nitrogen 49 mg/dL (9-20); Calcium 9.0 mg/dL (8.4-10.2); Carbon Dioxide 25 mmol/L (22-32); Chloride 107 mmol/L (98-107); Estimated Glomerular Filt Rate 20 mL/min (>60); Globulin 4.0 g/dL (1.7-4.1); Glucose 130 mg/dL (70-99); HEMOLYSIS < 15 (0-50); Potassium 4.7 mmol/L (3.4-5.1); Sodium 143 mmol/L (137-145); Total Protein 7.9 g/dL (6.3-8.2)
[2025-08-27 13:44] LABS: Lactate (Lactic Acid) 1.5 mmol/L (0.7-2.1)
[2025-08-27 13:56] LABS: NT-proBNP (BNP-Adult 18+) 1270 pg/mL (<450); Troponin I 0.015 ng/mL (0.01-0.034)
--- NOTE | 2025-08-27 14:06 | EKG_ITS ---
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
[2025-08-27 14:18] LABS: Influenza A - CEPHEID Flu A NEGATIVE (NEGATIVE); Influenza B - CEPHEID Flu B NEGATIVE (NEGATIVE)
[2025-08-27 14:19] LABS: COVID-19 CEPHEID 4-PLEX PCR Negative (Negative)
[2025-08-27] MEDS: FUROSEMIDE 40 MG/4 ML VIAL IV (15:11)
[2025-08-27] MEDS: AZITHROMYCIN 500 MG in DEXTROSE 5% IN WATER 250 ML 250 MG IV (15:12)
--- NOTE | 2025-08-27 15:57 | ED.SOB ---
HPI - SOB/Dyspnea General Chief Complaint: Shortness of Breath/Dyspnea Stated Complaint: CHF, cold, cough, phleghm, some swelling Time Seen by Provider: 08/27/25 13:14 Source: patient Mode of arrival: Family Vehicle Limitations: no limitations History of Present Illness HPI Narrative: 89-year-old male with past medical history CHF, CKD, atrial fibrillation, on Eliquis presents to the ED with 1 week of worsening shortness of breath. Patient has also had some URI symptoms such as a runny nose, cough. No fever, chills, chest pain, nausea, vomiting, abdominal pain, dysuria, lightheadedness, dizziness, syncope. Related Data Home Medications ?Medication ?Instructions ?Recorded ?Confirmed apixaban 5 mg tablet (Eliquis) 2.5 mg PO BID 11/02/24 11/02/24 bumetanide 0.5 mg tablet 0.5 mg PO DAILY 11/02/24 11/02/24 metoprolol succinate 25 mg 25 mg PO DAILY 11/02/24 11/02/24 tablet,extended release 24 hr sacubitril 24 mg-valsartan 26 mg 1 tab PO BID 05/09/25 05/09/25 tablet (Entresto) Previous Rx's ?Medication ?Instructions ?Recorded diltiazem HCl 60 mg 60 mg PO BID #60 caps 02/10/23 capsule,extended release 12 hr Disabled Parking Permit #1 ea 02/20/25 azithromycin 250 mg tablet 250 mg PO DAILY 4 days #4 tabs 08/27/25 Allergies Allergy/AdvReac Type Severity Reaction Status Date / Time No Known Drug Allergies Allergy Verified 08/27/25 13:02 Review of Systems Constitutional Constitutional: Denies chills, Reports fatigue, Denies fever(s), Denies frequent falls, Denies lethargy and Denies weakness Eyes Eyes: Denies change in vision, Denies eye discharge, Denies irritation and Denies loss of vision ENT Ears, Nose, Mouth, and Throat: Denies change in voice, Denies dizziness, Denies neck pain, Denies sore throat and Denies throat swelling Cardiovascular Cardiovascular: Denies chest pain, Denies irregular heart rhythm, Denies lightheadedness, Denies palpitations, Reports dyspnea, Reports dyspnea on exertion and Denies orthopnea Respiratory Respiratory: Reports cough, Reports dyspnea, Reports dyspnea on exertion and Denies wheezing Gastrointestinal Gastrointestinal: Denies abdominal pain, Denies change in bowel habits, Denies diarrhea, Denies nausea and Denies vomiting Musculoskeletal Musculoskeletal: Denies neck pain and Denies numbness Integumentary/Breasts Skin/Breast: Denies pruritus, Denies erythema, Denies rash and Denies wounds Neurologic Neurologic: Denies behavioral changes, Denies confusion, Denies dizziness, Denies frequent falls, Denies loss of vision, Denies numbness and Denies weakness Psychiatric Psychiatric: Denies anxiety, Denies behavioral changes, Denies confusion, Denies depression, Denies homicidal ideation and Denies suicidal ideation Endocrine Endocrine: Reports fatigue, Denies flushing and Denies palpitations Hematologic/Lymphatic Hematologic/Lymphatic: Denies easy bruising Allergic/Immunologic Allergic/Immunologic: Denies urticaria, Denies throat swelling and Denies wheezing Patient History Medical History (Updated 08/27/25 @ 16:28 by Corine Ramirez PA-C) Iron deficiency anemia Insomnia 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 GERD (gastroesophageal reflux disease) Bronchitis (09/25/04) Pulmonary embolism Acute exacerbation of CHF (congestive heart failure) Social History marital status: household members: spouse lives independently: Yes alcohol intake: former substance use type: does not use Smoking Status: Former smoker tobacco type: cigarettes alcohol intake frequency: holidays/special occasions only Exam Narrative Exam Narrative: Const General:?cooperative, healthy appearing and comfortable [facility] Head:?normal to inspection Ears:?hearing grossly normal bilaterally Nose:?external nose normal Face and sinus:?normal facial exam and sinuses nontender Mouth:?oral mucosae normal Throat:?posterior oropharynx normal Eyes General:?appearance normal, both eyes and all related structures Neck Neck:?normal visual inspection and no lymphadenopathy noted Resp Effort & Inspection:?normal respiratory effort Auscultation:?clear to auscultation bilaterally Cardio Rate:?regular rate Rhythm:?regular rhythm Neuro General:?patient alert, patient awake and patient oriented x3 Initial Vital Signs Initial Vital Signs: Vital Signs Temperature 98.0 F 08/27/25 13:02 Pulse Rate 102 H 08/27/25 13:02 Respiratory Rate 24 08/27/25 13:02 Blood Pressure 107/61 08/27/25 13:02 Pulse Oximetry 93 08/27/25 13:02 Oxygen Delivery Method Room Air 08/27/25 13:02 Course Orders Ordered: ED Orders 08/27/25 13:08 XR chest 1V Stat EKG-12 Lead Stat Measure peak expiratory flow STAT RT Consult Eval and Treat STAT 08/27/25 13:22 Complete Blood Count AUTO DIFF Stat Comprehensive Metabolic Panel Stat Lactate (Lactic Acid) Stat NT-proBNP (BNP-Adult 18+) Stat Prothrombin Time INR Stat Troponin I Stat 08/27/25 13:30 Covid-19 + FLU A/B + RSV - PCR Stat Discontinued Medications Furosemide (Furosemide 40 Mg/4 Ml Vial) 40 mg IV NOW ONE Stop: 08/27/25 14:53 Last Admin: 08/27/25 15:11 Dose: 40 mg Documented By: RANDI Azithromycin 500 mg/ Dextrose 250 mls @ 250 mls/hr IV NOW ONE Stop: 08/27/25 15:05 Last Admin: 08/27/25 15:12 Dose: 250 mls/hr Documented By: RANDI Vital Signs Vital signs: Vital Signs - 8 hr 08/27/25 13:02 08/27/25 13:33 08/27/25 13:34 Temperature 98.0 F Pulse Rate 102 H 88 Respiratory Rate 24 Blood Pressure 107/61 82/51 L Pulse Oximetry 93 91 Oxygen Delivery Method Room Air 08/27/25 13:44 08/27/25 13:44 08/27/25 14:00 Temperature Pulse Rate 89 Respiratory Rate 25 H Blood Pressure 108/58 L 103/55 L Pulse Oximetry 90 L Oxygen Delivery Method 08/27/25 14:00 08/27/25 14:30 08/27/25 14:30 Temperature Pulse Rate 85 84 Respiratory Rate 27 H 18 Blood Pressure 106/62 Pulse Oximetry 91 91 Oxygen Delivery Method 08/27/25 15:00 08/27/25 15:00 08/27/25 15:30 Temperature Pulse Rate 85 Respiratory Rate 25 H Blood Pressure 110/64 126/60 Pulse Oximetry 92 Oxygen Delivery Method 08/27/25 15:30 08/27/25 16:00 08/27/25 16:00 Temperature Pulse Rate 83 82 Respiratory Rate 29 H 29 H Blood Pressure 104/57 L Pulse Oximetry 97 Oxygen Delivery Method MDM - SOB/Dyspnea Lab Data 08/27/25 13:22 08/27/25 13:22 Labs: Lab Results 08/27/25 08/27/25 Range/Units 13:22 13:30 WBC 9.8 (4.5-11.0) X10^3/uL RBC 4.23 L (4.5-5.9) X10^6/uL Hgb 13.2 L (13.5-17.5) g/dL Hct 39.7 L (41-53) % MCV 93.7 (80-100) fL MCH 31.1 (26-34) PG MCHC 33.2 (30-36) % RDW 13.8 (11.6-14.8) % Plt Count 280 (150-400) X10^3/uL Neut % (Auto) 81.0 H (50-75) % Lymph % (Auto) 8.4 L (25-40) % [place] % (Auto) 7.0 (3-14) % Eos % (Auto) 3.0 (2-4) % Baso % (Auto) 0.6 (0-2) % Neut # (Auto) 8000 H (8436-4081) /uL Lymph # (Auto) 800 L (4627-7041) /uL [place] # (Auto) 700 (0-900) /uL Eos # (Auto) 300 (0-450) /uL Baso # (Auto) 100 (0-100) /uL PT 16.4 H (9.4-12.5) SECONDS INR 1.5 H (0.9-1.3) Sodium 143 (137-145) mmol/L Potassium 4.7 (3.4-5.1) mmol/L Chloride 107 (98-107) mmol/L Carbon Dioxide 25 (22-32) mmol/L BUN 49 H (9-20) mg/dL Creatinine 2.94 H (0.66-1.25) mg/dL Estimated GFR 20 L (>60) mL/min BUN/Creatinine Ratio 16.7 (6-22) Glucose 130 H (70-99) mg/dL Lactate 1.5 (0.7-2.1) mmol/L Calcium 9.0 (8.4-10.2) mg/dL Total Bilirubin 0.5 (0.2-1.3) mg/dL AST 37 (17-59) IU/L ALT 39 (<50) IU/L Alkaline Phosphatase 113 (38-126) U/L Troponin I 0.015 (0.01-0.034) ng/mL NT-Pro-B Natriuret Pep 1270 H (<450) pg/mL Total Protein 7.9 (6.3-8.2) g/dL Albumin 3.9 (3.5-5.0) g/dL Globulin 4.0 (1.7-4.1) g/dL Albumin/Globulin Ratio 1.0 (1.0-2.8) SARS-CoV-2 (PCR) Negative (Negative) Influenza A (RT-PCR) Flu a negative (NEGATIVE) Influenza B (RT-PCR) Flu b negative (NEGATIVE) RSV (PCR) Negative (Negative) Urine Dip Bedside Urine Glucose Negative Bedside Urine Bilirubin - Negative Bedside Urine Ketone - Negative Urine Specific [place] 1.010 Bedside Urine Occult Blood +/- Bedside Urine pH 6.0 Bedside Urine Protein - Negative Bedside Urine Urobilinogen - Negative Bedside Urine Nitrite - Negative Bedside Urine Leukocytes - Negative Esterase MDM Narrative Medical decision making narrative: 89-year-old male with past medical history CHF, CKD, atrial fibrillation, on Eliquis presents to the ED with 1 week of worsening shortness of breath. Cardiac workup, respiratory panel obtained. Respiratory panel was negative for influenza a, influenza B, RSV, COVID-19. EKG is normal sinus rhythm with sinus arrhythmia. No acute ST-T changes. Chest x-ray shows query trace bilateral pleural effusions. Bibasilar atelectasis. Large hiatal hernia. Creatinine elevated 2.94, GFR 20. Both are baseline for patient. Troponin within normal limits. BNP was elevated to 1270. Although the BNP did not meet age-related threshold for an acute CHF exacerbation, given patient is symptomatic, patient given a dose of Lasix IV. Patient also given 1st dose of azithromycin. Patient's O2 sat, shortness of breath improved with the Lasix. Patient discharged home with prescription for azithromycin. Recommend follow-up with PCP as soon as possible. ED return precautions discussed with patient. Patient verbalized understanding. Medical records reviewed: Yes Discharge Plan Departure Patient Disposition: Home Clinical Impression: Community acquired pneumonia Qualifiers: Laterality: unspecified laterality Qualified Code(s): J18.9 - Pneumonia, unspecified organism Instructions: DI for Pneumonia -- Adult Activity Restrictions/Additional Instructions: You were evaluated in the emergency department today for a cold and shortness of breath. You are being prescribed antibiotics for a pneumonia. Please take them as prescribed your 1st dose was given today you will need for more doses starting tomorrow. You were also given some Lasix to reduce the water in your lungs. Please follow-up with your PCP and Senior Biostatistician as soon as possible. Return to the ED if you have worsening symptoms, chest pain, shortness of breath. Prescriptions: New azithromycin 250 mg tablet 250 mg PO DAILY 4 Days Qty: 4 0RF No Action Eliquis 5 mg tablet 2.5 mg PO BID bumetanide 0.5 mg tablet 0.5 mg PO DAILY metoprolol succinate 25 mg tablet extended release 24 hr 25 mg PO DAILY Entresto 24-26 mg tablet 1 tab PO BID (DME) Disabled Parking Permit See Rx Instructions .Route .MEDSUPPLY Qty: 1 0RF Rx Instructions: see attached form diltiazem HCl 60 mg Capsule,Extended Release 12 Hr 60 mg PO BID Qty: 60 0RF Referrals: Hill Victor MD [Primary Care Provider, Family Practice] Stand Alone Forms: Patient Portal/API
== END 2025-08-27 17:00 | disposition home or self-care (01) ==
PROVIDERS: Emergency Provider Student in an Organized Health Care Education/Training Program; PCP Family Medicine
DX: J18.8 Other pneumonia, unspecified organism (principal); R05.9 Cough, unspecified; J00 Acute nasopharyngitis [common cold]; Z87.891 Personal history of nicotine dependence
CPT/HCPCS: 36415; 71045; 80053; 81003; 83605; 83880; 84484; 85025; 85610; 87637; 93005; 93010; 96365; 96375; 99284; J1938; J7060